=== PATIENT | male | born 1950 | race Caucasian/White ===

== ENCOUNTER 2017-05-28 12:00 | Inpatient (IN) | payer OTHER ==
[~2017-05-28] VITALS: Ht 177.8 cm; Wt 106.0 kg
[~2017-05-28 12:00] MED LIST: ACET-749 PO; ALBUAER19 INH; ALL300 PO; AMLO-110 PO; ASPI325T45 PO; ATV1 PO; CRS10 PO; DPKEC250 PO; ESCI1TAB10 PO; FAMO20TA11 PO; FERR325T51 PO; INDO25CA14 PO; KETO2CRE14 TOP; MCRK20 PO; SULF800T23 PO; TAMS0.4C38 PO; TRIA0.1C20 TOP; [UNRECOGNIZED DRUG - CODE] TOP
--- NOTE | 2017-05-28 12:23 | EMERGENCY ROOM VISIT NOTE ---
History Report prepared by Anthony: Kristie Velazco Under the Supervision of: Dr. Sherwin Bianchi M.D. First contact with patient: 12:18 Chief Complaint: KNEEPAIN Stated Complaint: LEFT KNEE PAIN History of Present Illness The patient is a 66 year old male who presents to the Emergency Room with complaints of sudden left knee pain beginning at 1000 this morning. The patient rates the pain at a 5/10. Per his family, the patient fell trying to get into the shower. Per family, the patient has had 4 hip surgeries and has a history of a total left knee replacement in August. His family also reports that his right knee has been quivering this past week. The patient denies hip, chest, and abdominal pain. Source of History: patient, family Onset: 1000 this morning Position: knee (left) Symptom Intensity: rated at a 5/10 Timing: other (sudden ) Associated Symptoms: No chest pain, No abdominal pain Review of Systems All systems have been listed, reviewed, and are negative other than those previously mentioned. Please see Additional Medical History Sheet. Past Medical & Surgical Medical Problems: (1) ARF (acute renal failure) (2) Hypertension (3) Hypoxia (4) Infected prosthesis of left hip (5) Left Periprosthetic Distal Femur Fracture (6) Mental retardation Family History No pertinent family history Social History Smoking Status: Never Smoker Alcohol Use: none Drug Use: none Marital Status: single Housing Status: lives with family Occupation Status: disabled Current/Historical Medications Scheduled Allopurinol (Zyloprim *), 300 MG PO BID Amlodipine (Norvasc), 5 MG PO DAILY Aspirin (Aspirin Ec), 81 MG PO DAILY Ciprofloxacin Tab (Cipro), 500 MG PO BID Divalproex Sodium Delay Rel (Depakote Delay Rel *), 250 MG PO QAM Divalproex Sodium Delay Rel (Depakote Delay Rel *), 500 MG PO HS Escitalopram (Lexapro), 10 MG PO DAILY Escitalopram Oxalate (Lexapro), 20 MG PO DAILY Fenofibrate (Tricor), 48 MG PO DAILY Iron-Vitamin C (Vitron-C), 1 TAB PO QAM Ketoconazole (Topical) (Nizoral A-D), 1 APPLN TOP Q72H Lorazepam (Ativan *), 1 MG PO HS Omeprazole (Prilosec), 40 MG PO QAM Rosuvastatin Calcium (Crestor *), 10 MG PO DAILY Tamsulosin Hcl (Flomax), 1 CAP PO DAILY Scheduled PRN Albuterol Inhaler (Ventolin Inhaler), 2 PUFFS INH Q2H PRN for Wheezing Indomethacin (Indomethacin), 50 MG PO TID PRN for GOUT Allergies Coded Allergies: BEE STING (Verified Allergy, Unknown, RASH, 05/05/15) Penicillins (Verified Allergy, Unknown, RASH, 05/05/15) Physical Exam Vital Signs Date Time Temp Pulse Resp B/P (MAP) Pulse Ox O2 Delivery O2 Flow Rate FiO2 05/28/17 14:24 94 18 142/86 95 Room Air 05/28/17 14:10 95 Room Air 05/28/17 12:13 36.9 105 22 92 Room Air Physical Exam GENERAL: Patient awake, alert, oriented x 3. Patient follows commands. Patient does not appear toxic. Patient is adequately hydrated and well- nourished. Appears mentally impaired. SKIN: No erythema, pallor, cyanosis or rash HEENT: Normal head, pupils equal, reactive to light and accommodation. LUNGS: Clear to auscultation. No wheezes, no rales, no rhonchi. HEART: No murmurs. No gallops. No rubs ABDOMEN: Soft, non-tender. EXTREMITIES: Full range of motion of right hip and right knee. Patient appears to have adequate range of motion of left hip. Left knee is partially flexed and appears swollen. Sensory and circulatory function distally is intact on left leg. NEUROLOGIC: Cranial nerves II-XII within normal limits. No gross motor sensory function deficits. Medical Decision & Procedures ER Provider Diagnostic Interpretation: Radiology results as stated below per my review and radiologist interpretation: L KNEE 1 OR 2 VIEWS ROUTINE CLINICAL HISTORY: Left knee pain status post trauma COMPARISON: None. DISCUSSION: There are postsurgical changes of a total left knee arthroplasty. There is a displaced oblique/spiral fracture of the metadiaphyseal portion of the distal femur. The fracture begins at the level of hip arthroplasty femoral spike. The fracture demonstrates 3.6 mm of maximal distraction. There is 16 degrees of vertex posterior angulation. IMPRESSION: Displaced oblique/spiral fracture of the metadiaphyseal portion of the distal femur. Electronically signed by: Benny Viramontes M.D. 05/28/2017 1:38 PM Dictated Date/Time: 05/28/2017 1:35 PM L PELVIS/UNILATERAL HIP 2-3VIEWS CLINICAL HISTORY: fell trauma. Pain. COMPARISON: None. DISCUSSION: Findings diffuse heterotopic bone formation involving the left acetabulum and proximal left femoral region. Extensive heterotopic bone formation may indicate a healing process. No evidence for well-defined fracture. Mild acetabular protrusion. IMPRESSION: 1. No acute bony abnormality. 2. Extensive heterotopic bone formation surrounding the left hemipelvis and left femoral shaft most likely on a post procedural bases. The above report was generated using voice recognition software. It may contain grammatical, syntax or spelling errors. Electronically signed by: Carlos Snell M.D. 05/28/2017 1:34 PM Dictated Date/Time: 05/28/2017 1:25 PM CHEST ONE VIEW PORTABLE HISTORY: Preop. COMPARISON: Chest 08/15/2015. FINDINGS: There are low lung volumes. No pleural effusions. No pneumothorax. No focal lung consolidations to suggest pneumonia. No evidence for pulmonary edema. The heart is mildly enlarged. IMPRESSION: Low lung volumes and mild cardiomegaly. Electronically signed by: Jamal Rose M.D. 05/28/2017 1:43 PM Dictated Date/Time: 05/28/2017 1:42 PM Laboratory Results 05/28/17 13:50 Red Blood Count 4.69, Mean Corpuscular Volume 82.3, Mean Corpuscular Hemoglobin 27.5, Mean Corpuscular Hemoglobin Concent 33.4, Mean Platelet Volume 9.5, Neutrophils (%) (Auto) 89.8, Lymphocytes (%) (Auto) 4.1, Monocytes (%) (Auto) 5.5, Eosinophils (%) (Auto) 0.2, Basophils (%) (Auto) 0.1, Neutrophils # (Auto) 14.16, Lymphocytes # (Auto) 0.65, Monocytes # (Auto) 0.86, Eosinophils # (Auto) 0.03, Basophils # (Auto) 0.02 05/28/17 13:50 Test 05/28/17 13:50 White Blood Count 15.77 K/uL (4.8-10.8) Red Blood Count 4.69 M/uL (4.7-6.1) Hemoglobin 12.9 g/dL (14.0-18.0) Hematocrit 38.6 % (42-52) Mean Corpuscular Volume 82.3 fL (80-100) Mean Corpuscular Hemoglobin 27.5 pg (25-34) Mean Corpuscular Hemoglobin Concent 33.4 g/dl (32-36) Platelet Count 313 K/uL (130-400) Mean Platelet Volume 9.5 fL (7.4-10.4) Neutrophils (%) (Auto) 89.8 % Lymphocytes (%) (Auto) 4.1 % Monocytes (%) (Auto) 5.5 % Eosinophils (%) (Auto) 0.2 % Basophils (%) (Auto) 0.1 % Neutrophils # (Auto) 14.16 K/uL (1.4-6.5) Lymphocytes # (Auto) 0.65 K/uL (1.2-3.4) Monocytes # (Auto) 0.86 K/uL (0.11-0.59) Eosinophils # (Auto) 0.03 K/uL (0-0.5) Basophils # (Auto) 0.02 K/uL (0-0.2) RDW Standard Deviation 46.1 fL (36.4-46.3) RDW Coefficient of Variation 15.6 % (11.5-14.5) Immature Granulocyte % (Auto) 0.3 % Immature Granulocyte # (Auto) 0.05 K/uL (0.00-0.02) Anion Gap 9.0 mmol/L (3-11) Est Creatinine Clear Calc Drug Dose 68.1 ml/min Estimated GFR () 65.9 Estimated GFR (Non- 56.9 BUN/Creatinine Ratio 18.3 (10-20) Calcium Level 9.3 mg/dl (8.5-10.1) Total Bilirubin 0.3 mg/dl (0.2-1) Aspartate Amino Transf (AST/SGOT) 10 U/L (15-37) Alanine Aminotransferase (ALT/SGPT) 20 U/L (12-78) Alkaline Phosphatase 116 U/L (45-117) Total Protein 8.1 gm/dl (6.4-8.2) Albumin 3.6 gm/dl (3.4-5.0) Globulin 4.5 gm/dl (2.5-4.0) Albumin/Globulin Ratio 0.8 (0.9-2) Laboratory results as stated above per my review. Medications Administered Medications (Trade) Dose Ordered Sig/Miranda Route Start Time Stop Time Status Last Admin Dose Admin Oxycodone/ Acetaminophen (Percocet 5-325mg Tab) 1 tab ONE ONCE PO 05/28/17 12:30 05/28/17 12:31 DC 05/28/17 12:34 1 TAB Oxycodone HCl (Roxicodone Immediate Rel Tab) `1-2 tabs for pain 1 tab ... Q4HWA PRN PO 05/28/17 15:15 06/11/17 15:14 05/28/17 17:14 5 MG ECG Indication: weakness Rate (beats per minute): 97 Rhythm: sinus rhythm Findings: 1st degree AV block, nonspecific-ST abn, other (left ventricular hypertrophy) ED Course 1219: Past medical records reviewed. The patient was evaluated in room C10. A complete history and physical examination was performed. 1230: Ordered Oxycodone/ Acetaminophen 1 tab PO. 1438: Discussed the patient's case with Dr. Perry, and he suggested I call medicine. 1455: Discussed the patient's case with Dr. Rea. The patient will be evaluated for further management. 1525: Discussed the patient's case with Dr. Perry. The patient will be evaluated for further management. 1541: Upon reevaluation, the patient is resting.I discussed today's findings with him and his family. He and his family verbalized agreement of the treatment plan. I spoke with Dr. Rea of the [facility] to evaluate the patient for further management. Medical Decision Nurses notes reviewed. Medical history sheet reviewed. Differential diagnosis includes but is not limited to: fracture and dislocation of left knee and left hip. Multiple labs, EKG and imaging were obtained. Please see above. The patient has a spiral fracture of his distal right femur. White count is slightly elevated. Patient is mildly anemic. I discussed care with the hospitalist and with the orthopedist. I also discussed care with the patient and family members. The patient will require further evaluation and treatment in the hospital. Medication Reconcilliation Current Medication List: was personally reviewed by me Blood Pressure Screening Patient's blood pressure: Elevated blood pressure will be monitored by hospitalist Consults Time Called: 1410 [facility] Call: 1432 Discussed the patient's case with Dr. Perry. Dr. Perry suggested I call medicine. Additional Consults: Time Called: 1450 Consulted Physician: Dr. Rea- [facility] Returned Call: 1451 Additional Comments: Discussed the patient's case with Dr. Rea. The patient will be evaluated for further management. Time Called: 1520 [facility] Returned Call: 1525 Additional Comments: Discussed the patient's case with Dr. Perry. The patient will be evaluated for further management. Impression Primary Impression: Femur fracture, left Scribe Attestation The scribe's documentation has been prepared under my direction and personally reviewed by me in its entirety. I confirm that the note above accurately reflects all work, treatment, procedures, and medical decision making performed by me. Departure Information Dispostion Being Evaluated By Hospitalist Referrals No Doctor, Assigned (PCP) Patient Instructions [facility]
[2017-05-28] MEDS ORDERED: OXYCODONE/ACETAMINOPHEN 5-325 TAB PO ONE (12:30)
--- NOTE | 2017-05-28 13:36 | DIAGNOSTIC IMAGING REPORT ---
L PELVIS/UNILATERAL HIP 2-3VIEWS CLINICAL HISTORY: fell trauma. Pain. COMPARISON: None. DISCUSSION: Findings diffuse heterotopic bone formation involving the left acetabulum and proximal left femoral region. Extensive heterotopic bone formation may indicate a healing process. No evidence for well-defined fracture. Mild acetabular protrusion. IMPRESSION: 1. No acute bony abnormality. 2. Extensive heterotopic bone formation surrounding the left hemipelvis and left femoral shaft most likely on a post procedural bases. The above report was generated using voice recognition software. It may contain grammatical, syntax or spelling errors. Electronically signed by: Carlos Snell M.D. 05/28/2017 1:34 PM Dictated Date/Time: 05/28/2017 1:25 PM
--- NOTE | 2017-05-28 13:40 | DIAGNOSTIC IMAGING REPORT ---
L KNEE 1 OR 2 VIEWS ROUTINE CLINICAL HISTORY: Left knee pain status post trauma COMPARISON: None. DISCUSSION: There are postsurgical changes of a total left knee arthroplasty. There is a displaced oblique/spiral fracture of the metadiaphyseal portion of the distal femur. The fracture begins at the level of hip arthroplasty femoral spike. The fracture demonstrates 3.6 mm of maximal distraction. There is 16 degrees of vertex posterior angulation. IMPRESSION: Displaced oblique/spiral fracture of the metadiaphyseal portion of the distal femur. Electronically signed by: Benny Viramontes M.D. 05/28/2017 1:38 PM Dictated Date/Time: 05/28/2017 1:35 PM
--- NOTE | 2017-05-28 13:44 | DIAGNOSTIC IMAGING REPORT ---
CHEST ONE VIEW PORTABLE HISTORY: Preop. COMPARISON: Chest 08/15/2015. FINDINGS: There are low lung volumes. No pleural effusions. No pneumothorax. No focal lung consolidations to suggest pneumonia. No evidence for pulmonary edema. The heart is mildly enlarged. IMPRESSION: Low lung volumes and mild cardiomegaly. Electronically signed by: Jamal Rose M.D. 05/28/2017 1:43 PM Dictated Date/Time: 05/28/2017 1:42 PM
[2017-05-28 14:10] VITALS: O2SAT 95; Ht 177.8 cm; Wt 106.0 kg
[2017-05-28] MEDS ORDERED: ASPI81TA28 PO (14:15)
[2017-05-28] MEDS ORDERED: ESCI10TA17 PO (14:15)
[2017-05-28] MEDS ORDERED: FENO48TA9 PO (14:20)
[2017-05-28 14:25] LABS: BUN/CREATININE RATIO 18.3 (10-20); CALCIUM 9.3 mg/dl (8.5-10.1); CREATININE 1.3 mg/dl (0.60-1.40); POTASSIUM 3.7 mmol/L (3.5-5.1)
[2017-05-28] MEDS ORDERED: PRLSR20 PO (14:26)
[2017-05-28 14:27] LABS: ALB/GLOB RATIO 0.8 (0.9-2)
[2017-05-28] MEDS ORDERED: FERRTAB18 PO (14:27)
[2017-05-28] MEDS ORDERED: CIPR1TAB11 PO (14:35)
[2017-05-28 14:40] LABS: BASO % 0.1 %; BASO ABS # 0.02 K/uL (0-0.2); COMPLETE YES; EOS % 0.2 %; HEMATOCRIT 38.6 % (42-52); IG% 0.3 %; LYMPH % 4.1 %; LYMPH ABS # 0.65 K/uL (1.2-3.4); MEAN CELL VOLUME 82.3 fL (80-100); MEAN CORPUSCULAR HEMOGLOBIN 27.5 pg (25-34); MEAN CORPUSCULAR HGB CONC 33.4 g/dl (32-36); MEAN PLATELET VOLUME 9.5 fL (7.4-10.4); MONO % 5.5 %; NEUT % 89.8 %; PLATELET COUNT 313 K/uL (130-400); RED BLOOD COUNT 4.69 M/uL (4.7-6.1); WHITE BLOOD COUNT 15.77 K/uL (4.8-10.8)
[2017-05-28] MEDS ORDERED: INFLUENZA ADMINISTRATION CHARGE ONE (15:15)
[2017-05-28] MEDS ORDERED: INFLUENZA VACCINE HIGH DOSE 65+ 0.5 ML SYR IM. ONE (15:15)
[2017-05-28] MEDS ORDERED: KETOROLAC TROMETHAMINE 15 MG/ML VIAL IV. PRN (15:15)
[2017-05-28] MEDS ORDERED: MAGNESIUM HYDROXIDE SUSP 30 ML UDC PO PRN (15:15)
[2017-05-28] MEDS ORDERED: ALBUTEROL HFA 8 GM INHALER INH PRN ×2 (15:15→15:30)
[2017-05-28] MEDS ORDERED: MoRPHine SULFATE 2 MG/ML CARP IV PRN (15:15)
[2017-05-28] MEDS ORDERED: ONDANSETRON INJ 2 MG/ML 2 ML VIAL IV PRN (15:15)
[2017-05-28] MEDS ORDERED: MoRPHine SULFATE 4 MG/ML 1 ML CARP\\VIAL IV PRN (15:15)
[2017-05-28] MEDS ORDERED: ALUMINUM/MAGNESIUM SUSP 30 ML UDC PO PRN (15:15)
[2017-05-28] MEDS ORDERED: OXYCODONE HCL IR 5 MG TAB (IMMEDIATE RELEASE) PO PRN (15:15)
[2017-05-28] MEDS ORDERED: OXYCODONE/ACETAMINOPHEN 5-325 TAB PO PRN (15:30)
[2017-05-28] MEDS ORDERED: KETOCONAZOLE TOP SCH (15:30)
[2017-05-28] MEDS ORDERED: INDOMETHACIN 25 MG CAP PO PRN (15:30)
--- NOTE | 2017-05-28 15:44 | Medical Consult ---
Consultation Date of Consultation: May 28, 2017. Attending Physician: Reason for Consultation: Medical management History of Present Illness Patient is a pleasant 66 y/o male, with PMHx of HTN, hypercholesterolemia, prediabetic, seizure disorder, anxiety, depression, gout, iron deficiency anemia , BPH, and GERD, who presented to the ED due to a fall. History came largely from family at bedside due to patient's h/o mental retardation. Patient was trying to get into the shower when he slipped and fell, landing on L side. Family witnessed entire event. No LOC/syncope. No head injury. Pain is currently well controlled. Fall resulted in L distal femur fracture. No h/o MA, CHF. No history of TIA/CVA, PE/DVT. Patient is currently prediabetic- diet controlled. Family notes he has gained some weight over the last few months. He is on chronic Cipro BID suppression therapy due to L hip infection. He has had multiple surgical procedures in the past w/ no complications. Patient denies any fever, chills, sweats, lightheadedness, dizziness, vision changes, CP, palpitations, edema, SOB, wheezing, cough, abdominal pain, nausea, vomiting, diarrhea, urinary symptoms, melena, numbness/tingling, weakness, anxiety/ depression, active bleeding, or new skin discoloration/changes. Past Medical/Surgical History Medical Problems: HTN Gout seizure disorder anxiety depression iron deficiency anemia BPH hypercholesterolemia GERD prediabetic, diet controlled mental retardation Surgical history: L hip surgery x4 L knee replacement hernia repair Family History No pertinent family history Social History Smoking Status: Never Smoker Drug Use: none Marital Status: single Housing Status: lives with family Occupation Status: disabled Allergies Coded Allergies: BEE STING (Verified Allergy, Unknown, RASH, 05/05/15) Penicillins (Verified Allergy, Unknown, RASH, 05/05/15) Home Medications Reported Home Medications Medications Dose Route/Sig Max Daily Dose Days Date Category Dose Instructions Cipro (Ciprofloxacin) 250 Mg Tab 500 Mg PO BID 05/28/17 Reported Vitron-C (Iron-Vitamin C) 1 Tab Tab 1 Tab PO QAM 05/28/17 Reported Prilosec (Omeprazole) 20 Mg Capcr 40 Mg PO QAM 05/28/17 Reported Tricor (Fenofibrate) 48 Mg Tab 48 Mg PO DAILY 05/28/17 Reported Lexapro (Escitalopram Oxalate) 10 Mg Tab 10 Mg PO DAILY 05/28/17 Reported 30MG TOTAL Aspirin Ec (Aspirin) 81 Mg Tab 81 Mg PO DAILY 05/28/17 Reported Nizoral A-D (Ketoconazole (Topical)) 1 % Sha 1 Appln TOP Q72H 06/28/15 Reported Indomethacin 25 Mg Cap 50 Mg PO TID PRN 06/28/15 Reported Lexapro (Escitalopram Oxalate) 20 Mg Tab 20 Mg PO DAILY 06/21/15 Reported 30MG TOTAL Ventolin Inhaler (Albuterol) Aers 2 Puffs INH Q2H PRN 06/06/15 Reported Norvasc (Amlodipine Besylate) 5 Mg Tab 5 Mg PO DAILY 06/06/15 Reported Flomax (Tamsulosin Hcl) 0.4 Mg Cap 1 Cap PO DAILY 05/05/15 Reported Ativan * (Lorazepam) 1 Mg Tab 1 Mg PO HS 05/16/10 Reported Zyloprim * (Allopurinol) 300 Mg Tab 300 Mg PO BID 05/16/10 Reported Crestor * (Rosuvastatin Calcium) 10 Mg Tab 10 Mg PO DAILY 05/16/10 Reported Depakote Delay Rel * (Divalproex Sodium) 250 Mg Tabec 500 Mg PO HS 05/16/10 Reported Depakote Delay Rel * (Divalproex Sodium) 250 Mg Tabec 250 Mg PO QAM 05/16/10 Reported Current Inpatient Medications Current Inpatient Medications Medications (Trade) Dose Ordered Sig/Miranda Route Start Time Stop Time Status Last Admin Dose Admin Influenza Virus Vaccine (Fluzone High-Dose Pf 0.5 ml) 0.5 ml ONCE ONCE IM. 05/28/17 15:15 05/28/17 15:16 Physical Exam Date Time Temp Pulse Resp B/P (MAP) Pulse Ox O2 Delivery O2 Flow Rate FiO2 05/28/17 14:24 94 18 142/86 95 Room Air 05/28/17 14:10 95 Room Air 05/28/17 12:13 36.9 105 22 92 Room Air General Appearance: no apparent distress, + pertinent finding (mentally impaired ) Eyes: normal inspection, PERRL ENT: hearing grossly normal Neck: supple Respiratory/Chest: lungs clear, no respiratory distress, no accessory muscle use Cardiovascular: regular rate, rhythm Abdomen/GI: normal bowel sounds, non tender, soft Extremities/Musculoskelatal: no calf tenderness, no pedal edema Neurologic/Psych: alert, oriented x 3 Skin: normal color, warm/dry, no rash Laboratory Results Last 24 Hours Test 05/28/17 13:50 White Blood Count 15.77 K/uL Red Blood Count 4.69 M/uL Hemoglobin 12.9 g/dL Hematocrit 38.6 % Mean Corpuscular Volume 82.3 fL Mean Corpuscular Hemoglobin 27.5 pg Mean Corpuscular Hemoglobin Concent 33.4 g/dl Platelet Count 313 K/uL Mean Platelet Volume 9.5 fL Neutrophils (%) (Auto) 89.8 % Lymphocytes (%) (Auto) 4.1 % Monocytes (%) (Auto) 5.5 % Eosinophils (%) (Auto) 0.2 % Basophils (%) (Auto) 0.1 % Neutrophils # (Auto) 14.16 K/uL Lymphocytes # (Auto) 0.65 K/uL Monocytes # (Auto) 0.86 K/uL Eosinophils # (Auto) 0.03 K/uL Basophils # (Auto) 0.02 K/uL RDW Standard Deviation 46.1 fL RDW Coefficient of Variation 15.6 % Immature Granulocyte % (Auto) 0.3 % Immature Granulocyte # (Auto) 0.05 K/uL Sodium Level 137 mmol/L Potassium Level 3.7 mmol/L Chloride Level 103 mmol/L Carbon Dioxide Level 25 mmol/L Anion Gap 9.0 mmol/L Blood Urea Nitrogen 24 mg/dl Creatinine 1.30 mg/dl Est Creatinine Clear Calc Drug Dose 68.1 ml/min Estimated GFR () 65.9 Estimated GFR (Non- 56.9 BUN/Creatinine Ratio 18.3 Random Glucose 167 mg/dl Calcium Level 9.3 mg/dl Total Bilirubin 0.3 mg/dl Aspartate Amino Transf (AST/SGOT) 10 U/L Alanine Aminotransferase (ALT/SGPT) 20 U/L Alkaline Phosphatase 116 U/L Total Protein 8.1 gm/dl Albumin 3.6 gm/dl Globulin 4.5 gm/dl Albumin/Globulin Ratio 0.8 Assessment & Plan Patient is a pleasant 66 y/o male, with PMHx of HTN, hypercholesterolemia, prediabetic, seizure disorder, anxiety, depression, gout, iron deficiency anemia , BPH, and GERD, who presented to the ED due to a fall. L distal femur fracture secondary to mechanical fall: - Management as per orthopedics - Pain management with Percocet PRN- given in ED w/ good results - Will hold ASA daily pending ?surgical intervention by ortho - Patient has RCRI of 0.4%- low risk, no further cardiovascular workup required - Check vitamin D level Chronic suppression therapy for infected L hip: Continue Cipro 500 mg BID Prediabetic- diet controlled: - Check HgbA1c - BSG ACHS and ISS HTN: Continue Norvasc 5 mg daily Seizure disorder: Continue Depakote 250 mg QAM and 500 mg HS Anxiety, depression: Continue Lexapro 30 mg daily, Ativan 1 mg HS Gout: Continue Allopurinol 300 mg BID, Indomethacin 50 mg TID PRN Iron deficient anemia- baseline hgb 10-11- STABLE: Follow CBC Hypercholesterolemia: Continue Crestor 10 mg daily BPH: Continue Flomax 0.4 mg daily GERD: Protonix 40 mg daily- resume Prilosec at discharge DVT prophylaxis: As per orthopedics Dispo: As per primary team Reviewed: Pt Seen/Exam by Me History Pt has no new concerns. Denies pain related to his fracture. Family is present and state that pt was getting into the shower and did not clear the small lip of the bathtub. He fell but she was able to manage him initially to finish the shower, however after he was out, pt was unable to move due to pain. Family states that he does ambulate some, but not much due to a poorly healed hip replacement. He does not have any issues with the minimal steps that he does take. No c/o chest pain or SOB. Family states that pt does have some snoring/gasping at night. PCP wanted to have a sleep study done, however pt would not tolerate this so he has not been assessed for likely DANNA. Agree with HPI/ROS as noted. Family states that Dr. Rm was in to see pt and indicated that OR will likely be tomorrow. General Appearance: WD/WN, no apparent distress Respiratory: normal breath sounds, no respiratory distress Cardiovascular: normal peripheral pulses, regular rate, rhythm Gastrointestinal: non tender, soft Extremities: non-tender, no pedal edema Neurologic/Psychiatric: alert, other (answers yes/no questions, follows simple commands, pleasant) Skin Characteristics: normal color, warm/dry Assessment/Plan Agree with plan as outlined above L femur fracture s/p mechanical fall, planning for OR tomorrow Pt with baseline MR and will need family present for MDM
[2017-05-28] MEDS: INSULIN ASPART 100 UNITS/ML 3 ML PEN SC SCH ×3 (16:00→21:00)
[2017-05-28 16:30] VITALS: BP 135/81; PULSE 95; TEMP 36.9; O2SAT 94
[2017-05-28] MEDS ORDERED: GLUCOSE 10 TABS/TUBE PO PRN (16:30)
[2017-05-28] MEDS ORDERED: GLUCAGON FOR INJ 1 MG VIAL SQ PRN (16:30)
[2017-05-28] MEDS ORDERED: DEXTROSE 50% 50 ML SYR IV PRN (16:30)
[2017-05-28] MEDS ORDERED: GLUCOSE 40% GEL 15 GM TUBE PO PRN (16:30)
[2017-05-28] MEDS ORDERED: D5W AND 1/2NSS 1,000 ML IV SCH (17:15)
[2017-05-28 17:59] LABS: URINE APPEARANCE CLEAR (CLEAR); URINE BILIRUBIN NEG (NEG); URINE COLOR YELLOW; URINE NITRITE NEG (NEG); URINE SPECIFIC GRAVITY 1.023 (1.000-1.030); UROBILINOGEN NEG (NEG); ZZUR CULT IF INDIC CLEAN CATCH NO
[2017-05-28 18:01] LABS: MANUAL MICROSCOPIC REQUIRED? NO; REVIEW REQ? NO
[2017-05-28] MEDS: ROSUVASTATIN CALCIUM 10 MG TAB PO SCH (18:32)
[2017-05-28] MEDS: FENOFIBRATE 48 MG TAB PO SCH (18:32)
[2017-05-28] MEDS: SODIUM CHLORIDE 0.9% 1000ML 1,000 ML IV SCH (19:19)
[2017-05-28] MEDS ORDERED: ALLOPURINOL 300 MG TAB PO SCH (21:00)
[2017-05-28] MEDS ORDERED: LORAZEPAM 1 MG TAB PO SCH (21:00)
[2017-05-28] MEDS ORDERED: DIVALPROEX SODIUM 250 MG DELAY REL TAB PO SCH (21:00)
[2017-05-28] MEDS: LORAZEPAM 1 MG TAB PO SCH (21:26)
[2017-05-28] MEDS: DOCUSATE SODIUM 100 MG CAP PO SCH (21:26)
[2017-05-28] MEDS: CIPROFLOXACIN 250 MG TAB PO SCH (21:26)
[2017-05-28] MEDS: DIVALPROEX SODIUM 250 MG DELAY REL TAB PO SCH (21:26)
[2017-05-28] MEDS: ALLOPURINOL 300 MG TAB PO SCH (21:26)
[2017-05-28] MEDS: ACETAMINOPHEN 500 MG TAB PO SCH (21:27)
--- NOTE | 2017-05-28 21:30 | DIAGNOSTIC IMAGING REPORT ---
L FEMUR 2 VIEWS ROUTINE CLINICAL HISTORY: Femur fracture. COMPARISON: Left hip radiographs August 31, 2015 and left knee radiographs May 28, 2017 at 12:58 PM. FINDINGS: Note is made of an acute moderately displaced spiral fracture through the mid to distal shaft of the left femur. Fracture begins at the level of the hip arthroplasty femoral spike. Fracture extends to the metadiaphyseal portion of the distal left femur. A left knee arthroplasty is noted. A revision left hip arthroplasty is noted with cerclage wires and a lateral plate. On lateral projection, there appears to be posterior displacement of the lateral plate with respect to the femur. There is extensive heterotopic ossification and bony irregularity. IMPRESSION: 1. Acute moderately displaced oblique fracture of the metadiaphyseal portion of the distal left femur. 2. Status post revision left hip arthroplasty with lateral plate and cerclage wires. Extensive heterotopic ossification/postsurgical change. Age indeterminate apparent posterior displacement of the lateral plate with respect to the femoral shaft. Electronically signed by: Skyler Manzanares M.D. 05/28/2017 9:29 PM Dictated Date/Time: 05/28/2017 9:22 PM
[2017-05-28 23:01] VITALS: BP 125/72; PULSE 86; TEMP 37; O2SAT 91
[2017-05-29] VITALS (7 sets, daily range): BP systolic 104–140; BP diastolic 69–100; PULSE 68–109; TEMP 36.2–36.9; O2SAT 91–96
[2017-05-29] MEDS ORDERED: NURSING VERBAL MED ORDER ONE (01:45)
[2017-05-29] MEDS ORDERED: CLINDAMYCIN IV 900 MG in DEXTROSE 5% 100ML 100 ML IV SCH (06:00)
[2017-05-29] MEDS: INSULIN ASPART 100 UNITS/ML 3 ML PEN SC SCH ×4 (06:00→20:49)
[2017-05-29] MEDS: ACETAMINOPHEN 500 MG TAB PO SCH ×3 (06:01→20:41)
[2017-05-29 06:29] LABS: HEMATOCRIT 34.4 % (42-52); MEAN CELL VOLUME 82.7 fL (80-100); MEAN CORPUSCULAR HEMOGLOBIN 27.4 pg (25-34); MEAN CORPUSCULAR HGB CONC 33.1 g/dl (32-36); MEAN PLATELET VOLUME 9.6 fL (7.4-10.4); PLATELET COUNT 296 K/uL (130-400); RED BLOOD COUNT 4.16 M/uL (4.7-6.1); WHITE BLOOD COUNT 8.02 K/uL (4.8-10.8)
[2017-05-29 07:05] LABS: BUN/CREATININE RATIO 22.7 (10-20); CALCIUM 8.3 mg/dl (8.5-10.1); CREATININE 1.16 mg/dl (0.60-1.40); POTASSIUM 3.7 mmol/L (3.5-5.1)
--- NOTE | 2017-05-29 08:13 | HISTORY & PHYSICAL EXAMINATION ---
DATE OF ADMISSION: 05/28/2017 CHIEF COMPLAINT: Pain in left knee. HISTORY OF PRESENT ILLNESS: The patient is 66-year-old white male with a history of mental retardation, history has been taken a little bit from the patient and also from the current chart. Family is not present. He apparently was getting into the shower yesterday and family was helping him and he ended up slipping and falling and hitting his knee. He was brought to the Emergency Room and was seen by the staff and was found that he had a distal femur fracture of the left femur near the total knee prosthesis. The patient also has a history of a revision KARTHIK of the left hip in the past and being on chronic suppression for infection. We were asked to see the patient for this injury and the patient was seen briefly by Dr. Rm in the Emergency Room and he was then admitted under Dr. Perry's service for further orthopedic care. There was apparently no loss of consciousness after the fall. There was no syncope or complaints of chest pain or shortness of breath prior to the fall or after. PAST MEDICAL HISTORY: Hypertension; gout; seizure disorder; anxiety; depression; iron deficiency anemia; BPH; hypercholesterolemia; GERD; prediabetic, diet controlled; and mental retardation. PAST SURGICAL HISTORY: Left total knee replacement [place] [address] Simon, bipolar hemiarthroplasty [place] [address] 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 Simon approximately 1 month after implantation of bipolar hemiarthroplasty. Since that time, the patient has undergone a revision of his hemiarthroplasty to total hip arthroplasty. He also has a history of a hernia repair in the past. FAMILY HISTORY: Noncontributory. SOCIAL HISTORY: The patient is a nonsmoker. He does not drink alcohol and lives with family. MEDICATIONS: Cipro 500 mg p.o. b.i.d., vitamin C every day, Prilosec 40 mg p.o. q.a.m., Tricor 48 mg p.o. daily, Lexapro 10 mg p.o. daily, aspirin 81 mg p.o. daily, Nizoral A-D 1 application topically q. 72 hours, indomethacin 50 mg p.o. t.i.d. p.r.n., Lexapro 20 mg p.o. daily, Ventolin inhaler 2 puffs inhaled q. 2 hours p.r.n., Norvasc 5 mg p.o. daily, Flomax 1 cap p.o. daily, Ativan 1 mg p.o. at bedtime, Zyloprim 300 mg p.o. b.i.d., Crestor 100 mg p.o. daily, and Depakote 500 mg p.o. at bedtime and 250 mg p.o. q.a.m. ALLERGIES: BEE STINGS AND PENICILLIN. REVIEW OF SYSTEMS: Difficult to go over with the patient; however, apparently no obvious fevers or chills. No shortness of breath or chest pain. No lightheadedness. No shortness of breath. No abdominal pain. No hematuria, dysuria or pyuria. No recent seizures. No CVA or TIA. PHYSICAL EXAMINATION: GENERAL: The patient is a 66-year-old white male who appears his stated age. Currently, he is awake and alert and answers a few questions appropriately. Otherwise, he is difficult to understand. He appears to be in no acute distress and is pleasant. HEENT: Normocephalic and atraumatic. There is no scleral icterus or injection. Nasal airway appears patent. Oral mucosa is pink and moist. NECK: Supple. HEART: Regular rate and rhythm. LUNGS: Clear to auscultation. ABDOMEN: Soft, round and nontender. Bowel sounds are present x4. GENITALIA AND RECTAL: Not performed at this time. EXTREMITIES: On examination of the patient's left lower extremity, he is in 5 pounds of Garcia's traction, which is left on during exam. He has the knee in approximately about 40 degrees of flexion and does not move the left lower extremity. He states he is not having any pain at this time, but has noted swelling around the left knee due to fracture hematoma. He does not appear to be tender on palpation of the knee to self. He is moving his ankle and toes quite well and states he has good sensation to his toes. He denies any left hip pain. Scars noted from previous surgeries. Right lower extremity is nontender on palpation and he has good range of motion of the right hip, knee and ankle. Upper extremities are essentially benign at this time. He is nontender at the shoulders, elbows and wrists and has good range of motion. Neck is nontender on palpation and he has good range of motion of his neck at this time. He is denying any thoracic or low back pain. There is no gross motor or sensory deficits seen at this time other than that he is not moving his left lower extremity, mainly at the knee and hip due to fracture. ASSESSMENT: Left distal femur fracture, periprosthetic. PLAN: The patient will need likely ORIF of the left distal femur with a large [employer] periarticular plate and screw device versus possibly a closed reduction and casting. With his chronic suppression, there is always the chance of this hardware being placed and could be infected from his previous hip infection; however, putting him in a cast obviously will make him less mobile and more risk for DVT. Final decisions will be made by Dr. Simon and/or Dr. Copeland, who will be performing possible surgery. We will discuss this with the family when they arrive. NARDA
[2017-05-29 08:16] LABS: ESTIMATED AVERAGE GLUCOSE 140 mg/dl; HA1C FLAG Normal (Normal)
[2017-05-29] MEDS: SODIUM CHLORIDE 0.9% 1000ML 1,000 ML IV SCH (08:23)
[2017-05-29] MEDS ORDERED: ROSUVASTATIN CALCIUM 10 MG TAB PO SCH (09:00)
[2017-05-29] MEDS ORDERED: NON-FORMULARY MEDICATION (Iron-Vitamin C (Vitron-C) 1 TAB) PO SCH (09:00)
[2017-05-29] MEDS ORDERED: TAMSULOSIN HCL 0.4 MG CAP PO SCH (09:00)
[2017-05-29] MEDS ORDERED: ESCITALOPRAM OXALATE 10 MG TAB PO SCH (09:00)
[2017-05-29] MEDS ORDERED: AMLODIPINE BESYLATE 5 MG TAB PO SCH (09:00)
[2017-05-29] MEDS ORDERED: PANTOprazole SOD 40 MG TAB PO SCH (09:00)
[2017-05-29] MEDS ORDERED: FENOFIBRATE 48 MG TAB PO SCH (09:00)
[2017-05-29] MEDS ORDERED: ESCITALOPRAM OXALATE 20 MG TAB PO SCH (09:00)
[2017-05-29] MEDS ORDERED: DIVALPROEX SODIUM 250 MG DELAY REL TAB PO SCH (09:00)
[2017-05-29] MEDS: ROSUVASTATIN CALCIUM 10 MG TAB PO SCH (09:13)
[2017-05-29] MEDS: DOCUSATE SODIUM 100 MG CAP PO SCH ×2 (09:13→20:42)
[2017-05-29] MEDS: CIPROFLOXACIN 250 MG TAB PO SCH ×2 (09:13→20:40)
[2017-05-29] MEDS: TAMSULOSIN HCL 0.4 MG CAP PO SCH (09:14)
[2017-05-29] MEDS: DIVALPROEX SODIUM 250 MG DELAY REL TAB PO SCH ×2 (09:14→20:40)
[2017-05-29] MEDS: AMLODIPINE BESYLATE 5 MG TAB PO SCH (09:15)
[2017-05-29] MEDS: ESCITALOPRAM OXALATE 10 MG TAB PO SCH (09:15)
[2017-05-29] MEDS: ESCITALOPRAM OXALATE 20 MG TAB PO SCH (09:15)
[2017-05-29] MEDS: ALLOPURINOL 300 MG TAB PO SCH ×2 (09:16→20:51)
[2017-05-29] MEDS: FENOFIBRATE 48 MG TAB PO SCH (09:16)
[2017-05-29] MEDS: PANTOprazole SOD 40 MG TAB PO SCH (09:16)
--- NOTE | 2017-05-29 12:59 | Hospitalist Progress Note ---
Hospitalist Progress Note Date of Service May 29, 2017. (Alicia Wilson CRNP) Subjective Pt evaluation today including: conversation w/ patient, physical exam, chart review, lab review, review of inpatient medication list Mr. Posey is a very pleasant 66 year old man who is somewhat difficult to understand due to mental retardation. His brother is at bedside. He appears comfortable, tolerating Garcia's traction. He does not have complaints. He is NPO for possible surgery this afternoon. ROS Constitutional: no chills, aches, sweats or fever Respiratory: no sob,cough, sputum, or wheezing Cardiac: no chest pain, palpitations, edema, orthopnea or lightheadedness GI: no abdominal pain, nausea, vomiting, diarrhea or constipation : no dysuria or hesitancy Extremities: no joint pain or weakness Skin: no rash All Other Systems: Reviewed and Negative (Alicia Wilson CRNP) Medications Medications (Trade) Dose Ordered Sig/Miranda Route Start Time Stop Time Status Last Admin Dose Admin Allopurinol (Zyloprim Tab) 300 mg BID PO 05/28/17 21:00 06/27/17 20:59 05/29/17 09:16 300 MG Amlodipine Besylate (Norvasc Tab) 5 mg DAILY PO 05/29/17 09:00 06/28/17 08:59 05/29/17 09:15 5 MG Divalproex Sodium (Depakote Delay Rel Tab) 250 mg QAM PO 05/29/17 09:00 06/28/17 08:59 05/29/17 09:14 250 MG Divalproex Sodium (Depakote Delay Rel Tab) 500 mg HS PO 05/28/17 21:00 06/27/17 20:59 05/28/17 21:26 500 MG Escitalopram Oxalate (Lexapro Tab) 10 mg DAILY PO 05/29/17 09:00 06/28/17 08:59 05/29/17 09:15 10 MG Escitalopram Oxalate (Lexapro Tab) 20 mg DAILY PO 05/29/17 09:00 06/28/17 08:59 05/29/17 09:15 20 MG Fenofibrate (Tricor Tab) 48 mg DAILY PO 05/28/17 18:00 06/27/17 17:59 05/29/17 09:16 48 MG Lorazepam (Ativan Tab) 1 mg HS PO 05/28/17 21:00 06/27/17 20:59 05/28/17 21:26 1 MG Rosuvastatin Calcium (Crestor Tab) 10 mg DAILY PO 05/28/17 18:00 06/27/17 17:59 05/29/17 09:13 10 MG Tamsulosin HCl (Flomax Cap) 0.4 mg DAILY PO 05/29/17 09:00 06/28/17 08:59 05/29/17 09:14 0.4 MG Docusate Sodium (coLACE CAP) 100 mg BID PO 05/28/17 21:00 06/27/17 20:59 05/29/17 09:13 100 MG Pantoprazole Sodium (Protonix Tab) 40 mg QAM PO 05/29/17 09:00 06/28/17 08:59 05/29/17 09:16 40 MG Oxycodone HCl (Roxicodone Immediate Rel Tab) `1-2 tabs for pain 1 tab ... Q4HWA PRN PO 05/28/17 15:15 06/11/17 15:14 05/28/17 17:14 5 MG Acetaminophen (Tylenol Tab) 1,000 mg Q8 PO 05/28/17 22:00 06/27/17 21:59 05/29/17 06:01 1,000 MG Ciprofloxacin (Ciprofloxacin Tab) 500 mg BID PO 05/28/17 21:00 06/27/17 20:59 05/29/17 09:13 500 MG Sodium Chloride 1,000 ml @ 75 mls/hr [id number] IV 05/28/17 18:15 06/27/17 18:14 05/29/17 08:23 75 MLS/HR (Alicia Wilson, NEETU) Objective Vital Signs Date Time Temp Pulse Resp B/P (MAP) Pulse Ox O2 Delivery O2 Flow Rate FiO2 05/29/17 08:25 95 Room Air 05/29/17 08:16 36.4 68 18 129/81 (97) 95 Room Air 05/29/17 07:25 Room Air 05/28/17 23:45 Room Air 05/28/17 23:01 37.0 86 18 125/72 (89) 91 Room Air 05/28/17 16:50 Room Air 05/28/17 16:30 36.9 95 18 135/81 (99) 94 Room Air 05/28/17 16:19 91 16 152/96 95 05/28/17 14:24 94 18 142/86 95 Room Air 05/28/17 14:10 95 Room Air (Alicia Wilson CRNP) Physical Exam Notes: General: no distress Eyes: normal inspection, PERLL Respiratory: chest non tender, clear to auscultation, normal breath sounds, no respiratory distress, no accessory muscle use Cardiac: regular rate and rhythm, no rub or gallop, no murmur, no edema, no jvd GI/: active bowel sounds, no abd pain or tenderness, soft, non distended Extremities: right knee edema with right leg in traction, immediate cap refill bilateral toes Neuro/Psych: alert and oriented x 3, normal mood and affect Skin: normal color, dry (Alicia Wilson CRNP) Laboratory Results Last 24 Hours Test 05/28/17 13:50 05/28/17 17:13 05/28/17 17:35 05/28/17 21:06 White Blood Count 15.77 K/uL Red Blood Count 4.69 M/uL Hemoglobin 12.9 g/dL Hematocrit 38.6 % Mean Corpuscular Volume 82.3 fL Mean Corpuscular Hemoglobin 27.5 pg Mean Corpuscular Hemoglobin Concent 33.4 g/dl Platelet Count 313 K/uL Mean Platelet Volume 9.5 fL Neutrophils (%) (Auto) 89.8 % Lymphocytes (%) (Auto) 4.1 % Monocytes (%) (Auto) 5.5 % Eosinophils (%) (Auto) 0.2 % Basophils (%) (Auto) 0.1 % Neutrophils # (Auto) 14.16 K/uL Lymphocytes # (Auto) 0.65 K/uL Monocytes # (Auto) 0.86 K/uL Eosinophils # (Auto) 0.03 K/uL Basophils # (Auto) 0.02 K/uL RDW Standard Deviation 46.1 fL RDW Coefficient of Variation 15.6 % Immature Granulocyte % (Auto) 0.3 % Immature Granulocyte # (Auto) 0.05 K/uL Sodium Level 137 mmol/L Potassium Level 3.7 mmol/L Chloride Level 103 mmol/L Carbon Dioxide Level 25 mmol/L Anion Gap 9.0 mmol/L Blood Urea Nitrogen 24 mg/dl Creatinine 1.30 mg/dl Est Creatinine Clear Calc Drug Dose 68.1 ml/min Estimated GFR () 65.9 Estimated GFR (Non- 56.9 BUN/Creatinine Ratio 18.3 Random Glucose 167 mg/dl Calcium Level 9.3 mg/dl Total Bilirubin 0.3 mg/dl Aspartate Amino Transf (AST/SGOT) 10 U/L Alanine Aminotransferase (ALT/SGPT) 20 U/L Alkaline Phosphatase 116 U/L Total Protein 8.1 gm/dl Albumin 3.6 gm/dl Globulin 4.5 gm/dl Albumin/Globulin Ratio 0.8 Bedside Glucose 131 mg/dl 132 mg/dl Urine Color YELLOW Urine Appearance CLEAR Urine pH 7.0 Urine Specific [place] 1.023 Urine Protein NEG Urine Glucose (UA) NEG Urine Ketones NEG Urine Occult Blood NEG Urine Nitrite NEG Urine Bilirubin NEG Urine Urobilinogen NEG Urine Leukocyte Esterase NEG Test 05/29/17 05:26 White Blood Count 8.02 K/uL Red Blood Count 4.16 M/uL Hemoglobin 11.4 g/dL Hematocrit 34.4 % Mean Corpuscular Volume 82.7 fL Mean Corpuscular Hemoglobin 27.4 pg Mean Corpuscular Hemoglobin Concent 33.1 g/dl RDW Standard Deviation 46.4 fL RDW Coefficient of Variation 15.5 % Platelet Count 296 K/uL Mean Platelet Volume 9.6 fL Sodium Level 136 mmol/L Potassium Level 3.7 mmol/L Chloride Level 101 mmol/L Carbon Dioxide Level 27 mmol/L Anion Gap 8.0 mmol/L Blood Urea Nitrogen 26 mg/dl Creatinine 1.16 mg/dl Est Creatinine Clear Calc Drug Dose 76.4 ml/min Estimated GFR () 75.6 Estimated GFR (Non- 65.3 BUN/Creatinine Ratio 22.7 Random Glucose 137 mg/dl Estimated Average Glucose 140 mg/dl Hemoglobin A1c 6.5 % Calcium Level 8.3 mg/dl 25-Hydroxy Vitamin D Total 15.3 ng/ml (Alicia Wilson ., NEETU) Assessment and Plan 66 y/o male here for possible surgery after sustaining a mechanical fall while getting into the shower and fracturing left femur L distal femur fracture secondary to mechanical fall: - surgical and pain management per orthopedics - ASA held until after surgery - Vitamin D level low - start po vit. D supplement tomorrow - Continue Cipro 500 mg BID for suppression therapy for chronic hip infection DMII - A1c 6.5 - BSG ACHS and ISS HTN: Continue home antihypertensives Seizure disorder: Continue Depakote 250 mg QAM and 500 mg HS Anxiety, depression: Continue Lexapro 30 mg daily, Ativan 1 mg HS Gout: Continue Allopurinol 300 mg BID, Indomethacin 50 mg TID PRN Iron deficient anemia- baseline hgb 10-11- STABLE: Follow CBC Hypercholesterolemia: Continue Crestor 10 mg daily BPH: Continue Flomax 0.4 mg daily GERD: Protonix 40 mg daily- resume Prilosec at discharge DVT prophylaxis: managed by orthopedics (Alicia Wilson .NEETU) Attending Attestation: Pt seen/examined, chart reviewed, care plan d/w NEETU [place]. I agree w/ the albright components of her documentation except - on physical exam the affected leg is on the LEFT, not right I saw the patient post-op from his surgery. He was mildly agitated. In fact he was initially in restraints; these were removed during my visit. He denied any pain in any location. VSS no fever gen - dysmorphic appearing, intermittently snoring mouth - MM dry neck - no JVD heart - RRR lungs - CTA b/l abd - soft ext - left leg in immobilizer; pulses 2+ b/l A/P: 1. left femur fracture s/p ORIF 2. mild agitation - haldol IM or PO prn 3. seizure d/o - continue depakote as scheduled 4. snoring - likely DANNA - watch for CO2 retention post-op; low threshold for VBG if needed Hussain Sahu MD (Hussain Sahu MD)
--- NOTE | 2017-05-29 14:06 | History & Physical Bridge Note ---
H&P Re-Evaluation Bridge Note: I have examined the patient, reviewed the History & Physical and in the interval since the performance of the History & Physical I have noted the following changes of clinical significance: No changes noted
[2017-05-29] MEDS ORDERED: SUCCINYLCHOLINE CHLORIDE 20 MG/ML 10 ML VIAL IV ONE (14:08)
[2017-05-29] MEDS ORDERED: PHENYLEPHRINE HCL INJ 10 MG/ML VIAL ONE (14:08)
[2017-05-29] MEDS ORDERED: PROPOFOL IV EMULSION 10 MG/ML 20 ML VIAL IV ONE (14:08)
[2017-05-29] MEDS ORDERED: LIDOCAINE HCL 2% 2 ML VIAL (20MG/ML) ONE (14:08)
[2017-05-29] MEDS ORDERED: ONDANSETRON INJ 2 MG/ML 2 ML VIAL ONE ×2 (14:08→17:33)
[2017-05-29] MEDS ORDERED: GLYCOPYRROLATE INJ 0.2 MG/ML VIAL ONE (14:08)
[2017-05-29] MEDS ORDERED: EpHEDrine SULFATE INJ 50 MG/ML AMP ONE (14:08)
[2017-05-29] MEDS ORDERED: DEXAMETHASONE SOD INJ 4 MG/ML VIAL ONE (14:08)
[2017-05-29] MEDS ORDERED: NEOSTIGMINE METHYLSULFATE 5 MG/5 ML SYR ONE (14:08)
[2017-05-29] MEDS ORDERED: MIDAZOLAM HCL 1 MG/ML 2ML VIAL ONE ×2 (14:09→18:23)
[2017-05-29] MEDS ORDERED: FENTANYL CITRATE INJ 50 MCG/1 ML 2 ML VIAL ONE (14:09)
--- NOTE | 2017-05-29 14:21 | Orthopedic Progress Note ---
Orthopedic Progress Note Date of Service May 29, 2017. Subjective Reports: feeling well, Denies: complaints Additional Notes: Patient seen at bedside accompanied by family resting comfortably. No acute issues. Patient poor historian due to underlying medical diagnosis, majority of story obtained through family. Objective LLE NVSI +EHL/FHL/TA/GS SILT grossly, actively moves toes. Compartments soft NT , +2 DP pulse. Leg short and externally rotated. Date Time Temp Pulse Resp B/P (MAP) Pulse Ox O2 Delivery O2 Flow Rate FiO2 05/29/17 08:25 95 Room Air 05/29/17 08:16 36.4 68 18 129/81 (97) 95 Room Air 05/29/17 07:25 Room Air 05/28/17 23:45 Room Air 05/28/17 23:01 37.0 86 18 125/72 (89) 91 Room Air 05/28/17 16:50 Room Air 05/28/17 16:30 36.9 95 18 135/81 (99) 94 Room Air 05/28/17 16:19 91 16 152/96 95 05/28/17 14:24 94 18 142/86 95 Room Air 05/28/17 14:10 95 Room Air Laboratory Results 24 Hours: Test 05/29/17 05:26 Hematocrit 34.4 % Hemoglobin 11.4 g/dL Assessment & Plan Assessment: Left Distal periprosthetic femur fracture. 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 I had a long discussion with the patient's family regarding the risks and benefits, which include but are not limited to infection blood clots damage to surrounding nerves and vessels soft tissue or bone, leg length discrepancy, need for additional surgery, failure of the fixation and hardware, malunion, nonunion, amputation and . The patient's family collectively agreed to proceed with surgical fixation given the risks in the setting of chronically infected left hip which is being currently suppressed with antibiotics long-term and followed by Dr. Ewing [place] ALO
[2017-05-29] MEDS ORDERED: ROPIVACAINE 5MG/ML 30 ML 150 MG, BUPIVACAINE 0.5% MPF INJ 30 ML, EpINEphrine HCL INJ 0.... INFIL SCH ×8 (14:30)
[2017-05-29] MEDS ORDERED: BACITRACIN 50000 UNIT VIAL ONE (14:35)
[2017-05-29] MEDS ORDERED: ATROPINE SULFATE 0.1 MG/ML 5ML SYR IV PRN (14:45)
[2017-05-29] MEDS ORDERED: FENTANYL CITRATE INJ 50 MCG/1 ML 2 ML VIAL IV PRN (14:45)
[2017-05-29] MEDS ORDERED: EpHEDrine SULFATE INJ 50 MG/ML AMP IV PRN (14:45)
[2017-05-29] MEDS ORDERED: ONDANSETRON INJ 2 MG/ML 2 ML VIAL IV PRN ×2 (14:45→18:15)
[2017-05-29] MEDS ORDERED: PROMETHAZINE HCL INJ 6.25 MG in SODIUM CHLORIDE 0.9% 50ML 50 ML IV PRN (14:45)
[2017-05-29] MEDS ORDERED: HYDROmorphone INJ 1 MG/ML SYR IV PRN (14:45)
[2017-05-29] MEDS ORDERED: HYDROmorphone INJ 2 MG/ML SYR/VIAL ONE (15:20)
[2017-05-29] MEDS ORDERED: OXYCODONE HCL IR 5 MG TAB (IMMEDIATE RELEASE) PO PRN (18:15)
[2017-05-29] MEDS ORDERED: ACETAMINOPHEN 325 MG TAB PO PRN (18:15)
[2017-05-29] MEDS ORDERED: NALOXONE HCL 0.4 MG/1 ML VIAL/CARP IV PRN (18:15)
[2017-05-29] MEDS ORDERED: MoRPHine SULFATE 4 MG/ML 1 ML CARP\\VIAL IV PRN (18:15)
[2017-05-29] MEDS ORDERED: MIDAZOLAM HCL 1 MG/ML 2ML VIAL IV STA (18:23)
--- NOTE | 2017-05-29 18:33 | [facility] Post Operative Brief Note ---
Immediate Operative Summary Operative Date May 29, 2017. Pre-Operative Diagnosis Left distal femur fracture, periprosthetic Post-Operative Diagnosis Left distal femur fracture, periprosthetic Procedure(s) Performed Open Reduction Internal Fixation Left Distal Periprosthetic Femur Fracture Surgeon Dr. Copeland Message Clerk Surgeon(s) Carlos Meredith Estimated Blood Loss 450 ml Findings See dictated op note Fluids (cc crystalloids) 2000 Specimens None per surgeon Drains none Anesthesia General Complication(s) None Disposition Recovery Room / PACU
--- NOTE | 2017-05-29 19:03 | Anesthesiology Progress Note ---
Anesthesia Post Op Note Date & Time May 29, 2017 at 19:00 Vital Signs Pain Intensity: 0 Vital Signs Past 12 Hours Date Time Temp Pulse Resp B/P (MAP) Pulse Ox O2 Delivery O2 Flow Rate FiO2 05/29/17 18:57 102 16 94 05/29/17 18:57 104 16 05/29/17 18:56 112/92 05/29/17 18:52 99 17 91 05/29/17 18:52 101 17 05/29/17 18:52 36.3 100 17 112/92 (99) 95 Nasal Cannula 4 05/29/17 18:51 112/83 05/29/17 18:47 100 14 94 05/29/17 18:47 100 14 05/29/17 18:46 103 25 106/87 97 05/29/17 18:46 103 25 05/29/17 18:43 105/ 05/29/17 18:41 109 17 05/29/17 18:41 106 17 96 05/29/17 18:36 103 19 05/29/17 18:36 101 19 112/87 87 05/29/17 18:32 109/86 05/29/17 18:31 106 18 116/84 95 05/29/17 18:31 107 18 05/29/17 18:26 102 28 116/84 86 05/29/17 18:26 102 28 05/29/17 18:22 97/72 05/29/17 18:21 115 19 93 05/29/17 18:21 108 19 05/29/17 18:18 110/75 05/29/17 18:16 36.3 97 17 111/60 94 Oxymask 10 05/29/17 18:16 97 24 77/ 93 05/29/17 18:16 97 24 05/29/17 08:25 95 Room Air 05/29/17 08:16 36.4 68 18 129/81 (97) 95 Room Air 05/29/17 07:25 Room Air Notes Mental Status: alert / awake / arousable, participated in evaluation Pt Amnestic to Procedure: Yes Nausea / Vomiting: adequately controlled Pain: adequately controlled Airway Patency, RR, SpO2: stable & adequate BP & HR: stable & adequate Hydration State: stable & adequate Anesthetic Complications: no major complications apparent Pt with h/o mental retardation, needed soft restrained while in PACU due to pulling on sahu cath. 1mg of IV Versed was given to relieve agitation. Doing better now. VSS. Reaady for d/c to floor. Will need a sitter or continue soft restrained to avoid injury
--- NOTE | 2017-05-29 19:37 | DIAGNOSTIC IMAGING REPORT ---
LEFT FEMUR 3 VIEWS CLINICAL HISTORY: Postoperative examination. FINDINGS: AP, lateral, and frog-leg portable views of the left femur are compared to study dated 05/28/2017. The skeletal structures are osteopenic. There has been buttress plate fixation of a spiral fracture through the mid to distal femoral shaft with spiritism of near-anatomic alignment. Numerous cerclage wires surround the buttress plate. The orthopedic hardware appears intact. Left hip and knee arthroplasties are in place. Extensive bony overgrowth is again seen around the hip arthroplasty. The partially imaged left hemipelvis is grossly intact. Subcutaneous soft tissue edema is noted in the left thigh. Foci of subcutaneous gas and skin clips are expected postoperative findings. IMPRESSION: 1. Expected postoperative changes status post buttress plate fixation of a left femoral fracture as above. 2. No new fracture is seen. Electronically signed by: Delvis Olson M.D. 05/29/2017 7:36 PM Dictated Date/Time: 05/29/2017 7:34 PM
[2017-05-29] MEDS ORDERED: HALOPERIDOL 1 MG TAB PO PRN (20:30)
[2017-05-29] MEDS ORDERED: HALOPERIDOL LACTATE 5 MG/ML 1 ML VIAL IM PRN (20:30)
[2017-05-29] MEDS: LORAZEPAM 1 MG TAB PO SCH (20:40)
[2017-05-29] MEDS: ASPIRIN/ALUM/MAGNES/CAL CARB 325 MG TAB PO SCH (20:40)
[2017-05-29] MEDS: DOCUSATE SODIUM/SENNA 50/8.6MG TAB PO SCH (20:40)
--- NOTE | 2017-05-29 21:01 | Orthopedic Progress Note ---
Orthopedic Progress Note Date of Service May 29, 2017. Subjective Additional Notes: Patient seen in PACU, comfortable, no acute issues, pain well controlled. Objective LLE NVSI +EHL/FHL/TA/GS SILT grossly, CR< 2 seconds, +2 DP pulse, compartment soft NT, dressing CDI Date Time Temp Pulse Resp B/P (MAP) Pulse Ox O2 Delivery O2 Flow Rate FiO2 05/29/17 20:30 36.2 83 17 140/88 (105) 93 Nasal Cannula 4.0 05/29/17 19:30 36.9 109 18 112/100 (104) 94 Nasal Cannula 4.0 05/29/17 19:30 94 Nasal Cannula 4.0 05/29/17 19:30 94 Nasal Cannula 4.0 05/29/17 18:57 102 16 94 05/29/17 18:57 104 16 05/29/17 18:56 112/92 05/29/17 18:52 99 17 91 05/29/17 18:52 101 17 05/29/17 18:52 36.3 100 17 112/92 (99) 95 Nasal Cannula 4 05/29/17 18:51 112/83 05/29/17 18:47 100 14 94 05/29/17 18:47 100 14 05/29/17 18:46 103 25 106/87 97 05/29/17 18:46 103 25 05/29/17 18:43 105/ 05/29/17 18:41 109 17 05/29/17 18:41 106 17 96 05/29/17 18:36 103 19 05/29/17 18:36 101 19 112/87 87 05/29/17 18:32 109/86 05/29/17 18:31 106 18 116/84 95 05/29/17 18:31 107 18 05/29/17 18:26 102 28 116/84 86 05/29/17 18:26 102 28 05/29/17 18:22 97/72 05/29/17 18:21 115 19 93 05/29/17 18:21 108 19 05/29/17 18:18 110/75 05/29/17 18:16 36.3 97 17 111/60 94 Oxymask 10 05/29/17 18:16 97 24 77/ 93 05/29/17 18:16 97 24 05/29/17 08:25 95 Room Air 05/29/17 08:16 36.4 68 18 129/81 (97) 95 Room Air 05/29/17 07:25 Room Air 05/28/17 23:45 Room Air 05/28/17 23:01 37.0 86 18 125/72 (89) 91 Room Air Laboratory Results 24 Hours: Test 05/29/17 05:26 Hematocrit 34.4 % Hemoglobin 11.4 g/dL Assessment & Plan Assessment: s/p ORIF Left Distal periprosthetic femur fracture. 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
--- NOTE | 2017-05-29 21:38 | [facility] Operative Report ---
Operative Report Operative Date May 29, 2017. Pre-Operative Diagnosis Left distal femur fracture, periprosthetic Post-Operative Diagnosis Left distal femur fracture, periprosthetic Procedure(s) Performed Open Reduction Internal Fixation Left Distal Periprosthetic Femur Fracture Surgeon Dr. Copeland Customer Complaint Clerk Surgeon(s) Carlos Meredith Estimated Blood Loss 450 ml Findings see dictated op note Fluids 2000 Specimens None per surgeon Drains none Anesthesia General Complication(s) None Disposition Recovery Room / PACU Indications The patient is a 66-year-old male who presents after sustaining an injury to his left lower extremity after a fall. He has a significant past medical history which includes previous revision surgery of his left total hip and subsequent chronic infection which has been treated with suppressive antibiotics and followed by Dr. Ewing in [facility]. The patient is cognitively impaired and a poor historian however pleasant and was accompanied by his family members who provided a majority of the past medical history and story. I indicated the patient for open reduction internal fixation of the Left distal femur. I had a long discussion with the patient's family regarding the risks and benefits, which include but are not limited to infection blood clots damage to surrounding nerves and vessels soft tissue or bone, leg length discrepancy, need for additional surgery, failure of the fixation and hardware, malunion, nonunion, amputation and . The patient's family collectively agreed to proceed with surgical fixation given the risks, especially in the setting of a chronically infected left total hip arthroplasty. Informed consent was provided at this time. Description of Procedure Following induction of adequate general anesthesia, the patient's left leg was prepped and draped in usual sterile manner. An extended incision was made from the patient's previously made hip incision to the knee along the lateral aspect of the femur. Subcutaneous tissue was sharply dissected, electrocautery was used for hemostasis. Fascia was incised throughout the length of the wound and the vastus lateralis was swept from the posterior iliotibial band with blunt dissection. Subperiosteal dissection was carried out to expose the femoral fracture. After the fracture site was identified and cleaned of any blood clots and debris using a combination of rotation and longitudinal traction, adequate reduction of the long portion of the fracture was achieved. Fracture reduction and positioning was assessed under C-arm fluoroscopy. The fracture initially held provisionally using one 4.5 cortical screw, 38mm in legnth in a lag by technique fashion and two 1.7 cerclage cables. Next, a 12-hole distal femoral locking plate was obtained and it was placed about the lateral aspect of the femur and held using a [place] bone clamp. Adjustments in varus and valgus and flexion and extension were made, and some adequate reduction using indirect reduction techniques were performed. Adequate positioning both in the distal and proximal aspects as well as anterior and posterior were assessed utilizing C-arm fluoroscopy. The distal locking guide was placed in the anterior and distal screw hole and held provisionally using a K-wire. Proximal fixation was carried out with cerclage cables around the femoral component, femoral bone and distal femoral locking plate. Using the appropriate button, these were provisionally tensioned. A total of four cerclage cables were used with cerclage pins to hold the plate to the bone proximally and at the fracture site. The cables were placed provisionally and not clamped at this time. Next I turned my attention to the most distal shaft hole, placing a 4.5 cortical screw 56 mm in length which allowed for the plate to site flush on the bone which was verified under C-arm fluoroscopy. Next I turned my attention to the distal aspect of the plate and distal fixation was carried out using multiple distal femoral locking screws. A single 7.3 mm cannulated locking screw, 85 mm in length was placed, followed by four 5.0 cannulated locking screws, 25mm, 65mm, 75mm and 80mm in length. Finally I turned my attention back to the proximal locking plate and sequentially tightened each of the four 1.7 cerclage cables holding the plate to the bone. The wound was thoroughly irrigated with serile saline solution with bacitracin. Fascia was closed using #1 Vicryl, subcutaneous tissue was closed using 2-0 Vicryl, and skin was closed with luciano. Sterile dressing of xyeroform, 4x4 ABDs, webril and rani wrap was applied. Patient was placed in a knee immobilizer at this time. Patient was extubated while in the OR and was transported to PACU in stable condition. The patient tolerated the procedure well. Due to the complex nature of the procedure, the entire surgery was performed with the operational assistance of Carlos Bean PA-C. The assistant professor of forestry, under direct supervision, was involved in the actual performance of all aspects of the surgical procedure including hemostasis, tissue retraction and incision, instrument management, patient positioning, and wound closure. I attest to the content of the Intraoperative Record and any orders documented therein. Any exceptions are noted below.
[2017-05-29] MEDS: CLINDAMYCIN IV 600 MG in DEXTROSE 5% 50ML 50 ML IV SCH (21:41)
[2017-05-29] MEDS ORDERED: NURSING DECISION MEDICATION ORDER SCH (23:15)
[2017-05-30] VITALS (7 sets, daily range): BP systolic 115–138; BP diastolic 72–82; PULSE 74–95; TEMP 36.6–36.9; O2SAT 90–96
[2017-05-30] MEDS: SODIUM CHLORIDE 0.9% 1000ML 1,000 ML IV SCH ×2 (05:10→16:48)
[2017-05-30] MEDS: CLINDAMYCIN IV 600 MG in DEXTROSE 5% 50ML 50 ML IV SCH (05:30)
[2017-05-30] MEDS: ACETAMINOPHEN 500 MG TAB PO SCH ×3 (05:30→21:02)
[2017-05-30 07:10] LABS: HEMATOCRIT 25.9 % (42-52); MEAN CELL VOLUME 81.4 fL (80-100); MEAN CORPUSCULAR HEMOGLOBIN 26.7 pg (25-34); MEAN CORPUSCULAR HGB CONC 32.8 g/dl (32-36); MEAN PLATELET VOLUME 9.3 fL (7.4-10.4); PLATELET COUNT 239 K/uL (130-400); RED BLOOD COUNT 3.18 M/uL (4.7-6.1); WHITE BLOOD COUNT 13.18 K/uL (4.8-10.8)
[2017-05-30 07:31] LABS: CALCIUM 7.9 mg/dl (8.5-10.1); CREATININE 1.34 mg/dl (0.60-1.40); POTASSIUM 4.3 mmol/L (3.5-5.1)
--- NOTE | 2017-05-30 09:13 | Orthopedic Progress Note ---
Orthopedic Progress Note Date of Service May 30, 2017. Subjective Post OP Day: 1 Additional Notes: difficult to communicate with, he is currently denying pain, chest pain or SOB Objective N/V intact, splint C/D/I, capillary refill less than 2 sec., dressing C/D/I, A& O x3, toes mobile Date Time Temp Pulse Resp B/P (MAP) Pulse Ox O2 Delivery O2 Flow Rate FiO2 05/30/17 07:45 92 05/30/17 07:23 36.6 78 138/82 (100) 92 Nasal Cannula 2.0 05/30/17 03:47 36.9 95 18 115/75 (88) 93 Nasal Cannula 3.0 05/30/17 00:35 92 Nasal Cannula 3.0 05/30/17 00:35 Nasal Cannula 3.0 92 05/29/17 23:02 36.3 83 17 104/69 (81) 96 Nasal Cannula 4.0 05/29/17 22:00 36.4 87 16 118/70 (86) 96 Nasal Cannula 4.0 05/29/17 21:00 36.5 93 17 123/78 (93) 91 Nasal Cannula 4.0 05/29/17 20:30 36.2 83 17 140/88 (105) 93 Nasal Cannula 4.0 05/29/17 19:30 36.9 109 18 112/100 (104) 94 Nasal Cannula 4.0 05/29/17 19:30 94 Nasal Cannula 4.0 05/29/17 19:30 94 Nasal Cannula 4.0 05/29/17 18:57 102 16 94 05/29/17 18:57 104 16 05/29/17 18:56 112/92 05/29/17 18:52 99 17 91 05/29/17 18:52 101 17 05/29/17 18:52 36.3 100 17 112/92 (99) 95 Nasal Cannula 4 05/29/17 18:51 112/83 05/29/17 18:47 100 14 94 05/29/17 18:47 100 14 05/29/17 18:46 103 25 106/87 97 05/29/17 18:46 103 25 05/29/17 18:43 105/ 05/29/17 18:41 109 17 05/29/17 18:41 106 17 96 05/29/17 18:36 103 19 05/29/17 18:36 101 19 112/87 87 05/29/17 18:32 109/86 05/29/17 18:31 106 18 116/84 95 05/29/17 18:31 107 18 05/29/17 18:26 102 28 116/84 86 05/29/17 18:26 102 28 05/29/17 18:22 97/72 05/29/17 18:21 115 19 93 05/29/17 18:21 108 19 05/29/17 18:18 110/75 05/29/17 18:16 36.3 97 17 111/60 94 Oxymask 10 05/29/17 18:16 97 24 77/ 93 05/29/17 18:16 97 24 Laboratory Results 24 Hours: Test 05/30/17 06:29 Hematocrit 25.9 % Hemoglobin 8.5 g/dL Assessment & Plan Assessment: Left Distal periprosthetic femur fracture. 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
[2017-05-30] MEDS: INSULIN ASPART 100 UNITS/ML 3 ML PEN SC SCH ×4 (09:51→20:36)
[2017-05-30] MEDS: PANTOprazole SOD 40 MG TAB PO SCH (09:52)
[2017-05-30] MEDS: ESCITALOPRAM OXALATE 10 MG TAB PO SCH (09:52)
[2017-05-30] MEDS: TAMSULOSIN HCL 0.4 MG CAP PO SCH (09:53)
[2017-05-30] MEDS: ASPIRIN/ALUM/MAGNES/CAL CARB 325 MG TAB PO SCH ×2 (09:53→21:00)
[2017-05-30] MEDS: DIVALPROEX SODIUM 250 MG DELAY REL TAB PO SCH ×2 (09:53→21:00)
[2017-05-30] MEDS: FENOFIBRATE 48 MG TAB PO SCH (09:54)
[2017-05-30] MEDS: CHOLECALCIFEROL 1000 INTER.UNIT TAB PO SCH (09:54)
[2017-05-30] MEDS: DOCUSATE SODIUM 100 MG CAP PO SCH ×2 (09:56→21:01)
[2017-05-30] MEDS: ESCITALOPRAM OXALATE 20 MG TAB PO SCH (09:56)
[2017-05-30] MEDS: AMLODIPINE BESYLATE 5 MG TAB PO SCH (09:57)
[2017-05-30] MEDS: ROSUVASTATIN CALCIUM 10 MG TAB PO SCH (09:57)
[2017-05-30] MEDS: ALLOPURINOL 300 MG TAB PO SCH ×2 (09:58→21:01)
[2017-05-30] MEDS: CIPROFLOXACIN 250 MG TAB PO SCH ×2 (09:58→21:00)
--- NOTE | 2017-05-30 12:03 | Hospitalist Progress Note ---
Hospitalist Progress Note Date of Service May 30, 2017. (Alicia Wilson .NEETU) Subjective Pt evaluation today including: conversation w/ patient, physical exam, chart review, lab review, review of inpatient medication list Voiding: sahu catheter in place Mr. Posey is doing well this morning, he has no complaints though his sister who is bed side says that he does not necessarily complain when he is in pain. He appears comfortable. Han wrap in place over surgical site. ROS Constitutional: no chills, aches, sweats or fever Respiratory: no sob,cough, sputum, or wheezing Cardiac: no chest pain, palpitations, edema, orthopnea or lightheadedness GI: no abdominal pain, nausea, vomiting, diarrhea or constipation : no dysuria or hesitancy Extremities: no joint pain or weakness Skin: no rash All Other Systems: Reviewed and Negative (Alicia Wilson CRNP) Medications Medications (Trade) Dose Ordered Sig/Miranda Route Start Time Stop Time Status Last Admin Dose Admin Cholecalciferol (Vitamin D Tab) 1,000 inter.unit QAM PO 05/30/17 09:00 06/29/17 08:59 05/30/17 09:54 1,000 INTER.UNIT Ropivacaine 150 mg/Bupivacaine HCl 30 ml/ Epinephrine HCl 0.15 mg/Ketorolac Tromethamine 30 mg/Dexamethasone Sodium Phosphate 4 mg/Ketamine HCl 10 mg/Clonidine 100 mcg/Sodium Chloride 93.35 ml @ 0 mls/hr TODAY@1430 INFIL 05/29/17 14:30 05/29/17 14:31 DC 05/29/17 17:24 93.5 MLS/HR Bacitracin (Bacitracin Inj) 50,000 units STK-MED ONCE .ROUTE 05/29/17 14:35 05/29/17 14:36 DC 05/29/17 17:10 50,000 UNITS Sodium Chloride 1,000 ml @ 85 mls/hr [id number] IV 05/29/17 18:30 06/28/17 18:29 05/30/17 05:10 85 MLS/HR Clindamycin Phosphate 600 mg/ Dextrose 54 ml @ 100 mls/hr Q8H IV 05/29/17 22:00 05/30/17 06:33 DC 05/30/17 05:30 100 MLS/HR Aspirin/Aluminum/ Magnesium/Ca Carb (Ascriptin Tab) 325 mg BID PO 05/29/17 21:00 06/28/17 20:59 05/30/17 09:53 325 MG Senna/Docusate Sodium (Senokot S Tab) 2 tab HS PO 05/29/17 21:00 06/28/17 20:59 05/29/17 20:40 2 TAB Insulin Aspart (novoLOG ASPART) SLIDING SCALE G... ACHS SC 05/30/17 08:00 06/29/17 07:59 05/30/17 09:51 7 UNITS (Alicia Wilson CRNP) Objective Vital Signs Date Time Temp Pulse Resp B/P (MAP) Pulse Ox O2 Delivery O2 Flow Rate FiO2 05/30/17 07:45 92 05/30/17 07:23 36.6 78 138/82 (100) 92 Nasal Cannula 2.0 05/30/17 03:47 36.9 95 18 115/75 (88) 93 Nasal Cannula 3.0 05/30/17 00:35 92 Nasal Cannula 3.0 05/30/17 00:35 Nasal Cannula 3.0 92 05/29/17 23:02 36.3 83 17 104/69 (81) 96 Nasal Cannula 4.0 05/29/17 22:00 36.4 87 16 118/70 (86) 96 Nasal Cannula 4.0 05/29/17 21:00 36.5 93 17 123/78 (93) 91 Nasal Cannula 4.0 05/29/17 20:30 36.2 83 17 140/88 (105) 93 Nasal Cannula 4.0 05/29/17 19:30 36.9 109 18 112/100 (104) 94 Nasal Cannula 4.0 05/29/17 19:30 94 Nasal Cannula 4.0 05/29/17 19:30 94 Nasal Cannula 4.0 05/29/17 18:57 102 16 94 05/29/17 18:57 104 16 05/29/17 18:56 112/92 05/29/17 18:52 99 17 91 05/29/17 18:52 101 17 05/29/17 18:52 36.3 100 17 112/92 (99) 95 Nasal Cannula 4 05/29/17 18:51 112/83 05/29/17 18:47 100 14 94 05/29/17 18:47 100 14 05/29/17 18:46 103 25 106/87 97 05/29/17 18:46 103 25 05/29/17 18:43 105/ 05/29/17 18:41 109 17 05/29/17 18:41 106 17 96 05/29/17 18:36 103 19 05/29/17 18:36 101 19 112/87 87 05/29/17 18:32 109/86 05/29/17 18:31 106 18 116/84 95 05/29/17 18:31 107 18 05/29/17 18:26 102 28 116/84 86 05/29/17 18:26 102 28 05/29/17 18:22 97/72 05/29/17 18:21 115 19 93 05/29/17 18:21 108 19 05/29/17 18:18 110/75 05/29/17 18:16 36.3 97 17 111/60 94 Oxymask 10 05/29/17 18:16 97 24 77/ 93 05/29/17 18:16 97 24 (Alicia Wilson CRNP) Physical Exam Notes: General: no distress Eyes: normal inspection, PERLL Respiratory: chest non tender, clear to auscultation, normal breath sounds, no respiratory distress, no accessory muscle use Cardiac: regular rate and rhythm, no rub or gallop, no murmur, no edema, no jvd GI/: active bowel sounds, no abd pain or tenderness, soft, non distended Extremities: normal range of motion, normal strength, non tender, right knee in Han wrap Neuro/Psych: alert and oriented x 3, normal mood and affect Skin: normal color, dry (Alicia Wilson CRNP) Laboratory Results Last 24 Hours Test 05/29/17 12:35 05/29/17 20:38 05/30/17 06:29 05/30/17 08:07 Bedside Glucose 132 mg/dl 212 mg/dl 154 mg/dl White Blood Count 13.18 K/uL Red Blood Count 3.18 M/uL Hemoglobin 8.5 g/dL Hematocrit 25.9 % Mean Corpuscular Volume 81.4 fL Mean Corpuscular Hemoglobin 26.7 pg Mean Corpuscular Hemoglobin Concent 32.8 g/dl RDW Standard Deviation 45.9 fL RDW Coefficient of Variation 15.3 % Platelet Count 239 K/uL Mean Platelet Volume 9.3 fL Sodium Level 135 mmol/L Potassium Level 4.3 mmol/L Chloride Level 102 mmol/L Carbon Dioxide Level 26 mmol/L Anion Gap 7.0 mmol/L Blood Urea Nitrogen 32 mg/dl Creatinine 1.34 mg/dl Est Creatinine Clear Calc Drug Dose 66.1 ml/min Estimated GFR () 63.5 Estimated GFR (Non- 54.8 BUN/Creatinine Ratio 24.0 Random Glucose 158 mg/dl Calcium Level 7.9 mg/dl (Alicia Wilson CRNP) Assessment and Plan 66 y/o male here for ORIF after sustaining a mechanical fall while getting into the shower and fracturing left femur L distal femur fracture secondary to mechanical fall, s/p ORIF 05/29 - surgical and pain management per orthopedics - ASA restarted - Vitamin D level low - vitamin D supplement started 05/29 - Continue home dose Cipro 500 mg BID for suppression therapy for chronic hip infection DMII - A1c 6.5 - BSG ACHS and ISS - bsg stable - DM II diet HTN: Continue home antihypertensives Seizure disorder: Continue Depakote 250 mg QAM and 500 mg HS Anxiety, depression: Continue Lexapro 30 mg daily, Ativan 1 mg HS Gout: Continue Allopurinol 300 mg BID, Indomethacin 50 mg TID PRN Iron deficient anemia- baseline hgb 10-11- STABLE: Follow CBC Hypercholesterolemia: Continue Crestor 10 mg daily BPH: Continue Flomax 0.4 mg daily GERD: Protonix 40 mg daily- resume Prilosec at discharge DVT prophylaxis: ASA/Teds per ortho (Alicia Wilson CRNP) i personally examined pt and verified all albright points [place] ANDA no complaints, joking with family vitals noted nad breathing unlabored no pallor or icterus femur fracture per ortho, medically stable otherwise as above (Ramses Brar D.O.)
[2017-05-30] MEDS ORDERED: HALOPERIDOL 1 MG TAB PO PRN (14:30)
[2017-05-30] MEDS: LORAZEPAM 1 MG TAB PO SCH (21:01)
[2017-05-30] MEDS: DOCUSATE SODIUM/SENNA 50/8.6MG TAB PO SCH (21:01)
[2017-05-31] VITALS (15 sets, daily range): BP systolic 116–138; BP diastolic 50–71; PULSE 68–95; TEMP 36.7–38.6; O2SAT 88–97
[2017-05-31] MEDS: SODIUM CHLORIDE 0.9% 1000ML 1,000 ML IV SCH ×2 (04:03→15:39)
[2017-05-31 05:49] LABS: HEMATOCRIT 22.1 % (42-52); MEAN CELL VOLUME 83.1 fL (80-100); MEAN CORPUSCULAR HEMOGLOBIN 27.1 pg (25-34); MEAN CORPUSCULAR HGB CONC 32.6 g/dl (32-36); MEAN PLATELET VOLUME 9.4 fL (7.4-10.4); PLATELET COUNT 210 K/uL (130-400); RED BLOOD COUNT 2.66 M/uL (4.7-6.1); WHITE BLOOD COUNT 7.65 K/uL (4.8-10.8)
[2017-05-31] MEDS: POLYETHYLENE (MIRALAX) 17 GM PACK PO SCH ×4 (06:09→23:57)
[2017-05-31] MEDS: ACETAMINOPHEN 500 MG TAB PO SCH ×3 (06:10→21:00)
[2017-05-31 06:15] LABS: BUN/CREATININE RATIO 28.6 (10-20); CALCIUM 7.6 mg/dl (8.5-10.1); CREATININE 1.04 mg/dl (0.60-1.40); POTASSIUM 3.8 mmol/L (3.5-5.1)
--- NOTE | 2017-05-31 07:31 | Orthopedic Progress Note ---
Orthopedic Progress Note Date of Service May 31, 2017. Subjective Post OP Day: 2 Reports: feeling well, pain controlled w PO medications, Denies: complaints, chest pain, SOB, nausea / vomiting, light headedness, calf pain Objective calves soft nontender, dressing C/D/I, A&O x3, toes mobile in knee immobilizer, dressing clean and dry, no drainage. Date Time Temp Pulse Resp B/P (MAP) Pulse Ox O2 Delivery O2 Flow Rate FiO2 05/31/17 07:22 36.7 68 21 138/66 (90) 92 Nasal Cannula 2.0 05/31/17 00:45 92 Nasal Cannula 2.0 05/31/17 00:25 Nasal Cannula 2.0 05/30/17 23:04 36.7 74 18 122/72 (89) 90 Room Air 05/30/17 18:34 36.8 75 17 131/73 (92) 96 Nasal Cannula 2.5 05/30/17 15:30 Nasal Cannula 2.0 05/30/17 15:06 36.7 82 17 122/76 (91) 95 Nasal Cannula 2.5 05/30/17 07:45 92 Laboratory Results 24 Hours: Test 05/31/17 05:23 Hematocrit 22.1 % Hemoglobin 7.2 g/dL Assessment & Plan Assessment: Left Distal periprosthetic femur fracture. 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 Ewing, [facility]- They do not feel they could meet Pt's needs at this time and would not be able to accept Pt. Allen Dumont. They are reviewing referral. Confirmed that Pt will be a [facility] and will need state approval prior to transfer. Awaiting to hear from Katie huang. Case Management will follow.
[2017-05-31] MEDS: INSULIN ASPART 100 UNITS/ML 3 ML PEN SC SCH ×4 (08:54→21:08)
[2017-05-31] MEDS: ASPIRIN/ALUM/MAGNES/CAL CARB 325 MG TAB PO SCH ×2 (08:57→20:59)
[2017-05-31] MEDS: CIPROFLOXACIN 250 MG TAB PO SCH ×2 (08:58→21:00)
[2017-05-31] MEDS: ROSUVASTATIN CALCIUM 10 MG TAB PO SCH (08:58)
[2017-05-31] MEDS: DIVALPROEX SODIUM 250 MG DELAY REL TAB PO SCH ×2 (08:58→20:59)
[2017-05-31] MEDS: DOCUSATE SODIUM 100 MG CAP PO SCH ×2 (08:58→21:01)
[2017-05-31] MEDS: ESCITALOPRAM OXALATE 20 MG TAB PO SCH (08:59)
[2017-05-31] MEDS: TAMSULOSIN HCL 0.4 MG CAP PO SCH (08:59)
[2017-05-31] MEDS: ESCITALOPRAM OXALATE 10 MG TAB PO SCH (08:59)
[2017-05-31] MEDS: FENOFIBRATE 48 MG TAB PO SCH (09:00)
[2017-05-31] MEDS: AMLODIPINE BESYLATE 5 MG TAB PO SCH (09:00)
[2017-05-31] MEDS: CHOLECALCIFEROL 1000 INTER.UNIT TAB PO SCH (09:00)
[2017-05-31] MEDS: PANTOprazole SOD 40 MG TAB PO SCH (09:00)
[2017-05-31] MEDS: ALLOPURINOL 300 MG TAB PO SCH ×2 (09:01→20:59)
[2017-05-31 09:48] LABS: HEMATOCRIT 22.1 % (42-52)
[2017-05-31 16:01] LABS: HEMATOCRIT 21.5 % (42-52)
--- NOTE | 2017-05-31 16:18 | Hospitalist Progress Note ---
Hospitalist Progress Note Date of Service May 31, 2017. (Alicia Wilson CRNP) Subjective Pt evaluation today including: conversation w/ patient, conversation w/ family , physical exam, chart review, lab review, review of inpatient medication list Mr. Posey is doing well this morning though he does have some pain at the site of his surgery. He is eating well and otherwise has no complaints. He does not have any bowel movements recorded since admission. ROS Constitutional: no chills, aches, sweats or fever Respiratory: no sob,cough, sputum, or wheezing Cardiac: no chest pain, palpitations, edema, orthopnea or lightheadedness GI: no abdominal pain, nausea, vomiting, diarrhea or constipation : no dysuria or hesitancy Extremities: see HPI Skin: no rash All Other Systems: Reviewed and Negative (Alicia Wilson CRNP) Medications Medications Administered Medications (Trade) Dose Ordered Sig/Miranda Route Start Time Stop Time Status Last Admin Dose Admin Oxycodone/ Acetaminophen (Percocet 5-325mg Tab) 1 tab ONE ONCE PO 05/28/17 12:30 05/28/17 12:31 DC 05/28/17 12:34 1 TAB Allopurinol (Zyloprim Tab) 300 mg BID PO 05/28/17 21:00 06/27/17 20:59 05/31/17 09:01 300 MG Amlodipine Besylate (Norvasc Tab) 5 mg DAILY PO 05/29/17 09:00 06/28/17 08:59 05/31/17 09:00 5 MG Divalproex Sodium (Depakote Delay Rel Tab) 250 mg QAM PO 05/29/17 09:00 06/28/17 08:59 05/31/17 08:58 250 MG Divalproex Sodium (Depakote Delay Rel Tab) 500 mg HS PO 05/28/17 21:00 06/27/17 20:59 05/30/17 21:00 500 MG Escitalopram Oxalate (Lexapro Tab) 10 mg DAILY PO 05/29/17 09:00 06/28/17 08:59 05/31/17 08:59 10 MG Escitalopram Oxalate (Lexapro Tab) 20 mg DAILY PO 05/29/17 09:00 06/28/17 08:59 05/31/17 08:59 20 MG Fenofibrate (Tricor Tab) 48 mg DAILY PO 05/28/17 18:00 06/27/17 17:59 05/31/17 09:00 48 MG Lorazepam (Ativan Tab) 1 mg HS PO 05/28/17 21:00 06/27/17 20:59 05/30/17 21:01 1 MG Rosuvastatin Calcium (Crestor Tab) 10 mg DAILY PO 05/28/17 18:00 06/27/17 17:59 05/31/17 08:58 10 MG Tamsulosin HCl (Flomax Cap) 0.4 mg DAILY PO 05/29/17 09:00 06/28/17 08:59 05/31/17 08:59 0.4 MG Clindamycin Phosphate 900 mg/ Dextrose 106 ml @ 100 mls/hr TODAY@0600 IV 05/29/17 06:00 05/29/17 18:00 DC 05/29/17 14:20 100 MLS/HR Docusate Sodium (coLACE CAP) 100 mg BID PO 05/28/17 21:00 06/27/17 20:59 05/31/17 08:58 100 MG Pantoprazole Sodium (Protonix Tab) 40 mg QAM PO 05/29/17 09:00 06/28/17 08:59 05/31/17 09:00 40 MG Oxycodone HCl (Roxicodone Immediate Rel Tab) `1-2 tabs for pain 1 tab ... Q4HWA PRN PO 05/28/17 15:15 05/29/17 18:38 DC 05/28/17 17:14 5 MG Acetaminophen (Tylenol Tab) 1,000 mg Q8 PO 05/28/17 22:00 06/27/17 21:59 05/31/17 13:38 1,000 MG Ciprofloxacin (Ciprofloxacin Tab) 500 mg BID PO 05/28/17 21:00 06/27/17 20:59 05/31/17 08:58 500 MG Sodium Chloride 1,000 ml @ 75 mls/hr [id number] IV 05/28/17 18:15 05/29/17 19:50 DC 05/29/17 08:23 75 MLS/HR Insulin Aspart (novoLOG ASPART) SLIDING SCALE G... Q6 SC 05/29/17 06:00 05/29/17 23:16 DC 05/29/17 20:49 2 UNITS Cholecalciferol (Vitamin D Tab) 1,000 inter.unit QAM PO 05/30/17 09:00 06/29/17 08:59 05/31/17 09:00 1,000 INTER.UNIT Ropivacaine 150 mg/Bupivacaine HCl 30 ml/ Epinephrine HCl 0.15 mg/Ketorolac Tromethamine 30 mg/Dexamethasone Sodium Phosphate 4 mg/Ketamine HCl 10 mg/Clonidine 100 mcg/Sodium Chloride 93.35 ml @ 0 mls/hr TODAY@1430 INFIL 05/29/17 14:30 05/29/17 14:31 DC 05/29/17 17:24 93.5 MLS/HR Bacitracin (Bacitracin Inj) 50,000 units STK-MED ONCE .ROUTE 05/29/17 14:35 05/29/17 14:36 DC 05/29/17 17:10 50,000 UNITS Sodium Chloride 1,000 ml @ 85 mls/hr [id number] IV 05/29/17 18:30 06/28/17 18:29 05/31/17 04:03 85 MLS/HR Clindamycin Phosphate 600 mg/ Dextrose 54 ml @ 100 mls/hr Q8H IV 05/29/17 22:00 05/30/17 06:33 DC 05/30/17 05:30 100 MLS/HR Aspirin/Aluminum/ Magnesium/Ca Carb (Ascriptin Tab) 325 mg BID PO 05/29/17 21:00 06/28/17 20:59 05/31/17 08:57 325 MG Senna/Docusate Sodium (Senokot S Tab) 2 tab HS PO 05/29/17 21:00 06/28/17 20:59 05/30/17 21:01 2 TAB Polyethylene (Miralax Powder Packet) 17 gm Q6 PO 05/31/17 06:00 06/30/17 05:59 05/31/17 12:47 17 GM Insulin Aspart (novoLOG ASPART) SLIDING SCALE G... ACHS SC 05/30/17 08:00 06/29/17 07:59 05/31/17 12:45 7 UNITS (Alicia Wilson CRNP) Objective Vital Signs Date Time Temp Pulse Resp B/P (MAP) Pulse Ox O2 Delivery O2 Flow Rate FiO2 05/31/17 07:22 36.7 68 21 138/66 (90) 92 Nasal Cannula 2.0 05/31/17 07:15 Nasal Cannula 2.0 05/31/17 00:45 92 Nasal Cannula 2.0 05/31/17 00:25 Nasal Cannula 2.0 05/30/17 23:04 36.7 74 18 122/72 (89) 90 Room Air 05/30/17 18:34 36.8 75 17 131/73 (92) 96 Nasal Cannula 2.5 05/30/17 15:30 Nasal Cannula 2.0 05/30/17 15:06 36.7 82 17 122/76 (91) 95 Nasal Cannula 2.5 (Alicia Wilson CRNP) Physical Exam Notes: General: no distress Eyes: normal inspection, PERLL Respiratory: chest non tender, clear to auscultation, normal breath sounds, no respiratory distress, no accessory muscle use Cardiac: regular rate and rhythm, no rub or gallop, no murmur, no edema, no jvd GI/: active bowel sounds, no abd pain or tenderness, soft, non distended Extremities: normal range of motion, normal strength, non tender, rani wrap and immobilizer in place left leg Neuro/Psych: alert and oriented x 3, normal mood and affect Skin: normal color, dry (Alicia Wilson CRNP) Laboratory Results Last 24 Hours Test 05/30/17 17:14 05/30/17 20:35 05/31/17 05:23 05/31/17 08:18 Bedside Glucose 202 mg/dl 140 mg/dl 137 mg/dl White Blood Count 7.65 K/uL Red Blood Count 2.66 M/uL Hemoglobin 7.2 g/dL Hematocrit 22.1 % Mean Corpuscular Volume 83.1 fL Mean Corpuscular Hemoglobin 27.1 pg Mean Corpuscular Hemoglobin Concent 32.6 g/dl RDW Standard Deviation 46.9 fL RDW Coefficient of Variation 15.5 % Platelet Count 210 K/uL Mean Platelet Volume 9.4 fL Sodium Level 136 mmol/L Potassium Level 3.8 mmol/L Chloride Level 104 mmol/L Carbon Dioxide Level 27 mmol/L Anion Gap 5.0 mmol/L Blood Urea Nitrogen 30 mg/dl Creatinine 1.04 mg/dl Est Creatinine Clear Calc Drug Dose 85.2 ml/min Estimated GFR () 86.3 Estimated GFR (Non- 74.5 BUN/Creatinine Ratio 28.6 Random Glucose 129 mg/dl Calcium Level 7.6 mg/dl Test 05/31/17 09:41 05/31/17 12:12 Hemoglobin 7.1 g/dL Hematocrit 22.1 % Bedside Glucose 137 mg/dl (Alicia Wilson CRNP) Assessment and Plan 66 y/o male here for ORIF after sustaining a mechanical fall while getting into the shower and fracturing left femur L distal femur fracture secondary to mechanical fall, s/p ORIF 05/29 - surgical and pain management per orthopedics - ASA restarted - Vitamin D level low - vitamin D supplement started 05/29 - Continue home dose Cipro 500 mg BID for suppression therapy for chronic hip infection - prn miralax administered for constipation Post surgical anemia - 2 units prbc - cbc in am DMII - stable - A1c 6.5 - BSG ACHS and ISS - bsg stable - continue DM II diet HTN: Continue home antihypertensives Seizure disorder: Continue Depakote 250 mg QAM and 500 mg HS Anxiety, depression: Continue Lexapro 30 mg daily, Ativan 1 mg HS Gout: Continue Allopurinol 300 mg BID, Indomethacin 50 mg TID PRN Iron deficient anemia- baseline hgb -- STABLE: Follow CBC Hypercholesterolemia: Continue Crestor 10 mg daily BPH: Continue Flomax 0.4 mg daily GERD: Protonix 40 mg daily- resume Prilosec at discharge DVT prophylaxis: ASA/Teds per ortho (Alicia Wilson CRNP) i personally examined pt and verified all albright points w [place] ANDA feeling ok no new complaints, but Hgb has gone down. family present - updated. agree w transfusion vitals noted nad breathing unlabored no pallor or icterus acute blood loss anemia - related to fracture - hemodynamically stable but now has continued to trend down to where he requires transfusion awaiting rehab placement, otherwise as above (Ramses Brar D.O.)
[2017-05-31] MEDS: LORAZEPAM 1 MG TAB PO SCH (20:58)
[2017-05-31] MEDS: DOCUSATE SODIUM/SENNA 50/8.6MG TAB PO SCH (21:01)
[2017-06-01 00:17] VITALS: BP 127/68; PULSE 75; TEMP 36.6; O2SAT 91
[2017-06-01 01:14] VITALS: BP 116/66; PULSE 74; TEMP 36.6; O2SAT 92
[2017-06-01] MEDS: ACETAMINOPHEN 500 MG TAB PO SCH ×3 (05:44→21:09)
[2017-06-01] MEDS: POLYETHYLENE (MIRALAX) 17 GM PACK PO SCH ×4 (05:44→23:37)
[2017-06-01 06:34] LABS: BASO % 0.1 %; BASO ABS # 0.01 K/uL (0-0.2); EOS % 3.4 %; HEMATOCRIT 25.6 % (42-52); IG% 0.3 %; LYMPH % 15.8 %; LYMPH ABS # 1.16 K/uL (1.2-3.4); MEAN CELL VOLUME 82.8 fL (80-100); MEAN CORPUSCULAR HEMOGLOBIN 27.5 pg (25-34); MEAN CORPUSCULAR HGB CONC 33.2 g/dl (32-36); MEAN PLATELET VOLUME 9.4 fL (7.4-10.4); MONO % 12.6 %; NEUT % 67.8 %; PLATELET COUNT 223 K/uL (130-400); RED BLOOD COUNT 3.09 M/uL (4.7-6.1); WHITE BLOOD COUNT 7.32 K/uL (4.8-10.8)
[2017-06-01 07:06] LABS: COMPLETE YES
[2017-06-01 07:24] LABS: BUN/CREATININE RATIO 22.7 (10-20); CALCIUM 8.3 mg/dl (8.5-10.1); CREATININE 0.89 mg/dl (0.60-1.40)
[2017-06-01 07:30] VITALS: BP 124/72; PULSE 72; TEMP 36.6; O2SAT 97
--- NOTE | 2017-06-01 08:58 | Orthopedic Progress Note ---
Orthopedic Progress Note Date of Service Jun 01, 2017. Subjective Post OP Day: 3 Reports: feeling well Objective calves soft nontender, N/V intact, incision C/D/I, toes mobile Date Time Temp Pulse Resp B/P (MAP) Pulse Ox O2 Delivery O2 Flow Rate FiO2 06/01/17 07:30 36.6 72 16 124/72 (89) 97 Room Air 06/01/17 07:15 Ambu-Bag 2.0 06/01/17 01:14 36.6 74 18 116/66 92 2.0 06/01/17 00:17 36.6 75 18 127/68 91 2.0 05/31/17 23:55 Nasal Cannula 2.0 05/31/17 23:50 37.3 79 16 124/68 91 2.0 05/31/17 23:18 91 2.0 05/31/17 23:16 36.9 79 20 123/65 88 0.0 05/31/17 23:02 36.8 83 18 137/66 89 05/31/17 22:44 37.2 82 18 127/63 88 05/31/17 22:00 37.5 87 16 127/63 93 05/31/17 21:05 37.3 86 18 135/50 94 05/31/17 20:37 37.8 88 18 131/64 97 05/31/17 20:12 37.1 05/31/17 20:08 38.6 95 18 127/65 96 05/31/17 19:54 37.2 87 18 130/67 90 05/31/17 19:29 37.1 90 18 124/71 92 05/31/17 15:40 Room Air 05/31/17 14:57 36.8 81 16 116/63 (80) 95 Room Air Laboratory Results 24 Hours: Test 05/31/17 09:41 05/31/17 14:47 06/01/17 05:56 Hematocrit 22.1 % 21.5 % 25.6 % Hemoglobin 7.1 g/dL 7.0 g/dL 8.5 g/dL White Blood Count 7.32 K/uL Red Blood Count 3.09 M/uL Mean Corpuscular Volume 82.8 fL Mean Corpuscular Hemoglobin 27.5 pg Mean Corpuscular Hemoglobin Concent 33.2 g/dl Platelet Count 223 K/uL Mean Platelet Volume 9.4 fL Neutrophils (%) (Auto) 67.8 % Lymphocytes (%) (Auto) 15.8 % Monocytes (%) (Auto) 12.6 % Eosinophils (%) (Auto) 3.4 % Basophils (%) (Auto) 0.1 % Neutrophils # (Auto) 4.96 K/uL Lymphocytes # (Auto) 1.16 K/uL Monocytes # (Auto) 0.92 K/uL Eosinophils # (Auto) 0.25 K/uL Basophils # (Auto) 0.01 K/uL Assessment & Plan Assessment: Pt stable POD #3 s/p ORIF left distal femur periprosthetic fracture - Plan: 1. Med management- Hg improved s/p transfusion 2. DVT prophylaxis- ASA, SCDs 3. PT/OT- strict nonweightbearing, knee immobilizer when weightbearing( difficult given pt's mental status) 4. D/C planning- may be early next week until placement arranged
[2017-06-01] MEDS: PANTOprazole SOD 40 MG TAB PO SCH (09:07)
[2017-06-01] MEDS: CHOLECALCIFEROL 1000 INTER.UNIT TAB PO SCH (09:07)
[2017-06-01] MEDS: ALLOPURINOL 300 MG TAB PO SCH ×2 (09:07→21:07)
[2017-06-01] MEDS: AMLODIPINE BESYLATE 5 MG TAB PO SCH (09:08)
[2017-06-01] MEDS: ESCITALOPRAM OXALATE 20 MG TAB PO SCH (09:08)
[2017-06-01] MEDS: ESCITALOPRAM OXALATE 10 MG TAB PO SCH (09:08)
[2017-06-01] MEDS: FENOFIBRATE 48 MG TAB PO SCH (09:09)
[2017-06-01] MEDS: DOCUSATE SODIUM 100 MG CAP PO SCH ×2 (09:09→21:08)
[2017-06-01] MEDS: TAMSULOSIN HCL 0.4 MG CAP PO SCH (09:10)
[2017-06-01] MEDS: CIPROFLOXACIN 250 MG TAB PO SCH ×2 (09:10→21:08)
[2017-06-01] MEDS: DIVALPROEX SODIUM 250 MG DELAY REL TAB PO SCH ×2 (09:10→21:08)
[2017-06-01] MEDS: ASPIRIN/ALUM/MAGNES/CAL CARB 325 MG TAB PO SCH ×2 (09:11→21:07)
[2017-06-01] MEDS: ROSUVASTATIN CALCIUM 10 MG TAB PO SCH (09:11)
[2017-06-01] MEDS: INSULIN ASPART 100 UNITS/ML 3 ML PEN SC SCH ×4 (09:29→21:00)
[2017-06-01 15:16] VITALS: BP 132/67; PULSE 72; TEMP 36.1; O2SAT 91
--- NOTE | 2017-06-01 15:25 | Hospitalist Progress Note ---
Hospitalist Progress Note Date of Service Jun 01, 2017. (Alicia Wilson CRNP) Subjective Pt evaluation today including: conversation w/ patient, physical exam, chart review, lab review, review of inpatient medication list Voiding: no voiding problems Mr. Posey was sleeping soundly, awakens with verbal stimulus. No complaints ROS Constitutional: no chills, aches, sweats or fever Respiratory: no sob,cough, sputum, or wheezing Cardiac: no chest pain, palpitations, edema, orthopnea or lightheadedness GI: no abdominal pain, nausea, vomiting, diarrhea or constipation : no dysuria or hesitancy Extremities: no joint pain or weakness Skin: no rash All Other Systems: Reviewed and Negative (Alicia Wilson CRNP) Medications Medications Administered Medications (Trade) Dose Ordered Sig/Miranda Route Start Time Stop Time Status Last Admin Dose Admin Oxycodone/ Acetaminophen (Percocet 5-325mg Tab) 1 tab ONE ONCE PO 05/28/17 12:30 05/28/17 12:31 DC 05/28/17 12:34 1 TAB Allopurinol (Zyloprim Tab) 300 mg BID PO 05/28/17 21:00 06/27/17 20:59 06/01/17 09:07 300 MG Amlodipine Besylate (Norvasc Tab) 5 mg DAILY PO 05/29/17 09:00 06/28/17 08:59 06/01/17 09:08 5 MG Divalproex Sodium (Depakote Delay Rel Tab) 250 mg QAM PO 05/29/17 09:00 06/28/17 08:59 06/01/17 09:10 250 MG Divalproex Sodium (Depakote Delay Rel Tab) 500 mg HS PO 05/28/17 21:00 06/27/17 20:59 05/31/17 20:59 500 MG Escitalopram Oxalate (Lexapro Tab) 10 mg DAILY PO 05/29/17 09:00 06/28/17 08:59 06/01/17 09:08 10 MG Escitalopram Oxalate (Lexapro Tab) 20 mg DAILY PO 05/29/17 09:00 06/28/17 08:59 06/01/17 09:08 20 MG Fenofibrate (Tricor Tab) 48 mg DAILY PO 05/28/17 18:00 06/27/17 17:59 06/01/17 09:09 48 MG Lorazepam (Ativan Tab) 1 mg HS PO 05/28/17 21:00 06/27/17 20:59 05/31/17 20:58 1 MG Rosuvastatin Calcium (Crestor Tab) 10 mg DAILY PO 05/28/17 18:00 06/27/17 17:59 06/01/17 09:11 10 MG Tamsulosin HCl (Flomax Cap) 0.4 mg DAILY PO 05/29/17 09:00 06/28/17 08:59 06/01/17 09:10 0.4 MG Clindamycin Phosphate 900 mg/ Dextrose 106 ml @ 100 mls/hr TODAY@0600 IV 05/29/17 06:00 05/29/17 18:00 DC 05/29/17 14:20 100 MLS/HR Docusate Sodium (coLACE CAP) 100 mg BID PO 05/28/17 21:00 06/27/17 20:59 06/01/17 09:09 100 MG Pantoprazole Sodium (Protonix Tab) 40 mg QAM PO 05/29/17 09:00 06/28/17 08:59 06/01/17 09:07 40 MG Oxycodone HCl (Roxicodone Immediate Rel Tab) `1-2 tabs for pain 1 tab ... Q4HWA PRN PO 05/28/17 15:15 05/29/17 18:38 DC 05/28/17 17:14 5 MG Acetaminophen (Tylenol Tab) 1,000 mg Q8 PO 05/28/17 22:00 06/27/17 21:59 06/01/17 14:08 1,000 MG Ciprofloxacin (Ciprofloxacin Tab) 500 mg BID PO 05/28/17 21:00 06/27/17 20:59 06/01/17 09:10 500 MG Sodium Chloride 1,000 ml @ 75 mls/hr [id number] IV 05/28/17 18:15 05/29/17 19:50 DC 05/29/17 08:23 75 MLS/HR Insulin Aspart (novoLOG ASPART) SLIDING SCALE G... Q6 SC 05/29/17 06:00 05/29/17 23:16 DC 05/29/17 20:49 2 UNITS Cholecalciferol (Vitamin D Tab) 1,000 inter.unit QAM PO 05/30/17 09:00 06/29/17 08:59 06/01/17 09:07 1,000 INTER.UNIT Ropivacaine 150 mg/Bupivacaine HCl 30 ml/ Epinephrine HCl 0.15 mg/Ketorolac Tromethamine 30 mg/Dexamethasone Sodium Phosphate 4 mg/Ketamine HCl 10 mg/Clonidine 100 mcg/Sodium Chloride 93.35 ml @ 0 mls/hr TODAY@1430 INFIL 05/29/17 14:30 05/29/17 14:31 DC 05/29/17 17:24 93.5 MLS/HR Bacitracin (Bacitracin Inj) 50,000 units STK-MED ONCE .ROUTE 05/29/17 14:35 05/29/17 14:36 DC 05/29/17 17:10 50,000 UNITS Sodium Chloride 1,000 ml @ 85 mls/hr [id number] IV 05/29/17 18:30 06/01/17 03:27 DC 05/31/17 15:39 85 MLS/HR Clindamycin Phosphate 600 mg/ Dextrose 54 ml @ 100 mls/hr Q8H IV 05/29/17 22:00 05/30/17 06:33 DC 05/30/17 05:30 100 MLS/HR Aspirin/Aluminum/ Magnesium/Ca Carb (Ascriptin Tab) 325 mg BID PO 05/29/17 21:00 06/28/17 20:59 06/01/17 09:11 325 MG Senna/Docusate Sodium (Senokot S Tab) 2 tab HS PO 05/29/17 21:00 06/28/17 20:59 05/31/17 21:01 2 TAB Polyethylene (Miralax Powder Packet) 17 gm Q6 PO 05/31/17 06:00 06/30/17 05:59 06/01/17 12:30 17 GM Insulin Aspart (novoLOG ASPART) SLIDING SCALE G... ACHS SC 05/30/17 08:00 06/29/17 07:59 06/01/17 12:37 5 UNITS (Alicia Wilson CRNP) Objective Vital Signs Date Time Temp Pulse Resp B/P (MAP) Pulse Ox O2 Delivery O2 Flow Rate FiO2 06/01/17 15:16 36.1 72 18 132/67 (88) 91 Room Air 06/01/17 07:30 36.6 72 16 124/72 (89) 97 Room Air 06/01/17 07:15 Ambu-Bag 2.0 06/01/17 01:14 36.6 74 18 116/66 92 2.0 06/01/17 00:17 36.6 75 18 127/68 91 2.0 05/31/17 23:55 Nasal Cannula 2.0 05/31/17 23:50 37.3 79 16 124/68 91 2.0 05/31/17 23:18 91 2.0 05/31/17 23:16 36.9 79 20 123/65 88 0.0 05/31/17 23:02 36.8 83 18 137/66 89 05/31/17 22:44 37.2 82 18 127/63 88 05/31/17 22:00 37.5 87 16 127/63 93 05/31/17 21:05 37.3 86 18 135/50 94 05/31/17 20:37 37.8 88 18 131/64 97 05/31/17 20:12 37.1 05/31/17 20:08 38.6 95 18 127/65 96 05/31/17 19:54 37.2 87 18 130/67 90 05/31/17 19:29 37.1 90 18 124/71 92 05/31/17 15:40 Room Air (Alicia Wilson CRNP) Physical Exam Notes: General: no distress Eyes: normal inspection, PERLL Respiratory: chest non tender, clear to auscultation, normal breath sounds, no respiratory distress, no accessory muscle use Cardiac: regular rate and rhythm, no rub or gallop, no murmur, no edema, no jvd GI/: active bowel sounds, no abd pain or tenderness, soft, non distended Extremities: normal range of motion, normal strength, non tender, left knee mobilizer in place, brisk cap refill in toes Neuro/Psych: alert and oriented x 3, normal mood and affect Skin: normal color, dry (Alicia Wilson CRNP) Laboratory Results Last 24 Hours Test 05/31/17 17:06 05/31/17 20:23 06/01/17 05:56 06/01/17 08:09 Bedside Glucose 145 mg/dl 175 mg/dl 137 mg/dl White Blood Count 7.32 K/uL Red Blood Count 3.09 M/uL Hemoglobin 8.5 g/dL Hematocrit 25.6 % Mean Corpuscular Volume 82.8 fL Mean Corpuscular Hemoglobin 27.5 pg Mean Corpuscular Hemoglobin Concent 33.2 g/dl Platelet Count 223 K/uL Mean Platelet Volume 9.4 fL Neutrophils (%) (Auto) 67.8 % Lymphocytes (%) (Auto) 15.8 % Monocytes (%) (Auto) 12.6 % Eosinophils (%) (Auto) 3.4 % Basophils (%) (Auto) 0.1 % Neutrophils # (Auto) 4.96 K/uL Lymphocytes # (Auto) 1.16 K/uL Monocytes # (Auto) 0.92 K/uL Eosinophils # (Auto) 0.25 K/uL Basophils # (Auto) 0.01 K/uL RDW Standard Deviation 46.2 fL RDW Coefficient of Variation 15.3 % Immature Granulocyte % (Auto) 0.3 % Immature Granulocyte # (Auto) 0.02 K/uL Red Blood Cell Morphology Unremarkable Sodium Level 140 mmol/L Potassium Level 4.0 mmol/L Chloride Level 107 mmol/L Carbon Dioxide Level 27 mmol/L Anion Gap 7.0 mmol/L Blood Urea Nitrogen 20 mg/dl Creatinine 0.89 mg/dl Est Creatinine Clear Calc Drug Dose 99.5 ml/min Estimated GFR () 103.3 Estimated GFR (Non- 89.1 BUN/Creatinine Ratio 22.7 Random Glucose 133 mg/dl Calcium Level 8.3 mg/dl Chemistry Specimen Hemolysis Test 06/01/17 12:07 Bedside Glucose 135 mg/dl (Alicia Wilson, NEETU) Assessment and Plan 66 y/o male here for ORIF after sustaining a mechanical fall while getting into the shower and fracturing left femur. 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 - Hgb 8.5 this morning - cbc in am DMII - stable - A1c 6.5 - BSG ACHS and ISS - bsg stable - continue DM II diet HTN: blood pressures stable, continue amlodipine Seizure disorder: Continue Depakote 250 mg QAM and 500 mg HS Anxiety, depression: Continue Lexapro 30 mg daily, Ativan 1 mg HS Gout: Continue Allopurinol 300 mg BID, Indomethacin 50 mg TID PRN Hypercholesterolemia: Continue Crestor 10 mg daily BPH: Continue Flomax 0.4 mg daily GERD: Protonix DVT prophylaxis: ASA/Teds per ortho (Alicia Wilson, NEETU) I examined patient and I agree with the above note and analysis and plan of the patient. I discussed plan of care with patient and answered all of the questions My exam is below: General: no distress Head: NC, NT neck: No JVD, supple Respiratory: chest non tender, clear to auscultation, normal breath sounds, no respiratory distress, no accessory muscle use Cardiac: regular rate and rhythm, no rub or gallop, no murmur, no edema GI/: active bowel sounds, no abd pain or tenderness, soft, non distended Extremities: normal range of motion, normal strength, left knee mobilizer in place Neuro/Psych: alert and oriented to self only, normal mood and affect (Farhad Gant M.D.)
[2017-06-01] MEDS: DOCUSATE SODIUM/SENNA 50/8.6MG TAB PO SCH (21:07)
[2017-06-01] MEDS: LORAZEPAM 1 MG TAB PO SCH (21:12)
[2017-06-01 22:50] VITALS: BP 131/74; PULSE 81; TEMP 36.9; O2SAT 93
[2017-06-02] MEDS: POLYETHYLENE (MIRALAX) 17 GM PACK PO SCH ×3 (05:32→17:35)
[2017-06-02] MEDS: ACETAMINOPHEN 500 MG TAB PO SCH ×3 (05:32→20:59)
[2017-06-02 05:56] LABS: HEMATOCRIT 26.5 % (42-52); MEAN CELL VOLUME 82.3 fL (80-100); MEAN CORPUSCULAR HEMOGLOBIN 26.7 pg (25-34); MEAN CORPUSCULAR HGB CONC 32.5 g/dl (32-36); MEAN PLATELET VOLUME 8.6 fL (7.4-10.4); PLATELET COUNT 255 K/uL (130-400); RED BLOOD COUNT 3.22 M/uL (4.7-6.1); WHITE BLOOD COUNT 6.95 K/uL (4.8-10.8)
[2017-06-02 06:30] LABS: BUN/CREATININE RATIO 18.9 (10-20); CALCIUM 8.2 mg/dl (8.5-10.1); CREATININE 0.83 mg/dl (0.60-1.40); POTASSIUM 3.9 mmol/L (3.5-5.1)
[2017-06-02 07:31] VITALS: BP 141/77; PULSE 84; TEMP 36.9; O2SAT 93
--- NOTE | 2017-06-02 08:46 | Orthopedic Progress Note ---
Orthopedic Progress Note Date of Service Jun 02, 2017. Subjective Post OP Day: 4 Reports: feeling well Objective N/V intact, incision C/D/I, toes mobile Date Time Temp Pulse Resp B/P (MAP) Pulse Ox O2 Delivery O2 Flow Rate FiO2 06/02/17 07:31 36.9 84 18 141/77 (98) 93 Room Air 06/02/17 07:25 Room Air 06/01/17 23:30 Room Air 06/01/17 22:50 36.9 81 18 131/74 (93) 93 Room Air 06/01/17 16:00 Room Air 06/01/17 15:16 36.1 72 18 132/67 (88) 91 Room Air Laboratory Results 24 Hours: Test 06/02/17 05:40 Hematocrit 26.5 % Hemoglobin 8.6 g/dL Assessment & Plan Assessment: Pt stable POD #4 s/p ORIF left distal femur periprosthetic fracture, chronic left KARTHIK infection on po abx for supression - Plan: 1. Med management- Hg stable 2. DVT prophylaxis- ASA, SCDs 3. PT/OT- strict nonweightbearing, knee immobilizer when weightbearing( difficult given pt's mental status) 4. D/C planning- may be early next week until placement arranged
[2017-06-02] MEDS: DOCUSATE SODIUM 100 MG CAP PO SCH ×2 (09:18→20:57)
[2017-06-02] MEDS: AMLODIPINE BESYLATE 5 MG TAB PO SCH (09:19)
[2017-06-02] MEDS: CHOLECALCIFEROL 1000 INTER.UNIT TAB PO SCH (09:19)
[2017-06-02] MEDS: ESCITALOPRAM OXALATE 10 MG TAB PO SCH (09:19)
[2017-06-02] MEDS: TAMSULOSIN HCL 0.4 MG CAP PO SCH (09:20)
[2017-06-02] MEDS: DIVALPROEX SODIUM 250 MG DELAY REL TAB PO SCH ×2 (09:20→20:57)
[2017-06-02] MEDS: ASPIRIN/ALUM/MAGNES/CAL CARB 325 MG TAB PO SCH ×2 (09:20→20:57)
[2017-06-02] MEDS: ALLOPURINOL 300 MG TAB PO SCH ×2 (09:20→20:57)
[2017-06-02] MEDS: CIPROFLOXACIN 250 MG TAB PO SCH ×2 (09:20→20:57)
[2017-06-02] MEDS: FENOFIBRATE 48 MG TAB PO SCH (09:21)
[2017-06-02] MEDS: ROSUVASTATIN CALCIUM 10 MG TAB PO SCH (09:21)
[2017-06-02] MEDS: PANTOprazole SOD 40 MG TAB PO SCH (09:21)
[2017-06-02] MEDS: ESCITALOPRAM OXALATE 20 MG TAB PO SCH (09:22)
[2017-06-02] MEDS: INSULIN ASPART 100 UNITS/ML 3 ML PEN SC SCH ×4 (09:32→21:36)
--- NOTE | 2017-06-02 13:35 | Hospitalist Progress Note ---
Hospitalist Progress Note Date of Service Jun 02, 2017. (Alicia Wilson CRNP) Subjective Pt evaluation today including: conversation w/ patient, conversation w/ family , physical exam, chart review, lab review, review of inpatient medication list Voiding: no voiding problems Mr. Posey feels well today although per his sister he has been complaining of runny nose and congestion. ROS Constitutional: no chills, aches, sweats or fever Respiratory: no sob,cough, sputum, or wheezing Cardiac: no chest pain, palpitations, edema, orthopnea or lightheadedness GI: no abdominal pain, nausea, vomiting, diarrhea or constipation : no dysuria or hesitancy Extremities: no joint pain or weakness Skin: no rash All Other Systems: Reviewed and Negative (Alicia Wilson CRNP) Medications Medications Administered Medications (Trade) Dose Ordered Sig/Miranda Route Start Time Stop Time Status Last Admin Dose Admin Oxycodone/ Acetaminophen (Percocet 5-325mg Tab) 1 tab ONE ONCE PO 05/28/17 12:30 05/28/17 12:31 DC 05/28/17 12:34 1 TAB Allopurinol (Zyloprim Tab) 300 mg BID PO 05/28/17 21:00 06/27/17 20:59 06/02/17 09:20 300 MG Amlodipine Besylate (Norvasc Tab) 5 mg DAILY PO 05/29/17 09:00 06/28/17 08:59 06/02/17 09:19 5 MG Divalproex Sodium (Depakote Delay Rel Tab) 250 mg QAM PO 05/29/17 09:00 06/28/17 08:59 06/02/17 09:20 250 MG Divalproex Sodium (Depakote Delay Rel Tab) 500 mg HS PO 05/28/17 21:00 06/27/17 20:59 06/01/17 21:08 500 MG Escitalopram Oxalate (Lexapro Tab) 10 mg DAILY PO 05/29/17 09:00 06/28/17 08:59 06/02/17 09:19 10 MG Escitalopram Oxalate (Lexapro Tab) 20 mg DAILY PO 05/29/17 09:00 06/28/17 08:59 06/02/17 09:22 20 MG Fenofibrate (Tricor Tab) 48 mg DAILY PO 05/28/17 18:00 06/27/17 17:59 06/02/17 09:21 48 MG Lorazepam (Ativan Tab) 1 mg HS PO 05/28/17 21:00 06/27/17 20:59 06/01/17 21:12 1 MG Rosuvastatin Calcium (Crestor Tab) 10 mg DAILY PO 05/28/17 18:00 06/27/17 17:59 06/02/17 09:21 10 MG Tamsulosin HCl (Flomax Cap) 0.4 mg DAILY PO 05/29/17 09:00 06/28/17 08:59 06/02/17 09:20 0.4 MG Clindamycin Phosphate 900 mg/ Dextrose 106 ml @ 100 mls/hr TODAY@0600 IV 05/29/17 06:00 05/29/17 18:00 DC 05/29/17 14:20 100 MLS/HR Docusate Sodium (coLACE CAP) 100 mg BID PO 05/28/17 21:00 06/27/17 20:59 06/02/17 09:18 100 MG Pantoprazole Sodium (Protonix Tab) 40 mg QAM PO 05/29/17 09:00 06/28/17 08:59 06/02/17 09:21 40 MG Oxycodone HCl (Roxicodone Immediate Rel Tab) `1-2 tabs for pain 1 tab ... Q4HWA PRN PO 05/28/17 15:15 05/29/17 18:38 DC 05/28/17 17:14 5 MG Acetaminophen (Tylenol Tab) 1,000 mg Q8 PO 05/28/17 22:00 06/27/17 21:59 06/02/17 05:32 1,000 MG Ciprofloxacin (Ciprofloxacin Tab) 500 mg BID PO 05/28/17 21:00 06/27/17 20:59 06/02/17 09:20 500 MG Sodium Chloride 1,000 ml @ 75 mls/hr [id number] IV 05/28/17 18:15 05/29/17 19:50 DC 05/29/17 08:23 75 MLS/HR Insulin Aspart (novoLOG ASPART) SLIDING SCALE G... Q6 SC 05/29/17 06:00 05/29/17 23:16 DC 05/29/17 20:49 2 UNITS Cholecalciferol (Vitamin D Tab) 1,000 inter.unit QAM PO 05/30/17 09:00 06/29/17 08:59 06/02/17 09:19 1,000 INTER.UNIT Ropivacaine 150 mg/Bupivacaine HCl 30 ml/ Epinephrine HCl 0.15 mg/Ketorolac Tromethamine 30 mg/Dexamethasone Sodium Phosphate 4 mg/Ketamine HCl 10 mg/Clonidine 100 mcg/Sodium Chloride 93.35 ml @ 0 mls/hr TODAY@1430 INFIL 05/29/17 14:30 05/29/17 14:31 DC 05/29/17 17:24 93.5 MLS/HR Bacitracin (Bacitracin Inj) 50,000 units STK-MED ONCE .ROUTE 05/29/17 14:35 05/29/17 14:36 DC 05/29/17 17:10 50,000 UNITS Sodium Chloride 1,000 ml @ 85 mls/hr [id number] IV 05/29/17 18:30 06/01/17 03:27 DC 05/31/17 15:39 85 MLS/HR Clindamycin Phosphate 600 mg/ Dextrose 54 ml @ 100 mls/hr Q8H IV 05/29/17 22:00 05/30/17 06:33 DC 05/30/17 05:30 100 MLS/HR Aspirin/Aluminum/ Magnesium/Ca Carb (Ascriptin Tab) 325 mg BID PO 05/29/17 21:00 06/28/17 20:59 06/02/17 09:20 325 MG Senna/Docusate Sodium (Senokot S Tab) 2 tab HS PO 05/29/17 21:00 06/28/17 20:59 06/01/17 21:07 2 TAB Polyethylene (Miralax Powder Packet) 17 gm Q6 PO 05/31/17 06:00 06/30/17 05:59 06/02/17 05:32 17 GM Insulin Aspart (novoLOG ASPART) SLIDING SCALE G... ACHS SC 05/30/17 08:00 06/29/17 07:59 06/02/17 12:54 5 UNITS (Alicia Wilson CRNP) Objective Vital Signs Date Time Temp Pulse Resp B/P (MAP) Pulse Ox O2 Delivery O2 Flow Rate FiO2 06/02/17 07:31 36.9 84 18 141/77 (98) 93 Room Air 06/02/17 07:25 Room Air 06/01/17 23:30 Room Air 06/01/17 22:50 36.9 81 18 131/74 (93) 93 Room Air 06/01/17 16:00 Room Air 06/01/17 15:16 36.1 72 18 132/67 (88) 91 Room Air (Alicia Wilson CRNP) Physical Exam Notes: General: no distress Eyes: normal inspection, PERLL Respiratory: chest non tender, clear to auscultation, normal breath sounds, no respiratory distress, no accessory muscle use Cardiac: regular rate and rhythm, no rub or gallop, no murmur, no edema, no jvd GI/: active bowel sounds, no abd pain or tenderness, soft, non distended Extremities: normal range of motion, normal strength, non tender Neuro/Psych: alert and oriented x 3, normal mood and affect Skin: normal color, dry (Alicia Wilson CRNP) Laboratory Results Last 24 Hours Test 06/01/17 17:03 06/01/17 20:33 06/02/17 05:40 06/02/17 08:04 Bedside Glucose 178 mg/dl 149 mg/dl 127 mg/dl White Blood Count 6.95 K/uL Red Blood Count 3.22 M/uL Hemoglobin 8.6 g/dL Hematocrit 26.5 % Mean Corpuscular Volume 82.3 fL Mean Corpuscular Hemoglobin 26.7 pg Mean Corpuscular Hemoglobin Concent 32.5 g/dl RDW Standard Deviation 45.8 fL RDW Coefficient of Variation 15.3 % Platelet Count 255 K/uL Mean Platelet Volume 8.6 fL Sodium Level 136 mmol/L Potassium Level 3.9 mmol/L Chloride Level 103 mmol/L Carbon Dioxide Level 27 mmol/L Anion Gap 6.0 mmol/L Blood Urea Nitrogen 16 mg/dl Creatinine 0.83 mg/dl Est Creatinine Clear Calc Drug Dose 106.7 ml/min Estimated GFR () 106.3 Estimated GFR (Non- 91.7 BUN/Creatinine Ratio 18.9 Random Glucose 119 mg/dl Calcium Level 8.2 mg/dl Test 06/02/17 11:55 Bedside Glucose 155 mg/dl (Alicia Wilson CRNP) Assessment and Plan 66 y/o male here for ORIF after sustaining a mechanical fall while getting into the shower and fracturing left femur. 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 Ready for discharge medically when able (Alicia Wilson CRNP) I agree with above note. Discussed with APC And patient and his family. All questions were answered. Patient did have some swelling at 18:00 of upper lip. Patient though did not have any other areas of swelling. Family states that this has not happened before. Patient reports no breathing issues. No stridor noted. Lungs are CTA BL Heart is RRR IV solumedrol was ordered. Patient however did not have IV access. Asked for new IV line if patient requires new IV meds especially if patient does not improve. Med given near 20:00 (Farhad Gant M.D.)
[2017-06-02 16:07] VITALS: BP 147/71; PULSE 87; O2SAT 93
[2017-06-02] MEDS ORDERED: METHYLPREDNISOLONE IV 80 MG in SYRINGE 0 ML IV ONE (19:00)
[2017-06-02] MEDS: LORAZEPAM 1 MG TAB PO SCH (20:56)
[2017-06-02] MEDS: DOCUSATE SODIUM/SENNA 50/8.6MG TAB PO SCH (20:57)
[2017-06-02] MEDS ORDERED: NURSING DECISION MEDICATION ORDER SCH (23:00)
[2017-06-02 23:05] VITALS: BP 141/82; PULSE 79; TEMP 36.9; O2SAT 92
[2017-06-03] MEDS: ACETAMINOPHEN 500 MG TAB PO SCH ×3 (05:43→21:35)
[2017-06-03 07:05] VITALS: BP 138/78; PULSE 63; TEMP 36.5; O2SAT 96
--- NOTE | 2017-06-03 07:42 | Orthopedic Progress Note ---
Orthopedic Progress Note Date of Service Jun 03, 2017. Subjective Post OP Day: 5 Additional Notes: Difficulty to obtain how patient is feeling today due to his mental status and he had just woken up from sleeping. He did shake his head no when asking about chest pain, shortness of breath, nausea, vomiting or extremity pain. Objective calves soft nontender, N/V intact, capillary refill less than 2 sec., dressing C /D/I, toes mobile Date Time Temp Pulse Resp B/P (MAP) Pulse Ox O2 Delivery O2 Flow Rate FiO2 06/03/17 07:05 36.5 63 18 138/78 (98) 96 Room Air 06/03/17 00:25 Room Air 06/02/17 23:05 36.9 79 18 141/82 (101) 92 Room Air 06/02/17 16:07 87 18 147/71 (96) 93 Room Air 06/02/17 15:20 Room Air Assessment & Plan Assessment: Pt stable POD #5 s/p ORIF left distal femur periprosthetic fracture, chronic left KARTHIK infection on po abx for supression - Plan: 1. Med management- Hg stable 2. DVT prophylaxis- ASA, SCDs 3. PT/OT- strict nonweightbearing, knee immobilizer when weightbearing( difficult given pt's mental status) 4. D/C planning- awaiting placement to correction facility Inhouse Planning Pain Management: Morphine, PO Tylenol, Oxy IR DVT Prophylaxis: TEDs Discharge Planning Discharge Planning: correction facility
[2017-06-03] MEDS: PANTOprazole SOD 40 MG TAB PO SCH (08:55)
[2017-06-03] MEDS: CHOLECALCIFEROL 1000 INTER.UNIT TAB PO SCH (08:56)
[2017-06-03] MEDS: ESCITALOPRAM OXALATE 10 MG TAB PO SCH (08:56)
[2017-06-03] MEDS: ESCITALOPRAM OXALATE 20 MG TAB PO SCH (08:56)
[2017-06-03] MEDS: ALLOPURINOL 300 MG TAB PO SCH ×2 (08:56→21:34)
[2017-06-03] MEDS: AMLODIPINE BESYLATE 5 MG TAB PO SCH (08:56)
[2017-06-03] MEDS: ASPIRIN/ALUM/MAGNES/CAL CARB 325 MG TAB PO SCH ×2 (08:57→21:35)
[2017-06-03] MEDS: CIPROFLOXACIN 250 MG TAB PO SCH ×2 (08:57→21:35)
[2017-06-03] MEDS: DOCUSATE SODIUM 100 MG CAP PO SCH ×2 (08:57→21:34)
[2017-06-03] MEDS: TAMSULOSIN HCL 0.4 MG CAP PO SCH (08:58)
[2017-06-03] MEDS: FENOFIBRATE 48 MG TAB PO SCH (08:58)
[2017-06-03] MEDS: ROSUVASTATIN CALCIUM 10 MG TAB PO SCH (08:58)
[2017-06-03] MEDS: DIVALPROEX SODIUM 250 MG DELAY REL TAB PO SCH ×2 (08:59→21:35)
[2017-06-03] MEDS: INSULIN ASPART 100 UNITS/ML 3 ML PEN SC SCH ×4 (09:03→21:00)
[2017-06-03 16:11] VITALS: BP 121/75; PULSE 69; TEMP 36.8; O2SAT 93
[2017-06-03] MEDS ORDERED: INSULIN GLARGINE SOLOSTAR 100 UNITS/ML 3 ML PEN SC ONE (21:00)
--- NOTE | 2017-06-03 21:06 | Progress Note ---
Subjective Date of Service: Jun 03, 2017. Subjective Pt evaluation today including: conversation w/ patient, physical exam, lab review, review of inpatient medication list Pain: pain in leg PO Intake: poor Voiding: no voiding problems sugars becoming elevated today, 260 and 270 family concerned that he is having difficulty swallowing, getting worse reviewed labs, Hb stable vitals stable Problem List Medical Problems: (1) Elevated serum creatinine Status: Acute (2) Femur fracture, left Status: Acute (3) Shortness of breath Status: Acute Review of Systems Musculoskeletal: + joint pain All Other Systems: Reviewed and Negative Medications Current Inpatient Medications Medications (Trade) Dose Ordered Sig/Miranda Route Start Time Stop Time Status Last Admin Dose Admin Albuterol (Ventolin Hfa Inhaler) 2 puffs Q2H PRN INH 05/28/17 15:15 06/27/17 15:14 Allopurinol (Zyloprim Tab) 300 mg BID PO 05/28/17 21:00 06/27/17 20:59 06/03/17 08:56 300 MG Amlodipine Besylate (Norvasc Tab) 5 mg DAILY PO 05/29/17 09:00 06/28/17 08:59 06/03/17 08:56 5 MG Divalproex Sodium (Depakote Delay Rel Tab) 250 mg QAM PO 05/29/17 09:00 06/28/17 08:59 06/03/17 08:59 250 MG Divalproex Sodium (Depakote Delay Rel Tab) 500 mg HS PO 05/28/17 21:00 06/27/17 20:59 06/02/17 20:57 500 MG Escitalopram Oxalate (Lexapro Tab) 10 mg DAILY PO 05/29/17 09:00 06/28/17 08:59 06/03/17 08:56 10 MG Escitalopram Oxalate (Lexapro Tab) 20 mg DAILY PO 05/29/17 09:00 06/28/17 08:59 06/03/17 08:56 20 MG Fenofibrate (Tricor Tab) 48 mg DAILY PO 05/28/17 18:00 06/27/17 17:59 06/03/17 08:58 48 MG Lorazepam (Ativan Tab) 1 mg HS PO 05/28/17 21:00 06/27/17 20:59 06/02/17 20:56 1 MG Rosuvastatin Calcium (Crestor Tab) 10 mg DAILY PO 05/28/17 18:00 06/27/17 17:59 06/03/17 08:58 10 MG Tamsulosin HCl (Flomax Cap) 0.4 mg DAILY PO 05/29/17 09:00 06/28/17 08:59 06/03/17 08:58 0.4 MG Miscellaneous Information (Order Awaiting Action) 1 ea QS N/A 05/28/17 16:00 06/27/17 15:59 Ondansetron HCl (Zofran Inj) 4 mg Q6H PRN IV 05/28/17 15:15 06/27/17 15:14 Al Hydroxide/Mg Hydroxide (Maalox Susp) 30 ml Q6H PRN PO 05/28/17 15:15 06/27/17 15:14 Docusate Sodium (coLACE CAP) 100 mg BID PO 05/28/17 21:00 06/27/17 20:59 06/03/17 08:57 100 MG Pantoprazole Sodium (Protonix Tab) 40 mg QAM PO 05/29/17 09:00 06/28/17 08:59 06/03/17 08:55 40 MG Magnesium Hydroxide (Milk Of Magnesia Susp) 30 ml Q6H PRN PO 05/28/17 15:15 06/27/17 15:14 Morphine Sulfate (MoRPHine SULFATE INJ) 2 mg Q4HWA PRN IV 05/28/17 15:15 06/11/17 15:14 Morphine Sulfate (MoRPHine SULFATE INJ) 4 mg Q4HWA PRN IV 05/28/17 15:15 06/11/17 15:14 Acetaminophen (Tylenol Tab) 1,000 mg Q8 PO 05/28/17 22:00 06/27/17 21:59 06/03/17 13:44 1,000 MG Ciprofloxacin (Ciprofloxacin Tab) 500 mg BID PO 05/28/17 21:00 06/27/17 20:59 06/03/17 08:57 500 MG Indomethacin (Indocin Cap) 50 mg TID PRN PO 05/28/17 15:30 06/27/17 15:29 Glucose (Glucose 40% Gel) 15-30 GRAMS 15 GRAMS... UD PRN PO 05/28/17 16:30 06/27/17 16:29 Glucose (Glucose Chew Tab) 4-8 Tablets 4 Tabl... UD PRN PO 05/28/17 16:30 06/27/17 16:29 Dextrose (Dextrose 50% 50ML Syringe) 25-50ML OF 50% DW IV FOR... UD PRN IV 05/28/17 16:30 06/27/17 16:29 Glucagon (Glucagon Inj) 1 mg UD PRN SQ 05/28/17 16:30 06/27/17 16:29 Cholecalciferol (Vitamin D Tab) 1,000 inter.unit QAM PO 05/30/17 09:00 06/29/17 08:59 06/03/17 08:56 1,000 INTER.UNIT Ondansetron HCl (Zofran Inj) 4 mg Q6H PRN IV 05/29/17 18:15 06/28/17 18:14 Acetaminophen (Tylenol Tab) 650 mg Q6H PRN PO 05/29/17 18:15 06/28/17 18:14 Future Hold Oxycodone HCl (Roxicodone Immediate Rel Tab) 5 mg Q4H PRN PO 05/29/17 18:15 06/12/17 18:14 Oxycodone HCl (Roxicodone Immediate Rel Tab) 10 mg Q4H PRN PO 05/29/17 18:15 06/12/17 18:14 Aspirin/Aluminum/ Magnesium/Ca Carb (Ascriptin Tab) 325 mg BID PO 05/29/17 21:00 06/28/17 20:59 06/03/17 08:57 325 MG Morphine Sulfate (MoRPHine SULFATE INJ) 4 mg Q2H PRN IV 05/29/17 18:15 06/12/17 18:14 Naloxone HCl (Narcan Inj) 0.4 mg Q1M PRN IV 05/29/17 18:15 06/28/17 18:14 Senna/Docusate Sodium (Senokot S Tab) 2 tab HS PO 05/29/17 21:00 06/28/17 20:59 06/02/17 20:57 2 TAB Haloperidol Lactate (Haldol Inj) 2.5 mg Q6H PRN IM 05/29/17 20:30 06/28/17 20:29 Insulin Aspart (novoLOG ASPART) SLIDING SCALE G... ACHS SC 05/30/17 08:00 06/29/17 07:59 06/03/17 18:39 12 UNITS Haloperidol (Haldol Tab) 2 mg Q6H PRN PO 05/30/17 14:30 06/28/17 20:29 Objective Vital Signs Date Time Temp Pulse Resp B/P (MAP) Pulse Ox O2 Delivery O2 Flow Rate FiO2 06/03/17 16:11 36.8 69 18 121/75 (90) 93 Room Air 06/03/17 15:30 Room Air 06/03/17 07:25 Room Air 06/03/17 07:05 36.5 63 18 138/78 (98) 96 Room Air 06/03/17 00:25 Room Air 06/02/17 23:05 36.9 79 18 141/82 (101) 92 Room Air Physical Exam General Appearance: WD/WN, no apparent distress ENT: normal ENT inspection, hearing grossly normal, pharynx normal Neck: supple, no adenopathy, no JVD, trachea midline Respiratory/Chest: chest non-tender, lungs clear, normal breath sounds, no respiratory distress, no accessory muscle use Cardiovascular: regular rate, rhythm, no edema, no gallop, no JVD, no murmur Abdomen: normal bowel sounds, non tender, soft, no organomegaly Extremities: no pedal edema, no calf tenderness, normal capillary refill, pelvis stable, + pertinent finding (left leg immobilized) Neurologic/Psychiatric: director of strategy & mobile II-XII nml as tested, no motor/sensory deficits, alert, normal mood/affect, oriented x 3 Skin: normal color, warm/dry, no rash Laboratory Results Last 24 Hours Test 06/02/17 21:17 06/03/17 07:56 06/03/17 12:00 06/03/17 17:01 Bedside Glucose 193 mg/dl 212 mg/dl 271 mg/dl 263 mg/dl Assessment and Plan 66 y/o male here for ORIF after sustaining a mechanical fall while getting into the shower and fracturing left femur. L distal femur fracture secondary to mechanical fall, s/p ORIF 05/29 - surgical and pain management per orthopedics - continue ASA - Vitamin D level low was low on admission - vitamin D supplement started 05/29 - Continue home dose Cipro 500 mg BID for suppression therapy for chronic hip infection Post surgical anemia - 2 units prbc 05/31 - Hgb stable, 8.6 today DMII - sugars more elevated today, unclear why - will increase correction factor to 20, 1 unit per 8 gms, give Lantus 5 units now - A1c 6.5 - continue DM II diet HTN: blood pressures stable, continue amlodipine Seizure disorder: Continue Depakote 250 mg QAM and 500 mg HS Anxiety, depression: Continue Lexapro 30 mg daily, Ativan 1 mg HS Gout: Continue Allopurinol 300 mg BID, Indomethacin 50 mg TID PRN Hypercholesterolemia: Continue Crestor 10 mg daily BPH: Continue Flomax 0.4 mg daily GERD: Protonix Dysphagia: family concerned, will order speech evaluation DVT prophylaxis: ASA/Teds per ortho Per primary, awaiting placement
[2017-06-03] MEDS: LORAZEPAM 1 MG TAB PO SCH (21:34)
[2017-06-03] MEDS: DOCUSATE SODIUM/SENNA 50/8.6MG TAB PO SCH (21:34)
[2017-06-03 23:50] VITALS: BP 135/70; PULSE 74; TEMP 36.8; O2SAT 95
[2017-06-04] MEDS: ACETAMINOPHEN 500 MG TAB PO SCH ×3 (06:00→21:04)
[2017-06-04 07:31] VITALS: BP 137/74; PULSE 67; O2SAT 92
[2017-06-04 08:15] VITALS: O2SAT 92
[2017-06-04] MEDS: INSULIN ASPART 100 UNITS/ML 3 ML PEN SC SCH ×4 (08:43→20:48)
[2017-06-04] MEDS: DOCUSATE SODIUM 100 MG CAP PO SCH ×2 (08:44→21:04)
[2017-06-04] MEDS: ESCITALOPRAM OXALATE 10 MG TAB PO SCH (08:44)
[2017-06-04] MEDS: CHOLECALCIFEROL 1000 INTER.UNIT TAB PO SCH (08:45)
[2017-06-04] MEDS: ALLOPURINOL 300 MG TAB PO SCH ×2 (08:45→21:04)
[2017-06-04] MEDS: ESCITALOPRAM OXALATE 20 MG TAB PO SCH (08:45)
[2017-06-04] MEDS: PANTOprazole SOD 40 MG TAB PO SCH (08:45)
[2017-06-04] MEDS: AMLODIPINE BESYLATE 5 MG TAB PO SCH (08:45)
[2017-06-04] MEDS: TAMSULOSIN HCL 0.4 MG CAP PO SCH (08:46)
[2017-06-04] MEDS: FENOFIBRATE 48 MG TAB PO SCH (08:46)
[2017-06-04] MEDS: DIVALPROEX SODIUM 250 MG DELAY REL TAB PO SCH ×2 (08:47→21:04)
[2017-06-04] MEDS: CIPROFLOXACIN 250 MG TAB PO SCH ×2 (08:47→21:04)
[2017-06-04] MEDS: ASPIRIN/ALUM/MAGNES/CAL CARB 325 MG TAB PO SCH ×2 (08:47→21:04)
[2017-06-04] MEDS: ROSUVASTATIN CALCIUM 10 MG TAB PO SCH (08:47)
--- NOTE | 2017-06-04 11:16 | Orthopedic Progress Note ---
Orthopedic Progress Note Date of Service Jun 04, 2017. Subjective Additional Notes: Patient comfortable, no acute issues overnight, denies pain. Objective calves soft nontender, N/V intact, capillary refill less than 2 sec., dressing C /D/I, toes mobile Date Time Temp Pulse Resp B/P (MAP) Pulse Ox O2 Delivery O2 Flow Rate FiO2 06/04/17 08:15 92 06/04/17 07:31 67 18 137/74 (95) 92 Room Air 06/04/17 00:50 Room Air 06/03/17 23:50 36.8 74 18 135/70 (91) 95 Room Air 06/03/17 16:11 36.8 69 18 121/75 (90) 93 Room Air 06/03/17 15:30 Room Air Assessment & Plan Assessment: Pt stable POD #6 s/p ORIF left distal femur periprosthetic fracture, chronic left KARTHIK infection on po abx for supression - Plan: -Med management- Hg stable -Continue chronic suppression antibiotics cipro PO -DVT prophylaxis- ASA, SCDs - PT/OT- strict nonweightbearing, knee immobilizer when weightbearing(difficult given pt's mental status) -D/C planning- awaiting placement to senior living facility Inhouse Planning Pain Management: Morphine, PO Tylenol, Oxy IR DVT Prophylaxis: TEDs Discharge Planning Discharge Planning: senior living facility
[2017-06-04] MEDS ORDERED: TRAM-10 PO ×2 (11:54→12:17)
[2017-06-04] MEDS ORDERED: ASPI325T60 PO (11:54)
--- NOTE | 2017-06-04 12:00 | Discharge Instructions ---
Discharge Instructions Date of Service Jun 04, 2017. Admission Reason for Admission: Left Periprosthetic Distal Femur Fracture Discharge Discharge Diagnosis / Problem: Left distal periprosthetic femur fracture Discharge Goals Goal(s): Decrease discomfort, Improve function, Increase independence Activity Recommendations Activity Limitations: as noted below Exercise/Sports Limitations: until after follow-up appointment Shower/Bathe: keep incision dry Weightbearing Status: Left non-weightbearing No weight bearing left lower extremity . Instructions / Follow-Up Instructions / Follow-Up [facility] DISCHARGE INSTRUCTIONS: HIP FRACTURE SELF CARE INSTRUCTIONS: A. You are to ambulate with a walker or crutches for approximately 6 weeks. B. You are NON- WEIGHT BEARING on your operative lower extremity for at least 6 weeks. C. Wear low heeled shoes with non-slip soles D. Be sure that your floors are free of things that could trip you throw rugs, electrical cords, and small objects. Avoid wet and waxed floors, especially with crutches/walker/cane. E. Try to walk several times a day with rest periods between. F. You may shower 48 hours after surgery and get the incision area wet, but DO NOT soak or submerge incision area in water. (No baths, swimming pools, hot tubs ) G. You may have a large, band-aid like dressing over your incision. This will remain on your incision for 7 days, and then can be removed. You CAN shower with this on. If incision is leaking through the dressing, please call the office . H. Do NOT apply soap or any ointment/lotions directly over incision. I. You may use ice as needed to operative site. SPECIAL CARE INSTRUCTIONS: VERY IMPORTANT TO READ AND REVIEW A. You may be at risk for phlebitis or blood clots. a. Wear surgical stockings (KRYSTAL hose) for 2 weeks after surgery to improve circulation and reduce swelling. b. Take ASPIRIN 325 mg twice daily for 4 weeks or as directed. This is your blood thinner. You may continue your regular dose of Aspirin 81mg once you've completed 4 weeks of Aspirin 325mg twice daily. c. If you are on Coumadin- you will have daily/weekly blood work to monitor your levels. This will be done by either your family physician/ shuffle board operator (if you are on Coumadin chronically) versus your orthopedic surgeon. Expect a phone call the day of or the day after your blood work is drawn to adjust your dose accordingly. B. There are a few signs you need to watch for after you are home. Call [facility] at [phone] if you experience any of the following: a. If you have a temperature of 101 degrees or higher. b. Sudden increase in pain in your hip not relieved by rest or pain medication. c. Any fluid or drainage from the incision; redness of the incision. d. Shortness of breath or chest pain. B. Please call [facility] at [phone] if you have any questions or concerns about your operation or recovery. C. Call your physician if: a. Temperature is greater than 101 degrees (F). b. Pain is not relieved by prescribed pain medications. c. Increase drainage or redness from incision. d. Unanswered questions or concerns. D. Pain Medication: a. You will be prescribed pain medication upon discharge that should last till your first post-operative appointment. b. If you experience nausea and/or skin rash, discontinue this medication and contact our office for an alternative medication. c. Caution- narcotic pain medication can cause constipation. FOLLOW UP VISIT: Please call [facility] at [phone] to schedule a follow up appointment 10-14 days from the date of your surgery date. Current Hospital Diet Patient's current hospital diet: Diabetes Type 2 Diet Discharge Diet Recommended Diet: Diabetes Type 2 Diet Procedures Procedures Performed: Open Reduction Internal Fixation Left Distal Periprosthetic Femur Fracture Pending Studies Studies pending at discharge: no Laboratory Results Hemoglobin A1c Test 05/29/17 05:26 Range/Units Estimated Average Glucose 140 mg/dl Hemoglobin A1c 6.5 H 4.5-5.6 % Medical Emergencies . Who to Call and When: Medical Emergencies: If at any time you feel your situation is an emergency, please call 911 immediately. . Non-Emergent Contact Non-Emergency issues call your: Primary Care Provider Call Non-Emergent contact if: you have a fever, temperature is above 100.5, temperature is above 101, temperature is above 101.5, your pain is not controlled, your pain is worsening, your pain is unusual for you, your pain is concerning you, wound has increased drainage, wound has increased redness, wound has increased pain, you have any medication questions . "Provider Documentation" section prepared by Chris Copeland. . VTE Core Measure Inpt VTE Proph given/why not?: Other Anticoagulation, SCD's [place] Drug Monitoring Program Search Results: patient reviewed within database
--- NOTE | 2017-06-04 12:37 | Hospitalist Progress Note ---
Hospitalist Progress Note Date of Service Jun 04, 2017. Subjective Pt evaluation today including: conversation w/ patient, physical exam, chart review, lab review, review of inpatient medication list Voiding: no voiding problems Mr. Posey has no complaints today though he is somewhat difficult to assess how he is feeling given his mental status. ROS Constitutional: no chills, aches, sweats or fever Respiratory: no sob,cough, sputum, or wheezing Cardiac: no chest pain, palpitations, edema, orthopnea or lightheadedness GI: no abdominal pain, nausea, vomiting, diarrhea or constipation : no dysuria or hesitancy Extremities: no joint pain or weakness Skin: no rash All Other Systems: Reviewed and Negative Medications Medications Administered Medications (Trade) Dose Ordered Sig/Miranda Route Start Time Stop Time Status Last Admin Dose Admin Oxycodone/ Acetaminophen (Percocet 5-325mg Tab) 1 tab ONE ONCE PO 05/28/17 12:30 05/28/17 12:31 DC 05/28/17 12:34 1 TAB Allopurinol (Zyloprim Tab) 300 mg BID PO 05/28/17 21:00 06/27/17 20:59 06/04/17 08:45 300 MG Amlodipine Besylate (Norvasc Tab) 5 mg DAILY PO 05/29/17 09:00 06/28/17 08:59 06/04/17 08:45 5 MG Divalproex Sodium (Depakote Delay Rel Tab) 250 mg QAM PO 05/29/17 09:00 06/28/17 08:59 06/04/17 08:47 250 MG Divalproex Sodium (Depakote Delay Rel Tab) 500 mg HS PO 05/28/17 21:00 06/27/17 20:59 06/03/17 21:35 500 MG Escitalopram Oxalate (Lexapro Tab) 10 mg DAILY PO 05/29/17 09:00 06/28/17 08:59 06/04/17 08:44 10 MG Escitalopram Oxalate (Lexapro Tab) 20 mg DAILY PO 05/29/17 09:00 06/28/17 08:59 06/04/17 08:45 20 MG Fenofibrate (Tricor Tab) 48 mg DAILY PO 05/28/17 18:00 06/27/17 17:59 06/04/17 08:46 48 MG Lorazepam (Ativan Tab) 1 mg HS PO 05/28/17 21:00 06/27/17 20:59 06/03/17 21:34 1 MG Rosuvastatin Calcium (Crestor Tab) 10 mg DAILY PO 05/28/17 18:00 06/27/17 17:59 06/04/17 08:47 10 MG Tamsulosin HCl (Flomax Cap) 0.4 mg DAILY PO 05/29/17 09:00 06/28/17 08:59 06/04/17 08:46 0.4 MG Clindamycin Phosphate 900 mg/ Dextrose 106 ml @ 100 mls/hr TODAY@0600 IV 05/29/17 06:00 05/29/17 18:00 DC 05/29/17 14:20 100 MLS/HR Docusate Sodium (coLACE CAP) 100 mg BID PO 05/28/17 21:00 06/27/17 20:59 06/04/17 08:44 100 MG Pantoprazole Sodium (Protonix Tab) 40 mg QAM PO 05/29/17 09:00 06/28/17 08:59 06/04/17 08:45 40 MG Oxycodone HCl (Roxicodone Immediate Rel Tab) `1-2 tabs for pain 1 tab ... Q4HWA PRN PO 05/28/17 15:15 05/29/17 18:38 DC 05/28/17 17:14 5 MG Acetaminophen (Tylenol Tab) 1,000 mg Q8 PO 05/28/17 22:00 06/27/17 21:59 06/04/17 06:00 1,000 MG Ciprofloxacin (Ciprofloxacin Tab) 500 mg BID PO 05/28/17 21:00 06/27/17 20:59 06/04/17 08:47 500 MG Sodium Chloride 1,000 ml @ 75 mls/hr [id number] IV 05/28/17 18:15 05/29/17 19:50 DC 05/29/17 08:23 75 MLS/HR Insulin Aspart (novoLOG ASPART) SLIDING SCALE G... Q6 SC 05/29/17 06:00 05/29/17 23:16 DC 05/29/17 20:49 2 UNITS Cholecalciferol (Vitamin D Tab) 1,000 inter.unit QAM PO 05/30/17 09:00 06/29/17 08:59 06/04/17 08:45 1,000 INTER.UNIT Ropivacaine 150 mg/Bupivacaine HCl 30 ml/ Epinephrine HCl 0.15 mg/Ketorolac Tromethamine 30 mg/Dexamethasone Sodium Phosphate 4 mg/Ketamine HCl 10 mg/Clonidine 100 mcg/Sodium Chloride 93.35 ml @ 0 mls/hr TODAY@1430 INFIL 05/29/17 14:30 05/29/17 14:31 DC 05/29/17 17:24 93.5 MLS/HR Bacitracin (Bacitracin Inj) 50,000 units STK-MED ONCE .ROUTE 05/29/17 14:35 05/29/17 14:36 DC 05/29/17 17:10 50,000 UNITS Sodium Chloride 1,000 ml @ 85 mls/hr [id number] IV 05/29/17 18:30 06/01/17 03:27 DC 05/31/17 15:39 85 MLS/HR Clindamycin Phosphate 600 mg/ Dextrose 54 ml @ 100 mls/hr Q8H IV 05/29/17 22:00 05/30/17 06:33 DC 05/30/17 05:30 100 MLS/HR Aspirin/Aluminum/ Magnesium/Ca Carb (Ascriptin Tab) 325 mg BID PO 05/29/17 21:00 06/28/17 20:59 06/04/17 08:47 325 MG Senna/Docusate Sodium (Senokot S Tab) 2 tab HS PO 05/29/17 21:00 06/28/17 20:59 06/03/17 21:34 2 TAB Polyethylene (Miralax Powder Packet) 17 gm Q6 PO 05/31/17 06:00 06/02/17 23:06 DC 06/02/17 05:32 17 GM Insulin Aspart (novoLOG ASPART) SLIDING SCALE G... ACHS SC 05/30/17 08:00 06/29/17 07:59 06/04/17 08:43 6 UNITS Methylprednisolone Sodium Succinate 80 mg/Syringe 1.28 ml @ 1.5 mls/min TODAY@1900 ONCE IV 06/02/17 19:00 06/02/17 19:01 DC 06/02/17 19:59 1.5 MLS/MIN Insulin Glargine (Lantus Solostar Pen) 5 units NOW ONCE SC 06/03/17 21:00 06/03/17 21:03 DC 06/03/17 21:37 5 UNITS Objective Vital Signs Date Time Temp Pulse Resp B/P (MAP) Pulse Ox O2 Delivery O2 Flow Rate FiO2 06/04/17 08:15 92 06/04/17 07:31 67 18 137/74 (95) 92 Room Air 06/04/17 00:50 Room Air 06/03/17 23:50 36.8 74 18 135/70 (91) 95 Room Air 06/03/17 16:11 36.8 69 18 121/75 (90) 93 Room Air 06/03/17 15:30 Room Air Physical Exam Notes: General: no distress Eyes: normal inspection, PERLL Respiratory: chest non tender, clear to auscultation, normal breath sounds, no respiratory distress, no accessory muscle use Cardiac: regular rate and rhythm, no rub or gallop, no murmur, no edema, no jvd GI/: active bowel sounds, no abd pain or tenderness, soft, non distended Extremities: normal range of motion, normal strength, non tender, knee immobilizer in place Neuro/Psych: alert and oriented x 3, normal mood and affect Skin: normal color, dry Laboratory Results Last 24 Hours Test 06/03/17 17:01 06/03/17 20:54 06/04/17 08:12 06/04/17 12:03 Bedside Glucose 263 mg/dl 134 mg/dl 127 mg/dl 130 mg/dl Assessment and Plan 66 y/o male here for ORIF after sustaining a mechanical fall while getting into the shower and fracturing left femur. L distal femur fracture secondary to mechanical fall, s/p ORIF 05/29 - surgical and pain management per orthopedics - continue ASA - Vitamin D level low was low on admission - vitamin D supplement started 05/29 - Continue home dose Cipro 500 mg BID for suppression therapy for chronic hip infection Post surgical anemia - 2 units prbc 05/31 - Hgb stable DMII - stable - A1c 6.5 - BSG ACHS and ISS - bsg somewhat elevated yesterday, will continue to monitor and increase ss if elevated today - continue DM II diet HTN: blood pressures wnl, continue amlodipine Seizure disorder: Continue Depakote 250 mg QAM and 500 mg HS Anxiety, depression: Continue Lexapro 30 mg daily, Ativan 1 mg HS Gout: Continue Allopurinol 300 mg BID, Indomethacin 50 mg TID PRN Hypercholesterolemia: Continue Crestor 10 mg daily BPH: Continue Flomax 0.4 mg daily GERD: Protonix DVT prophylaxis: ASA/Teds per ortho Per primary, patient awaiting placement at [facility] after Target review complete. Ready for discharge medically when able
--- NOTE | 2017-06-04 13:31 | Clinical Documentation Query ---
CLINICAL DOCUMENTATION QUERY Ms. BELCHER, In your clinical opinion is this patient being managed for: (x ) Acute blood loss anemia/post surgical anemia due to blood loss ( ) Not Agree ( ) Other explanation of clinical findings (Please Explain) ( ) Unable to determine (Please Define) ( ) Need to Discuss The medical record reflects the following clinical findings, treatment, and risk factors. Clinical Indicators: 66 yo male presenting with a fall and subsequent distal femur fracture, requiring an ORIF. Initial Hgb 12.9, Hct 38.6 which dropped to 7.0/21.5 postoperatively . EBL of 450 cc. Treatment: 2 U PRBC, monitor CBC Risk Factors: fall with fracture and EBL Please clarify and document your clinical opinion in the progress notes and discharge summary. Terms such as "probable", "suspected", "likely", "questionable", "possible", or "still to be ruled out" are acceptable. IF IN AGREEMENT, YOU MUST DOCUMENT ABOVE DIAGNOSTIC STATEMENT IN DAILY PROGRESS NOTES AND DISCHARGE SUMMARY. This document is not part of the patient's record. Thank You, Juana Bermudez RN [phone]
[2017-06-04 14:54] VITALS: BP 119/73; PULSE 75; TEMP 36.5; O2SAT 92
[2017-06-04] MEDS: DOCUSATE SODIUM/SENNA 50/8.6MG TAB PO SCH (21:04)
[2017-06-04] MEDS: LORAZEPAM 1 MG TAB PO SCH (21:07)
[2017-06-04 22:30] VITALS: BP 130/74; PULSE 71; TEMP 37; O2SAT 93
[2017-06-05] MEDS: ACETAMINOPHEN 500 MG TAB PO SCH ×3 (05:22→21:27)
[2017-06-05 07:35] VITALS: O2SAT 94
--- NOTE | 2017-06-05 07:36 | Orthopedic Progress Note ---
Orthopedic Progress Note Date of Service Jun 05, 2017. Subjective Post OP Day: 7 Additional Notes: Pt resting comfortably. No new complaints. Objective calves soft nontender, N/V intact, incision C/D/I, toes mobile Date Time Temp Pulse Resp B/P (MAP) Pulse Ox O2 Delivery O2 Flow Rate FiO2 06/04/17 22:30 37.0 71 16 130/74 (92) 93 Room Air 06/04/17 22:30 Room Air 06/04/17 15:30 Room Air 06/04/17 14:54 36.5 75 17 119/73 (88) 92 Room Air 06/04/17 08:15 92 06/04/17 07:31 67 18 137/74 (95) 92 Room Air Assessment & Plan Assessment: Pt stable POD #7 s/p ORIF left distal femur periprosthetic fracture, chronic left KARTHIK infection on po abx for supression - Plan: -Med management- Hg stable -Continue chronic suppression antibiotics cipro PO -DVT prophylaxis- ASA, SCDs - PT/OT- strict nonweightbearing, knee immobilizer when ambulating (difficult given pt's mental status) -D/C planning- awaiting placement to retirement facility ([facility]) Inhouse Planning Pain Management: Morphine, PO Tylenol, Oxy IR DVT Prophylaxis: TEDs, ASA Discharge Planning Discharge Planning: retirement facility
[2017-06-05 07:37] VITALS: BP 125/82; PULSE 70; TEMP 36.5; O2SAT 94
[2017-06-05] MEDS: CHOLECALCIFEROL 1000 INTER.UNIT TAB PO SCH (08:52)
[2017-06-05] MEDS: INSULIN ASPART 100 UNITS/ML 3 ML PEN SC SCH ×4 (08:52→21:00)
[2017-06-05] MEDS: ESCITALOPRAM OXALATE 10 MG TAB PO SCH (08:53)
[2017-06-05] MEDS: ALLOPURINOL 300 MG TAB PO SCH ×2 (08:53→21:26)
[2017-06-05] MEDS: PANTOprazole SOD 40 MG TAB PO SCH (08:53)
[2017-06-05] MEDS: ESCITALOPRAM OXALATE 20 MG TAB PO SCH (08:53)
[2017-06-05] MEDS: AMLODIPINE BESYLATE 5 MG TAB PO SCH (08:53)
[2017-06-05] MEDS: DOCUSATE SODIUM 100 MG CAP PO SCH ×2 (08:53→21:00)
[2017-06-05] MEDS: TAMSULOSIN HCL 0.4 MG CAP PO SCH (08:54)
[2017-06-05] MEDS: DIVALPROEX SODIUM 250 MG DELAY REL TAB PO SCH ×2 (08:54→21:25)
[2017-06-05] MEDS: FENOFIBRATE 48 MG TAB PO SCH (08:55)
[2017-06-05] MEDS: ASPIRIN/ALUM/MAGNES/CAL CARB 325 MG TAB PO SCH ×2 (08:55→21:25)
[2017-06-05] MEDS: CIPROFLOXACIN 250 MG TAB PO SCH ×2 (08:55→21:25)
[2017-06-05] MEDS: ROSUVASTATIN CALCIUM 10 MG TAB PO SCH (08:56)
[2017-06-05 16:00] VITALS: BP 129/77; PULSE 74; TEMP 36.7; O2SAT 93
[2017-06-05] MEDS: DOCUSATE SODIUM/SENNA 50/8.6MG TAB PO SCH (21:00)
[2017-06-05] MEDS: LORAZEPAM 1 MG TAB PO SCH (21:26)
[2017-06-05 22:55] VITALS: BP 120/71; PULSE 75; TEMP 36.7; O2SAT 96
[2017-06-06] MEDS: ACETAMINOPHEN 500 MG TAB PO SCH ×3 (05:42→21:24)
[2017-06-06 08:00] VITALS: O2SAT 94
[2017-06-06 08:09] VITALS: BP 126/78; PULSE 57; TEMP 36.5; O2SAT 94
[2017-06-06] MEDS: INSULIN ASPART 100 UNITS/ML 3 ML PEN SC SCH ×4 (09:06→21:25)
[2017-06-06] MEDS: ASPIRIN/ALUM/MAGNES/CAL CARB 325 MG TAB PO SCH ×2 (09:07→21:23)
[2017-06-06] MEDS: ROSUVASTATIN CALCIUM 10 MG TAB PO SCH (09:08)
[2017-06-06] MEDS: CIPROFLOXACIN 250 MG TAB PO SCH ×2 (09:08→21:23)
[2017-06-06] MEDS: DOCUSATE SODIUM 100 MG CAP PO SCH ×2 (09:08→21:23)
[2017-06-06] MEDS: ESCITALOPRAM OXALATE 10 MG TAB PO SCH (09:09)
[2017-06-06] MEDS: DIVALPROEX SODIUM 250 MG DELAY REL TAB PO SCH ×2 (09:09→21:23)
[2017-06-06] MEDS: PANTOprazole SOD 40 MG TAB PO SCH (09:09)
[2017-06-06] MEDS: ESCITALOPRAM OXALATE 20 MG TAB PO SCH (09:09)
[2017-06-06] MEDS: TAMSULOSIN HCL 0.4 MG CAP PO SCH (09:09)
[2017-06-06] MEDS: CHOLECALCIFEROL 1000 INTER.UNIT TAB PO SCH (09:10)
[2017-06-06] MEDS: AMLODIPINE BESYLATE 5 MG TAB PO SCH (09:10)
[2017-06-06] MEDS: FENOFIBRATE 48 MG TAB PO SCH (09:10)
[2017-06-06] MEDS: ALLOPURINOL 300 MG TAB PO SCH ×2 (09:12→21:23)
--- NOTE | 2017-06-06 09:34 | Orthopedic Progress Note ---
Orthopedic Progress Note Date of Service Jun 06, 2017. Subjective Post OP Day: 8 Reports: feeling well, Denies: complaints Additional Notes: Pt sitting up in bed, awake, alert. Denies pain in the LLE. Objective calves soft nontender, N/V intact, incision C/D/I, toes mobile Date Time Temp Pulse Resp B/P (MAP) Pulse Ox O2 Delivery O2 Flow Rate FiO2 06/06/17 08:09 36.5 57 18 126/78 (94) 94 Room Air 06/05/17 23:15 Room Air 06/05/17 22:55 36.7 75 18 120/71 (87) 96 Room Air 06/05/17 16:00 36.7 74 16 129/77 (94) 93 Room Air 06/05/17 14:00 Room Air Assessment & Plan Assessment: Pt stable POD #8 s/p ORIF left distal femur periprosthetic fracture, chronic left KARTHIK infection on po abx for supression - Plan: -Med management- Hg stable -Continue chronic suppression antibiotics cipro PO -DVT prophylaxis- ASA, SCDs - PT/OT- strict nonweightbearing, knee immobilizer when ambulating (difficult given pt's mental status) -D/C planning- [facility] to [facility] ([facility]) Addendum: Patient seen and evaluated at 1545, patient was ready for transport to SNF however discharge canceled due to leanne-oral swelling, no trauma or erythema to lip on exam. No difficulty breathing. Patient received new IV and Benadryl. Will monitor. Inhouse Planning Pain Management: Morphine, PO Tylenol, Oxy IR DVT Prophylaxis: TEDs ASA Discharge Planning Discharge Planning: prison facility
[2017-06-06 13:43] VITALS: BP 126/78; PULSE 57; TEMP 36.5; O2SAT 94
[2017-06-06 14:41] VITALS: BP 129/77; PULSE 71; TEMP 36.5; O2SAT 94
[2017-06-06] MEDS ORDERED: DiphenhydrAMINE HCL 50 MG/ML VIAL IV STA (15:09)
[2017-06-06] MEDS ORDERED: METHYLPREDNISOLONE IV 40 MG in SYRINGE 0 ML IV STA (15:09)
[2017-06-06] MEDS ORDERED: DiphenhydrAMINE INJ 25 MG in SYRINGE 0 ML IV SCH (15:15)
[2017-06-06 15:55] VITALS: BP 118/74; PULSE 72; TEMP 36.5; O2SAT 94
--- NOTE | 2017-06-06 16:10 | Progress Note ---
Progress Note Date of Service Jun 06, 2017. Progress Note Called to the bedside around 1500 today because the patient developed sudden lip swelling on the right lower side. Per the RN, the swelling had not been there 30 minutes prior. No new foods or medications. No KAVYA or ARBs. On exam, the patient was resting comfortably, no distress, no difficulty breathing, no stridor. The right lower lip was visibly swollen and that swelling tracked into the right inner oral mucosa. The patient was able to stick his tongue out and it did not appear swollen. I was able to visualize his posterior oropharynx easily, no swelling of the uvula or the tonsillar pillars. Lungs clear to auscultation, HR regular. Ordered Solu Medrol 40mg IV and Benadryl 25mg IV, cancel discharge for today
[2017-06-06] MEDS: LORAZEPAM 1 MG TAB PO SCH (21:23)
[2017-06-06] MEDS: DOCUSATE SODIUM/SENNA 50/8.6MG TAB PO SCH (21:23)
[2017-06-06 22:55] VITALS: BP 134/82; PULSE 68; TEMP 36.5; O2SAT 91
[2017-06-07] MEDS: ACETAMINOPHEN 500 MG TAB PO SCH ×3 (05:56→21:46)
--- NOTE | 2017-06-07 07:08 | Orthopedic Progress Note ---
Orthopedic Progress Note Date of Service Jun 07, 2017. Subjective Additional Notes: Patient seen resting comfortably, no acute issues overnight. Denies pain. Objective calves soft nontender, N/V intact, capillary refill less than 2 sec., dressing C /D/I, toes mobile -leanne-oral or facial swelling. Date Time Temp Pulse Resp B/P (MAP) Pulse Ox O2 Delivery O2 Flow Rate FiO2 06/06/17 23:30 Room Air 06/06/17 22:55 36.5 68 18 134/82 (99) 91 Room Air 06/06/17 15:55 36.5 72 18 118/74 (89) 94 Room Air 06/06/17 15:30 Room Air 06/06/17 14:41 36.5 71 18 129/77 (94) 94 06/06/17 13:43 36.5 57 18 94 Room Air 06/06/17 08:09 36.5 57 18 126/78 (94) 94 Room Air 06/06/17 08:00 94 Room Air Assessment & Plan Assessment: Pt stable POD #9 s/p ORIF left distal femur periprosthetic fracture, chronic left KARTHIK infection on po abx for supression - Plan: -leanne-oral swelling resolved -Med management- Hg stable -Continue chronic suppression antibiotics cipro PO -DVT prophylaxis- ASA, SCDs - PT/OT- strict nonweightbearing, knee immobilizer when ambulating (difficult given pt's mental status) -D/C planning- DC to detention facility ([facility]) today Inhouse Planning Pain Management: Morphine, PO Tylenol, Oxy IR DVT Prophylaxis: TEDs ASA Discharge Planning Discharge Planning: detention facility
[2017-06-07 07:40] VITALS: O2SAT 91
[2017-06-07 07:53] VITALS: BP 150/76; PULSE 70; TEMP 36.4; O2SAT 91
[2017-06-07 08:00] VITALS: O2SAT 91; O2SAT 94
[2017-06-07] MEDS: INSULIN ASPART 100 UNITS/ML 3 ML PEN SC SCH ×4 (08:54→20:37)
[2017-06-07] MEDS: ALLOPURINOL 300 MG TAB PO SCH ×2 (09:10→20:41)
[2017-06-07] MEDS: DIVALPROEX SODIUM 250 MG DELAY REL TAB PO SCH ×2 (09:11→20:41)
[2017-06-07] MEDS: CHOLECALCIFEROL 1000 INTER.UNIT TAB PO SCH (09:11)
[2017-06-07] MEDS: ASPIRIN/ALUM/MAGNES/CAL CARB 325 MG TAB PO SCH ×2 (09:11→20:41)
[2017-06-07] MEDS: AMLODIPINE BESYLATE 5 MG TAB PO SCH (09:11)
[2017-06-07] MEDS: ESCITALOPRAM OXALATE 20 MG TAB PO SCH (09:12)
[2017-06-07] MEDS: PANTOprazole SOD 40 MG TAB PO SCH (09:12)
[2017-06-07] MEDS: ESCITALOPRAM OXALATE 10 MG TAB PO SCH (09:12)
[2017-06-07] MEDS: DOCUSATE SODIUM 100 MG CAP PO SCH ×2 (09:12→20:41)
[2017-06-07] MEDS: FENOFIBRATE 48 MG TAB PO SCH (09:13)
[2017-06-07] MEDS: ROSUVASTATIN CALCIUM 10 MG TAB PO SCH (09:13)
[2017-06-07] MEDS: TAMSULOSIN HCL 0.4 MG CAP PO SCH (09:14)
[2017-06-07] MEDS: CIPROFLOXACIN 250 MG TAB PO SCH ×2 (09:14→20:41)
[2017-06-07] MEDS: OXYCODONE HCL IR 5 MG TAB (IMMEDIATE RELEASE) PO PRN (12:52)
[2017-06-07 15:32] VITALS: BP 125/73; PULSE 79; TEMP 36.7; O2SAT 95
[2017-06-07] MEDS: LORAZEPAM 1 MG TAB PO SCH (20:41)
[2017-06-07] MEDS: DOCUSATE SODIUM/SENNA 50/8.6MG TAB PO SCH (20:41)
[2017-06-07 22:55] VITALS: BP 127/75; PULSE 68; TEMP 36.7; O2SAT 94
[2017-06-08] MEDS: OXYCODONE HCL IR 5 MG TAB (IMMEDIATE RELEASE) PO PRN (01:32)
[2017-06-08] MEDS: ACETAMINOPHEN 500 MG TAB PO SCH ×3 (05:48→21:20)
[2017-06-08 07:43] VITALS: BP 123/73; PULSE 58; TEMP 36.4; O2SAT 92
--- NOTE | 2017-06-08 09:19 | Orthopedic Progress Note ---
Orthopedic Progress Note Date of Service Jun 08, 2017. Subjective Post OP Day: 10 Reports: feeling well, pain controlled w PO medications, Denies: chest pain, SOB , nausea / vomiting, light headedness, calf pain Objective calves soft nontender, N/V intact, capillary refill less than 2 sec., incision C /D/I, toes mobile Date Time Temp Pulse Resp B/P (MAP) Pulse Ox O2 Delivery O2 Flow Rate FiO2 06/08/17 07:43 36.4 58 16 123/73 (90) 92 Room Air 06/07/17 23:36 Room Air 06/07/17 22:55 36.7 68 18 127/75 (92) 94 Room Air 06/07/17 15:32 36.7 79 18 125/73 (90) 95 Room Air 06/07/17 15:30 Room Air Assessment & Plan Assessment: Pt stable POD #10 s/p ORIF left distal femur periprosthetic fracture, chronic left KARTHIK infection on po abx for supression - Plan: -leanne-oral swelling resolved- no complaints today -Med management- Hg stable -Continue chronic suppression antibiotics cipro PO -DVT prophylaxis- ASA, SCDs - PT/OT- strict nonweightbearing, knee immobilizer when ambulating (difficult given pt's mental status) -D/C planning- DC to prison facility ([facility]) most likely on saturday. Waiting for approval Inhouse Planning Pain Management: PO Tylenol, Oxy IR DVT Prophylaxis: TEDs, ASA Discharge Planning Discharge Planning: prison facility
[2017-06-08] MEDS: ESCITALOPRAM OXALATE 10 MG TAB PO SCH (09:20)
[2017-06-08] MEDS: FENOFIBRATE 48 MG TAB PO SCH (09:21)
[2017-06-08] MEDS: ESCITALOPRAM OXALATE 20 MG TAB PO SCH (09:21)
[2017-06-08] MEDS: TAMSULOSIN HCL 0.4 MG CAP PO SCH (09:21)
[2017-06-08] MEDS: DIVALPROEX SODIUM 250 MG DELAY REL TAB PO SCH ×2 (09:21→21:18)
[2017-06-08] MEDS: DOCUSATE SODIUM 100 MG CAP PO SCH ×2 (09:22→21:17)
[2017-06-08] MEDS: ROSUVASTATIN CALCIUM 10 MG TAB PO SCH (09:22)
[2017-06-08] MEDS: PANTOprazole SOD 40 MG TAB PO SCH (09:22)
[2017-06-08] MEDS: ALLOPURINOL 300 MG TAB PO SCH ×2 (09:22→21:19)
[2017-06-08] MEDS: CIPROFLOXACIN 250 MG TAB PO SCH ×2 (09:22→21:17)
[2017-06-08] MEDS: AMLODIPINE BESYLATE 5 MG TAB PO SCH (09:22)
[2017-06-08] MEDS: ASPIRIN/ALUM/MAGNES/CAL CARB 325 MG TAB PO SCH ×2 (09:22→21:16)
[2017-06-08] MEDS: CHOLECALCIFEROL 1000 INTER.UNIT TAB PO SCH (09:22)
[2017-06-08] MEDS: INSULIN ASPART 100 UNITS/ML 3 ML PEN SC SCH ×4 (09:29→21:00)
[2017-06-08 09:30] VITALS: BP 112/70; PULSE 67
[2017-06-08 15:17] VITALS: BP 119/73; PULSE 66; TEMP 36.2; O2SAT 92
[2017-06-08] MEDS: LORAZEPAM 1 MG TAB PO SCH (21:17)
[2017-06-08] MEDS: DOCUSATE SODIUM/SENNA 50/8.6MG TAB PO SCH (21:18)
[2017-06-08 23:25] VITALS: BP 134/77; PULSE 72; TEMP 37.3; O2SAT 92
[2017-06-09] MEDS: ACETAMINOPHEN 500 MG TAB PO SCH ×3 (05:26→22:20)
[2017-06-09 07:43] VITALS: BP 150/78; PULSE 65; TEMP 36.4; O2SAT 94
[2017-06-09] MEDS: DOCUSATE SODIUM 100 MG CAP PO SCH ×2 (09:24→22:19)
[2017-06-09] MEDS: CHOLECALCIFEROL 1000 INTER.UNIT TAB PO SCH (09:24)
[2017-06-09] MEDS: PANTOprazole SOD 40 MG TAB PO SCH (09:24)
[2017-06-09] MEDS: ESCITALOPRAM OXALATE 10 MG TAB PO SCH (09:24)
[2017-06-09] MEDS: ESCITALOPRAM OXALATE 20 MG TAB PO SCH (09:24)
[2017-06-09] MEDS: TAMSULOSIN HCL 0.4 MG CAP PO SCH (09:25)
[2017-06-09] MEDS: ALLOPURINOL 300 MG TAB PO SCH ×2 (09:25→22:20)
[2017-06-09] MEDS: AMLODIPINE BESYLATE 5 MG TAB PO SCH (09:25)
[2017-06-09] MEDS: FENOFIBRATE 48 MG TAB PO SCH (09:25)
[2017-06-09] MEDS: ROSUVASTATIN CALCIUM 10 MG TAB PO SCH (09:25)
[2017-06-09] MEDS: CIPROFLOXACIN 250 MG TAB PO SCH ×2 (09:26→22:19)
[2017-06-09] MEDS: ASPIRIN/ALUM/MAGNES/CAL CARB 325 MG TAB PO SCH ×2 (09:26→22:18)
[2017-06-09] MEDS: DIVALPROEX SODIUM 250 MG DELAY REL TAB PO SCH ×2 (09:26→22:20)
[2017-06-09] MEDS: INSULIN ASPART 100 UNITS/ML 3 ML PEN SC SCH ×4 (09:32→21:00)
--- NOTE | 2017-06-09 10:45 | Orthopedic Progress Note ---
Orthopedic Progress Note Date of Service Jun 09, 2017. Subjective Reports: feeling well, pain controlled w PO medications, Denies: chest pain, SOB , nausea / vomiting, light headedness, calf pain Objective calves soft nontender, N/V intact, capillary refill less than 2 sec., incision C /D/I, toes mobile Date Time Temp Pulse Resp B/P (MAP) Pulse Ox O2 Delivery O2 Flow Rate FiO2 06/09/17 07:43 36.4 65 16 150/78 (102) 94 Room Air 06/09/17 07:25 Room Air 06/09/17 00:18 Room Air 06/08/17 23:25 37.3 72 18 134/77 (96) 92 Room Air 06/08/17 16:00 Room Air 06/08/17 15:17 36.2 66 18 119/73 (88) 92 Room Air Assessment & Plan Assessment: Pt stable POD #11 s/p ORIF left distal femur periprosthetic fracture, chronic left KARTHIK infection on po abx for supression - Plan: -leanen-oral swelling resolved- no complaints again today -Med management- Hg stable -Continue chronic suppression antibiotics cipro PO -DVT prophylaxis- ASA, SCDs - PT/OT- strict nonweightbearing, knee immobilizer when ambulating (difficult given pt's mental status) -D/C planning- DC to shelter facility ([facility]) most likely on saturday. Waiting for approval Inhouse Planning Pain Management: PO Tylenol, Oxy IR DVT Prophylaxis: TEDs, ASA Discharge Planning Discharge Planning: shelter facility
[2017-06-09 15:32] VITALS: BP 133/84; PULSE 81; TEMP 36.9; O2SAT 94
[2017-06-09] MEDS: LORAZEPAM 1 MG TAB PO SCH (22:18)
[2017-06-09] MEDS: DOCUSATE SODIUM/SENNA 50/8.6MG TAB PO SCH (22:19)
[2017-06-09 23:17] VITALS: BP 131/75; PULSE 78; TEMP 36.8; O2SAT 91
[2017-06-10] MEDS: ACETAMINOPHEN 500 MG TAB PO SCH ×3 (05:11→21:17)
[2017-06-10 07:30] VITALS: BP 128/73; PULSE 72; TEMP 36.6; O2SAT 90
[2017-06-10] MEDS: FENOFIBRATE 48 MG TAB PO SCH (08:36)
[2017-06-10] MEDS: TAMSULOSIN HCL 0.4 MG CAP PO SCH (08:36)
[2017-06-10] MEDS: DOCUSATE SODIUM 100 MG CAP PO SCH ×2 (08:37→21:17)
[2017-06-10] MEDS: ASPIRIN/ALUM/MAGNES/CAL CARB 325 MG TAB PO SCH ×2 (08:37→21:17)
[2017-06-10] MEDS: AMLODIPINE BESYLATE 5 MG TAB PO SCH (08:37)
[2017-06-10] MEDS: ROSUVASTATIN CALCIUM 10 MG TAB PO SCH (08:37)
[2017-06-10] MEDS: ALLOPURINOL 300 MG TAB PO SCH ×2 (08:37→21:17)
[2017-06-10] MEDS: CHOLECALCIFEROL 1000 INTER.UNIT TAB PO SCH (08:37)
[2017-06-10] MEDS: DIVALPROEX SODIUM 250 MG DELAY REL TAB PO SCH ×2 (08:38→21:17)
[2017-06-10] MEDS: ESCITALOPRAM OXALATE 10 MG TAB PO SCH (08:38)
[2017-06-10] MEDS: CIPROFLOXACIN 250 MG TAB PO SCH ×2 (08:38→21:17)
[2017-06-10] MEDS: ESCITALOPRAM OXALATE 20 MG TAB PO SCH (08:38)
[2017-06-10] MEDS: PANTOprazole SOD 40 MG TAB PO SCH (08:38)
[2017-06-10] MEDS: INSULIN ASPART 100 UNITS/ML 3 ML PEN SC SCH ×4 (08:45→21:00)
--- NOTE | 2017-06-10 10:48 | Orthopedic Progress Note ---
Orthopedic Progress Note Date of Service Jun 10, 2017. Subjective Post OP Day: 12 Additional Notes: Pt lying in bed. Awake, alert. Appears comfortable. Denies pain in the LLE. Objective calves soft nontender, N/V intact, incision C/D/I, toes mobile Has staple irritation noted but no erythema otherwise and no drainage. Wound healing well. Date Time Temp Pulse Resp B/P (MAP) Pulse Ox O2 Delivery O2 Flow Rate FiO2 06/10/17 10:27 Room Air 06/10/17 07:30 36.6 72 18 128/73 (91) 90 Room Air 06/10/17 07:15 Room Air 06/09/17 23:17 Room Air 06/09/17 23:17 36.8 78 18 131/75 (93) 91 Room Air 06/09/17 17:57 Room Air 06/09/17 15:32 36.9 81 18 133/84 (100) 94 Room Air Assessment & Plan Assessment: Pt stable POD #11 s/p ORIF left distal femur periprosthetic fracture, chronic left KARTHIK infection on po abx for supression - Plan: -Med management- Hg stable - Plan to dc luciano and steri strip wound -Continue chronic suppression antibiotics cipro PO -DVT prophylaxis- ASA, SCDs - PT/OT- strict nonweightbearing, knee immobilizer when ambulating (difficult given pt's mental status) -D/C planning- DC to longterm facility ([facility]). Continue waiting for approval. Inhouse Planning Pain Management: PO Tylenol, Oxy IR DVT Prophylaxis: TEDs, ASA Discharge Planning Discharge Planning: longterm facility
[2017-06-10 12:33] VITALS: BP 128/72; PULSE 88; TEMP 36.4; O2SAT 93
[2017-06-10 15:44] VITALS: BP 104/69; PULSE 92; TEMP 37; O2SAT 92
[2017-06-10] MEDS: DOCUSATE SODIUM/SENNA 50/8.6MG TAB PO SCH (21:16)
[2017-06-10] MEDS: LORAZEPAM 1 MG TAB PO SCH (21:23)
--- NOTE | 2017-06-10 22:45 | DIAGNOSTIC IMAGING REPORT ---
L FEMUR 2 VIEWS ROUTINE CLINICAL HISTORY: Postop internal fixation of the left femur COMPARISON: 05/29/2017 DISCUSSION: The skin luciano have been removed. There are extensive postsurgical changes involving the left femur. 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 The acetabular screws protrude into the pelvis. There is extensive heterotopic ossification surrounding the proximal left femur. There is a distal metallic plate and left knee arthroplasty. There are multiple cerclage wires. There is an oblique fracture of the distal one third of the femur. Fracture line is less evident when compared the preceding study. IMPRESSION: 1. No significant change in the appearance of the total left hip arthroplasty and left knee arthroplasty. 2. Internally fixated oblique/spiral fracture of the distal femur utilizing a lateral metallic plate and multiple cerclage wires. The fracture line is less evident. 3. Extensive heterotopic ossification adjacent to the proximal left femur Electronically signed by: Benny Viramontes M.D. 06/10/2017 10:44 PM Dictated Date/Time: 06/10/2017 10:41 PM
[2017-06-10 23:25] VITALS: BP 116/74; PULSE 76; TEMP 37.1; O2SAT 95
[2017-06-11] MEDS: ACETAMINOPHEN 500 MG TAB PO SCH ×3 (05:43→21:47)
[2017-06-11] MEDS: PANTOprazole SOD 40 MG TAB PO SCH (09:00)
[2017-06-11] MEDS: ESCITALOPRAM OXALATE 10 MG TAB PO SCH (09:48)
[2017-06-11] MEDS: DOCUSATE SODIUM 100 MG CAP PO SCH ×2 (09:48→21:01)
[2017-06-11] MEDS: ASPIRIN/ALUM/MAGNES/CAL CARB 325 MG TAB PO SCH ×2 (09:49→21:02)
[2017-06-11] MEDS: AMLODIPINE BESYLATE 5 MG TAB PO SCH (09:49)
[2017-06-11] MEDS: FENOFIBRATE 48 MG TAB PO SCH (09:49)
[2017-06-11] MEDS: TAMSULOSIN HCL 0.4 MG CAP PO SCH (09:49)
[2017-06-11] MEDS: ALLOPURINOL 300 MG TAB PO SCH ×2 (09:49→21:02)
[2017-06-11] MEDS: ROSUVASTATIN CALCIUM 10 MG TAB PO SCH (09:49)
[2017-06-11] MEDS: CIPROFLOXACIN 250 MG TAB PO SCH ×2 (09:49→21:02)
[2017-06-11] MEDS: DIVALPROEX SODIUM 250 MG DELAY REL TAB PO SCH ×2 (09:49→21:02)
[2017-06-11] MEDS: ESCITALOPRAM OXALATE 20 MG TAB PO SCH (09:50)
[2017-06-11] MEDS: CHOLECALCIFEROL 1000 INTER.UNIT TAB PO SCH (09:50)
[2017-06-11] MEDS: INSULIN ASPART 100 UNITS/ML 3 ML PEN SC SCH ×4 (09:59→20:59)
--- NOTE | 2017-06-11 10:56 | Orthopedic Progress Note ---
Orthopedic Progress Note Date of Service Jun 11, 2017. Subjective Post OP Day: 13 Reports: feeling well, Denies: complaints Additional Notes: Nursing staff let me know that his LLE wound had opened up a little bit. Pt sleeping upon arrival but easily awoken. Nursing helped to get patient onto his right side so we could examine the wound. Objective calves soft nontender, N/V intact, toes mobile Nursing staff helped me move patient up onto his right side to fully examine the wound. There is a small section in the middle third of the wound that the skin edge appears to have rolled back. There is no drainage, bleeding noted. No obvious subq tissue is noted. Steri strips applied to the area and an ABD dressing placed to cover this section of the wound. No erythema noted. The rest of the wound appears benign. Date Time Temp Pulse Resp B/P (MAP) Pulse Ox O2 Delivery O2 Flow Rate FiO2 06/11/17 00:09 Room Air 06/10/17 23:25 37.1 76 20 116/74 (88) 95 Room Air 06/10/17 16:35 Room Air 06/10/17 15:44 37.0 92 18 104/69 (81) 92 Room Air 06/10/17 12:33 36.4 88 20 128/72 (90) 93 Room Air Assessment & Plan Assessment: Pt stable POD #13 s/p ORIF left distal femur periprosthetic fracture, chronic left KRATHIK infection on po abx for supression - Plan: -Med management- Hg stable - Will watch wound for now. Pt tends to roll a lot putting pressure on his wound. Continue dressing changes. Dr Copeland aware. -Continue chronic suppression antibiotics cipro PO -DVT prophylaxis- ASA, SCDs - PT/OT- strict nonweightbearing, knee immobilizer when ambulating (difficult given pt's mental status) -D/C planning- DC to intermediate facility ([facility]). Continue waiting for approval. Inhouse Planning Pain Management: PO Tylenol, Oxy IR DVT Prophylaxis: TEDs, ASA Discharge Planning Discharge Planning: intermediate facility
[2017-06-11 15:00] VITALS: BP 122/75; PULSE 64; TEMP 36.6; O2SAT 95
[2017-06-11] MEDS ORDERED: NURSING VERBAL MED ORDER ONE (20:15)
[2017-06-11] MEDS: DOCUSATE SODIUM/SENNA 50/8.6MG TAB PO SCH (21:01)
[2017-06-11] MEDS: LORAZEPAM 1 MG TAB PO SCH (21:04)
[2017-06-11 22:55] VITALS: BP 125/77; PULSE 66; TEMP 36.9; O2SAT 93
[2017-06-12] MEDS: ACETAMINOPHEN 500 MG TAB PO SCH ×2 (05:35→13:45)
[2017-06-12 07:30] VITALS: BP 128/81; PULSE 67; TEMP 36.5; O2SAT 95
[2017-06-12] MEDS: ROSUVASTATIN CALCIUM 10 MG TAB PO SCH (08:33)
[2017-06-12] MEDS: ALLOPURINOL 300 MG TAB PO SCH (08:33)
[2017-06-12] MEDS: FENOFIBRATE 48 MG TAB PO SCH (08:33)
[2017-06-12] MEDS: TAMSULOSIN HCL 0.4 MG CAP PO SCH (08:33)
[2017-06-12] MEDS: PANTOprazole SOD 40 MG TAB PO SCH (08:33)
[2017-06-12] MEDS: ESCITALOPRAM OXALATE 10 MG TAB PO SCH (08:33)
[2017-06-12] MEDS: ESCITALOPRAM OXALATE 20 MG TAB PO SCH (08:33)
[2017-06-12] MEDS: DIVALPROEX SODIUM 250 MG DELAY REL TAB PO SCH (08:33)
[2017-06-12] MEDS: CIPROFLOXACIN 250 MG TAB PO SCH (08:34)
[2017-06-12] MEDS: CHOLECALCIFEROL 1000 INTER.UNIT TAB PO SCH (08:34)
[2017-06-12] MEDS: DOCUSATE SODIUM 100 MG CAP PO SCH (08:34)
[2017-06-12] MEDS: ASPIRIN/ALUM/MAGNES/CAL CARB 325 MG TAB PO SCH (08:34)
[2017-06-12 08:35] VITALS: BP 133/80
[2017-06-12] MEDS: AMLODIPINE BESYLATE 5 MG TAB PO SCH (08:35)
--- NOTE | 2017-06-12 09:15 | Orthopedic Progress Note ---
Orthopedic Progress Note Date of Service Jun 12, 2017. Subjective Post OP Day: 14 Reports: feeling well, Denies: complaints, chest pain, calf pain Objective dressing C/D/I, A&O x3, toes mobile again there is a small section in the middle third of the wound that the skin edge appears to have rolled back, there have been steri strips applied and an ABD dressing placed over. there is no surrounding erythema noted. likely small hematoma collection at the most distal aspect of the incision at the knee joint. Date Time Temp Pulse Resp B/P (MAP) Pulse Ox O2 Delivery O2 Flow Rate FiO2 06/12/17 07:30 36.5 67 18 128/81 (97) 95 Room Air 06/11/17 23:42 Room Air 06/11/17 22:55 36.9 66 18 125/77 (93) 93 Room Air 06/11/17 15:35 Room Air 06/11/17 15:00 36.6 64 18 122/75 (91) 95 Room Air 06/11/17 10:00 Room Air Assessment & Plan Assessment: Pt stable POD #14 s/p ORIF left distal femur periprosthetic fracture, chronic left KARTHIK infection on po abx for supression - Plan: -Med management Steri strips were applied to the middle third of incision, cont with daily dressing changes, ABD pad. -Continue chronic suppression antibiotics cipro PO -DVT prophylaxis- ASA, SCDs - PT/OT- strict nonweightbearing, knee immobilizer when ambulating (difficult given pt's mental status) -D/C planning- DC to snf facility ([facility]). Continue waiting for approval. Discharge Planning Discharge Planning: snf facility
[2017-06-12] MEDS: INSULIN ASPART 100 UNITS/ML 3 ML PEN SC SCH ×3 (09:17→18:22)
[2017-06-12 15:10] VITALS: BP 113/67; PULSE 50; TEMP 36.9; O2SAT 95
[2017-06-12 17:18] VITALS: BP 113/67; PULSE 50; TEMP 36.9; O2SAT 95
--- NOTE | 2017-06-13 16:06 | Discharge Summary ---
Orthopedic Discharge Summary Admission Date/Reason May 28, 2017 at 15:41 Left Periprosthetic Distal Femur Fracture. Discharge Date/Disposition Jun 04, 2017 [facility] facility Diagnosis Principal Diagnosis: left periprosthetic distal femur fracture Procedure(s) Performed Open Reduction Internal Fixation Left Distal Periprosthetic Femur Fracture Consultations Dr Carreno - medical management Medication Reconciliation New Medications: Tramadol (Ultram) 50 Mg Tab 50 MG PO Q4H PRN for Pain, #50 TAB Aspirin Buffered (Timothy Carb-Mag (Tri-Buffered Aspirin) 1 Tab Tab 325 MG PO BID for 28 Days, TAB May continue regular dose 81mg ASA once 4 weeks of current dose completed. Continued Medications: Albuterol Inhaler (Ventolin Inhaler) Aers 2 PUFFS INH Q2H PRN for Wheezing Allopurinol (Zyloprim *) 300 Mg Tab 300 MG PO BID Amlodipine (Norvasc) 5 Mg Tab 5 MG PO DAILY Ciprofloxacin Tab (Cipro) 250 Mg Tab 500 MG PO BID, TAB Divalproex Sodium Delay Rel (Depakote Delay Rel *) 250 Mg Tabec 250 MG PO QAM Divalproex Sodium Delay Rel (Depakote Delay Rel *) 250 Mg Tabec 500 MG PO HS Escitalopram (Lexapro) 10 Mg Tab 10 MG PO DAILY 30MG TOTAL Escitalopram Oxalate (Lexapro) 20 Mg Tab 20 MG PO DAILY 30MG TOTAL Fenofibrate (Tricor) 48 Mg Tab 48 MG PO DAILY Indomethacin (Indomethacin) 25 Mg Cap 50 MG PO TID PRN for GOUT Iron-Vitamin C (Vitron-C) 1 Tab Tab 1 TAB PO QAM Ketoconazole (Topical) (Nizoral A-D) 1 % Sha 1 APPLN TOP Q72H Lorazepam (Ativan *) 1 Mg Tab 1 MG PO HS Omeprazole (Prilosec) 20 Mg Capcr 40 MG PO QAM, CAP Rosuvastatin Calcium (Crestor *) 10 Mg Tab 10 MG PO DAILY Tamsulosin Hcl (Flomax) 0.4 Mg Cap 1 CAP PO DAILY Discontinued Medications: Aspirin (Aspirin Ec) 81 Mg Tab 81 MG PO DAILY Admission Physical Exam As per Admitting History & Physical. Hospital Course The patient is a 66-year-old male who presented after sustaining an injury to his left lower extremity after a fall. He has a significant past medical history which includes previous revision surgery of his left total hip and subsequent chronic infection which has been treated with suppressive antibiotics and followed by Dr. Ewing in [facility]. The patient is cognitively impaired and a poor historian however pleasant and was accompanied by his family members who provided a majority of the past medical history and story. He was then admitted on 05/29/17 and underwent open reduction internal fixation left distal periprosthetic femur fracture. of note, during his hospital stay he did require a transfusion of 2 units PRBCs for post op anemia. His hospital stay had been lengthened due to finding the appropriate facility to assist in his care since he would not be able to care for himself. After exam on 06/12/17, patient felt acceptable for discharge to intermediate facility. please refer to daily progress notes for complete details. below are pertinent labs/studies to his hospital stay: Last Resulted CBC 06/02/17 05:40 Last Resulted BMP 06/02/17 05:40 Last Vital Signs Documentation Date Time Temp Pulse Resp B/P (MAP) Pulse Ox O2 Delivery O2 Flow Rate FiO2 06/12/17 17:18 36.9 50 16 95 Room Air 06/12/17 15:10 113/67 (82) 06/01/17 07:15 2.0 05/30/17 00:35 92 Discharge Instructions Discharge Instructions Date of Service Jun 04, 2017. Admission Reason for Admission: Left Periprosthetic Distal Femur Fracture Discharge Discharge Diagnosis / Problem: Left distal periprosthetic femur fracture Discharge Goals Goal(s): Decrease discomfort, Improve function, Increase independence Activity Recommendations Activity Limitations: as noted below Exercise/Sports Limitations: until after follow-up appointment Shower/Bathe: keep incision dry Weightbearing Status: Left non-weightbearing No weight bearing left lower extremity . Instructions / Follow-Up Instructions / Follow-Up [facility] DISCHARGE INSTRUCTIONS: HIP FRACTURE SELF CARE INSTRUCTIONS: A. You are to ambulate with a walker or crutches for approximately 6 weeks. B. You are NON- WEIGHT BEARING on your operative lower extremity for at least 6 weeks. C. Wear low heeled shoes with non-slip soles D. Be sure that your floors are free of things that could trip you throw rugs, electrical cords, and small objects. Avoid wet and waxed floors, especially with crutches/walker/cane. E. Try to walk several times a day with rest periods between. F. You may shower 48 hours after surgery and get the incision area wet, but DO NOT soak or submerge incision area in water. (No baths, swimming pools, hot tubs ) G. You may have a large, band-aid like dressing over your incision. This will remain on your incision for 7 days, and then can be removed. You CAN shower with this on. If incision is leaking through the dressing, please call the office . H. Do NOT apply soap or any ointment/lotions directly over incision. I. You may use ice as needed to operative site. SPECIAL CARE INSTRUCTIONS: VERY IMPORTANT TO READ AND REVIEW A. You may be at risk for phlebitis or blood clots. a. Wear surgical stockings (KRYSTAL hose) for 2 weeks after surgery to improve circulation and reduce swelling. b. Take ASPIRIN 325 mg twice daily for 4 weeks or as directed. This is your blood thinner. You may continue your regular dose of Aspirin 81mg once you've completed 4 weeks of Aspirin 325mg twice daily. c. If you are on Coumadin- you will have daily/weekly blood work to monitor your levels. This will be done by either your family physician/ rat culturist (if you are on Coumadin chronically) versus your orthopedic surgeon. Expect a phone call the day of or the day after your blood work is drawn to adjust your dose accordingly. B. There are a few signs you need to watch for after you are home. Call [facility] at [phone] if you experience any of the following: a. If you have a temperature of 101 degrees or higher. b. Sudden increase in pain in your hip not relieved by rest or pain medication. c. Any fluid or drainage from the incision; redness of the incision. d. Shortness of breath or chest pain. B. Please call [facility] at [phone] if you have any questions or concerns about your operation or recovery. C. Call your physician if: a. Temperature is greater than 101 degrees (F). b. Pain is not relieved by prescribed pain medications. c. Increase drainage or redness from incision. d. Unanswered questions or concerns. D. Pain Medication: a. You will be prescribed pain medication upon discharge that should last till your first post-operative appointment. b. If you experience nausea and/or skin rash, discontinue this medication and contact our office for an alternative medication. c. Caution- narcotic pain medication can cause constipation. FOLLOW UP VISIT: Please call [facility] at [phone] to schedule a follow up appointment 10-14 days from the date of your surgery date. Current Hospital Diet Patient's current hospital diet: Diabetes Type 2 Diet Discharge Diet Recommended Diet: Diabetes Type 2 Diet Procedures Procedures Performed: Open Reduction Internal Fixation Left Distal Periprosthetic Femur Fracture Pending Studies Studies pending at discharge: no Laboratory Results Hemoglobin A1c Test 05/29/17 05:26 Range/Units Estimated Average Glucose 140 mg/dl Hemoglobin A1c 6.5 H 4.5-5.6 % Medical Emergencies . Who to Call and When: Medical Emergencies: If at any time you feel your situation is an emergency, please call 911 immediately. . Non-Emergent Contact Non-Emergency issues call your: Primary Care Provider Call Non-Emergent contact if: you have a fever, temperature is above 100.5, temperature is above 101, temperature is above 101.5, your pain is not controlled, your pain is worsening, your pain is unusual for you, your pain is concerning you, wound has increased drainage, wound has increased redness, wound has increased pain, you have any medication questions . "Provider Documentation" section prepared by Chris Copeland. . VTE Core Measure Inpt VTE Proph given/why not?: Other Anticoagulation, SCD's [place] Drug Monitoring Program Search Results: patient reviewed within database <Electronically signed by Chris Copeland D.O.> Signed: 06/04/17 6305 Signed: The status of this report is Signed * If report status is Draft, the document has not been finalized by the responsible provider. Addendum: 06/10/17 2150 Addendum: Chris Copeland D.O. on 06/10/17 @ 21:50 Discharge Inst - Addendum Addendum Notes: The 2 week follow up visit done in the hospital during the patients hospital stay. Call the office to schedule follow up visit 4 weeks after discharge, this will be 6 weeks after the date of surgery. May shower, do not remove steri-strips. They will fall off on their own. Maintain strict non weight bearing on left lower extremity. Addendum Provider: Addendum Notes were documented by provider Chris Copeland.
== END 2017-06-12 19:33 | DRG 481 ==
LOC: C.EDB 12:02 → C.MSN 15:41 → ENRESERV 15:52
PROVIDERS: ADMIT Orthopaedic Surgery Sports Medicine; ATTEND Orthopaedic Surgery Sports Medicine
PROC: 0QSC34Z Reposition Left Lower Femur with Internal Fixation Device, Percutaneous Approach (ICD-10-PCS; principal; 2017-05-29 12:45)
DX: S79.102A Unspecified physeal fracture of lower end of left femur, initial encounter for closed fracture (principal); D62 Acute posthemorrhagic anemia; I10 Essential (primary) hypertension; F79 Unspecified intellectual disabilities; G40.909 Epilepsy, unspecified, not intractable, without status epilepticus; E78.00 Pure hypercholesterolemia, unspecified; K21.9 Gastro-esophageal reflux disease without esophagitis; Z96.652 Presence of left artificial knee joint; Z79.82 Long term (current) use of aspirin; Z96.643 Presence of artificial hip joint, bilateral; W18.2XXA Fall in (into) shower or empty bathtub, initial encounter

== ENCOUNTER 2020-12-22 15:22 | Observation (INO) ==
[2020-12-22] MEDS ORDERED: ACETAMINOPHEN 1,000 MG/100 ML VIAL IV STA (15:48)
[2020-12-22] MEDS ORDERED: SODIUM CHLORIDE 0.9% 500 ML IV ONE (15:48)
[2020-12-22] MEDS ORDERED: ALBUT/IPRATROP 3MG/0.5MG NEB 3 ML VIAL NEB STA (15:52)
--- NOTE | 2020-12-22 16:25 | Emergency Department Note ---
Impression & Plan Closed rib fracture, Change in mental status, Hypomagnesemia ED Provider Note NAME: ZAYRA MICHAEL AGE: 69 SEX: M ARRIVES VIA: Ambulance INFORMANT: Patient, ED PROVIDER(S): Reid Gonzalez MD CHIEF COMPLAINT: Confusion, weakness, sob PLAN: Disposition: Admit MEDICAL DECISION MAKING: The patient is a pleasant 69-year-old gentleman with a past medical history of developmental delay who presents from home to the emergency department with concern for worsening confusion and shortness of breath after being seen in the emergency department on 12/17 for a mechanical fall where he was found to have acute rib fractures the left seventh, eighth and ninth ribs laterally. The family preferred to take the patient home as this was the patient's preference as well and were provided with return instructions incentive spirometer and and oxycodone for breakthrough pain. Or, his symptoms have been worsening and so EMS was called to the home to bring the patient to emergency department. There is no report of fevers, nausea, vomiting, diarrhea or urinary symptoms. On arrival the patient is in no acute distress, afebrile with blood pressure 180s/80s and vital signs otherwise stable. O2 saturation was 95% on room air. Lungs with a scant intermittent wheeze and is otherwise clear. He has no significant tenderness to palpation of the left lateral chest wall. He complains of pain of the left knee where he had a superficial ulceration but is able to bend the knee without significant pain. Abdomen is benign. EKG without overt acute ischemia. Chest x-ray with nonspecific mediastinal thickening as well as left basilar opacity. WBC and platelets within normal limits./H 11.8/35.7 approximate to recent value. Glucose is elevated in the 200s however chemistry without metabolic acidosis. Magnesium 1.7 with repletion provided. LFTs are unremarkable. Troponin negative/undetectable. BNP within normal limits. Lipase not elevated. UA with out convincing evidence of infection. COVID-19 PCR was negative. Depakote level is not elevated. Upon further discussion with the patient's sisters who care for the patient at home they are concerned that the patient is not at his baseline. We did discuss that this is likely related to the effects of his oxycodone which can cause drowsiness and confusion. We discussed discontinuing this but they were concerned about management of his pain as well. Thus, we did agree to proceed with admission for further management of pain related to his rib fractures as well as further monitoring of his confusion/ams from baseline. Case was discussed with REINALDO Freitas hospitalist, who will evaluate the patient for admission. Triage Nursing notes reviewed and agree them. Additional history obtained from Prior medical records reviewed Vital Signs: reviewed and remarkable for no significant abnormalities Differential diagnosis: Infection, dehydration, metabolic abnormality, hypo/hyperglycemia, electrolyte disturbance, anemia, hypoxia, cardiac sources, intracerebral event, toxicologic, neurologic, as well as other pathologies. ER treatment provided: See below. Diagnostics interpreted by me: ECG: Sinus rhythm with first-degree AV block, 81 bpm, no ectopy, no overt ST elevation or depression, QTC 446, QRS 90. Cardiac Monitoring: An order for continuous cardiac monitoring was placed and demonstrated sinus rhythm, 81 bpm, no ectopy. Laboratory studies: See below Imaging studies: See below Consultation(s): Case was discussed with REINALDO Freitas hospitalist, who will evaluate the patient for admission. HPI: The patient is a pleasant 69-year-old gentleman with a past medical history of developmental delay who presents from home to the emergency department with concern for worsening confusion and shortness of breath after being seen in the emergency department on 12/17 for a mechanical fall where he was found to have acute rib fractures the left seventh, eighth and ninth ribs laterally. The family preferred to take the patient home as this was the patient's preference as well and were provided with return instructions incentive spirometer and and oxycodone for breakthrough pain. Or, his symptoms have been worsening and so EMS was called to the home to bring the patient to emergency department. There is no report of fevers, nausea, vomiting, diarrhea or urinary symptoms. ROS: See above HPI for pertinent positives & negatives. A total of 10 systems re viewed and were otherwise negative. PAST MEDICAL HISTORY:See Below PAST SURGICAL HISTORY:See Below FAMILY HISTORY:See Below SOCIAL HISTORY:See Below HOME MEDICATIONS:See Below ALLERGIES:See Below VITALS:See Below PHYSICAL EXAMINATION: GENERAL: Awake, alert, well-appearing, in no distress HENT: Normocephalic, atraumatic. Oropharynx with dry mucous membranes and otherwise unremarkable. EYES: Normal conjunctiva. Sclera non-icteric. NECK: Supple. No nuchal rigidity. FROM. No JVD. RESPIRATORY: Scant intermittent wheeze otherwise clear. CARDIAC: Regular rate, normal rhythm. Extremities warm and well perfused. Pulses equal. ABDOMEN: Soft, non-distended. No tenderness to palpation. No rebound or guarding. No masses. RECTAL: Deferred. MUSCULOSKELETAL: Chest examination reveals no tenderness. The back is symmetrical on inspection without obvious abnormality. There is no CVA tenderne ss to palpation. No joint edema. Mild discomfort of superficial skin ulcer of left knee. Full range of motion intact. Distal PMS intact. LOWER EXTREMITIES: Calves are equal size bilaterally and non-tender. No edema. No discoloration. NEURO: No focal sensory or motor deficits noted. Slightly garbled and dysarthric speech near baseline. SKIN: No rash or jaundice noted. Reid Gonzalez MD Past Med/Surg History Medical History (Updated 12/23/20 @ 01:51 by Braydon Leahy MD) Anxiety with depression BPH w urinary obs/LUTS Closed rib fracture Diabetes mellitus Dyslipidemia GERD (gastroesophageal reflux disease) Gout Mental retardation Seizure disorder Family History (Updated 12/22/20 @ 23:48 by Reid Gonzalez MD) Other Family history non-contributory Social History (System 01/11/20 @ 13:51 by Ly Nieves) Smoking Status: Never smoker Hx Alcohol Use: No Hx Substance Use: No Preferred Language: Lebanese Communication Ability: Impaired Communication Ability Comment: Hard to understand Gang Punch Operator Required: No Beliefs That Will Affect Care: None Current Living Situation: Legal Guardian Current Living Situation Comment: lives with sister Martha Michael Other Information That Helps Us Care for You: No Feels Safe at Home: Yes Safety Concerns: Feels Safe At This Time Assistive Devices: Walker Allergies Allergies Allergy/AdvReac Type Severity Reaction Status Date / Time bee venom protein (honey bee) Allergy Unknown RASH Verified 12/22/20 16:19 Penicillins Allergy Unknown RASH Verified 12/22/20 16:19 Home Meds Home Medications Medication Instructions Recorded Confirmed allopurinol 300 mg PO QAM 12/17/20 12/22/20 amlodipine 5 mg PO QAM 12/17/20 12/22/20 aspirin 81 mg PO QAM 12/17/20 12/22/20 ciprofloxacin HCl 500 mg PO BID 12/17/20 12/22/20 divalproex See Rx Instructions .ROUTE .COMPLEX 12/17/20 12/22/20 escitalopram oxalate 10 mg PO QAM 12/17/20 12/22/20 escitalopram oxalate 20 mg PO QPM 12/17/20 12/22/20 fenofibrate nanocrystallized 48 mg PO QPM 12/17/20 12/22/20 ferrous fumarate-vitamin C 1 tab PO QAM 12/17/20 12/22/20 [[id number]] ketoconazole 1 ea TOPICAL [id number] 12/17/20 12/22/20 metformin 500 mg PO QDD 12/17/20 12/22/20 multivitamin with minerals 1 tab PO QAM 12/17/20 12/22/20 omeprazole 20 mg PO QAM 12/17/20 12/22/20 rosuvastatin 10 mg PO QPM 12/17/20 12/22/20 tamsulosin 0.4 mg PO QAM 12/17/20 12/22/20 triamcinolone acetonide 1 applic TOPICAL BID 12/17/20 12/22/20 triamterene-hydrochlorothiazid 1 tab PO DAILY PRN 12/17/20 12/22/20 Previous Rx's Medication Instructions Recorded oxycodone 5 mg PO Q6H PRN #10 tab 12/17/20 Results & Data (ED) Vital Signs Vital Signs - 24 hr 12/22/20 15:12 12/22/20 15:30 12/22/20 15:31 Temperature 36.9 C Temperature Source Oral Pulse Rate 86 82 Pulse Rate [Right Finger] Pulse Rate from SpO2 Sensor 90 Pulse Rhythm Regular Pulse Strength Normal Respiratory Rate 16 20 Respiratory Effort / Characteristics Respiratory Depth Normal Blood Pressure 182/86 H 182/86 H Blood Pressure Mean 118 118 Pulse Oximetry 98 95 95 Oxygen Delivery Method Room Air Room Air Sepsis New/Unexplained Change in Mental Status Yes Sepsis Action Taken by Nursing No Action Required 12/22/20 15:38 12/22/20 15:45 12/22/20 16:00 Temperature Temperature Source Pulse Rate 78 89 76 Pulse Rate [Right Finger] Pulse Rate from SpO2 Sensor 79 84 77 Pulse Rhythm Pulse Strength Respiratory Rate 21 20 20 Respiratory Effort / Characteristics Respiratory Depth Blood Pressure Blood Pressure Mean Pulse Oximetry 93 94 91 Oxygen Delivery Method Sepsis New/Unexplained Change in Mental Status Sepsis Action Taken by Nursing 12/22/20 16:15 12/22/20 16:24 12/22/20 16:57 Temperature Temperature Source Pulse Rate 75 72 Pulse Rate [Right Finger] 67 Pulse Rate from SpO2 Sensor 74 Pulse Rhythm Pulse Strength Respiratory Rate 21 20 Respiratory Effort / Characteristics Non-Labored Spontaneous Respiratory Depth Blood Pressure Blood Pressure Mean Pulse Oximetry 95 98 Oxygen Delivery Method Room Air Sepsis New/Unexplained Change in Mental Status Sepsis Action Taken by Nursing 12/22/20 17:00 12/22/20 17:15 12/22/20 17:30 Temperature Temperature Source Pulse Rate 73 73 71 Pulse Rate [Right Finger] Pulse Rate from SpO2 Sensor Pulse Rhythm Pulse Strength Respiratory Rate 19 26 H 24 Respiratory Effort / Characteristics Respiratory Depth Blood Pressure Blood Pressure Mean Pulse Oximetry Oxygen Delivery Method Sepsis New/Unexplained Change in Mental Status Sepsis Action Taken by Nursing 12/22/20 17:45 12/22/20 17:48 12/22/20 18:00 Temperature Temperature Source Pulse Rate 75 69 Pulse Rate [Right Finger] Pulse Rate from SpO2 Sensor 74 69 Pulse Rhythm Pulse Strength Respiratory Rate 25 H 23 21 Respiratory Effort / Characteristics Respiratory Depth Blood Pressure 162/91 H Blood Pressure Mean 114 Pulse Oximetry 93 94 Oxygen Delivery Method Sepsis New/Unexplained Change in Mental Status Sepsis Action Taken by Nursing 12/22/20 18:01 12/22/20 18:15 12/22/20 18:16 Temperature Temperature Source Pulse Rate 72 75 75 Pulse Rate [Right Finger] Pulse Rate from SpO2 Sensor 72 75 74 Pulse Rhythm Pulse Strength Respiratory Rate 22 24 20 Respiratory Effort / Characteristics Respiratory Depth Blood Pressure 130/80 128/81 Blood Pressure Mean 96 96 Pulse Oximetry 91 94 91 Oxygen Delivery Method Sepsis New/Unexplained Change in Mental Status Sepsis Action Taken by Nursing 12/22/20 18:30 12/22/20 18:45 12/22/20 19:00 Temperature Temperature Source Pulse Rate 79 73 68 Pulse Rate [Right Finger] Pulse Rate from SpO2 Sensor 79 72 68 Pulse Rhythm Pulse Strength Respiratory Rate 16 19 18 Respiratory Effort / Characteristics Respiratory Depth Blood Pressure 147/66 H 135/79 139/101 H Blood Pressure Mean 93 97 113 Pulse Oximetry 92 91 95 Oxygen Delivery Method Room Air Sepsis New/Unexplained Change in Mental Status Sepsis Action Taken by Nursing 12/22/20 19:15 12/22/20 19:16 12/22/20 19:30 Temperature Temperature Source Pulse Rate 81 69 70 Pulse Rate [Right Finger] Pulse Rate from SpO2 Sensor 83 70 Pulse Rhythm Pulse Strength Respiratory Rate 18 16 24 Respiratory Effort / Characteristics Respiratory Depth Blood Pressure 151/78 H Blood Pressure Mean 102 Pulse Oximetry 96 93 Oxygen Delivery Method Room Air Room Air Sepsis New/Unexplained Change in Mental Status Sepsis Action Taken by Nursing 12/22/20 19:31 12/22/20 19:45 12/22/20 20:00 Temperature Temperature Source Pulse Rate 72 69 70 Pulse Rate [Right Finger] Pulse Rate from SpO2 Sensor Pulse Rhythm Pulse Strength Respiratory Rate 20 23 17 Respiratory Effort / Characteristics Respiratory Depth Blood Pressure 147/74 H Blood Pressure Mean 98 Pulse Oximetry Oxygen Delivery Method Sepsis New/Unexplained Change in Mental Status Sepsis Action Taken by Nursing 12/22/20 20:15 12/22/20 20:30 12/22/20 21:16 Temperature Temperature Source Pulse Rate 74 73 72 Pulse Rate [Right Finger] Pulse Rate from SpO2 Sensor Pulse Rhythm Pulse Strength Respiratory Rate 21 23 Respiratory Effort / Characteristics Respiratory Depth Blood Pressure Blood Pressure Mean Pulse Oximetry Oxygen Delivery Method Sepsis New/Unexplained Change in Mental Status Sepsis Action Taken by Nursing 12/22/20 21:30 12/22/20 21:45 12/22/20 22:00 Temperature Temperature Source Pulse Rate 73 76 78 Pulse Rate [Right Finger] Pulse Rate from SpO2 Sensor 72 77 76 Pulse Rhythm Pulse Strength Respiratory Rate 22 29 H 25 H Respiratory Effort / Characteristics Respiratory Depth Blood Pressure 137/103 H 133/77 Blood Pressure Mean 114 95 Pulse Oximetry 92 90 92 Oxygen Delivery Method Room Air Sepsis New/Unexplained Change in Mental Status Sepsis Action Taken by Nursing 12/22/20 22:01 Temperature Temperature Source Pulse Rate 78 Pulse Rate [Right Finger] Pulse Rate from SpO2 Sensor 79 Pulse Rhythm Pulse Strength Respiratory Rate 20 Respiratory Effort / Characteristics Respiratory Depth Blood Pressure 112/78 Blood Pressure Mean 89 Pulse Oximetry 91 Oxygen Delivery Method Room Air Sepsis New/Unexplained Change in Mental Status Sepsis Action Taken by Nursing Laboratory Data Attestation: I reviewed the patient's lab results. Result diagrams: 12/22/20 16:23 12/22/20 16:23 Lab Results 12/22/20 12/22/20 12/22/20 Range/Units 15:42 16:09 16:09 WBC (4.8-10.8) K/uL RBC (4.7-6.1) M/uL Hgb (14.0-18.0) g/dL Hct (42-52) % MCV (80-100) fL MCH (25-34) pg MCHC (32-36) g/dL RDW Std Deviation (36.4-46.3) fL RDW Coeff of Hortens[place] (11.5-14.5) % Plt Count (130-400) K/uL MPV (7.4-10.4) fL Immature Gran % (Auto) % Neut % (Auto) % Lymph % (Auto) % [place] % (Auto) % Eos % (Auto) % Baso % (Auto) % Neut # (Auto) (1.4-6.5) K/uL Lymph # (Auto) (1.2-3.4) K/uL [place] # (Auto) (0.11-0.59) K/uL Eos # (Auto) (0-0.5) K/uL Baso # (Auto) (0-0.2) K/uL Immature Gran # (Auto) (0.00-0.02) K/uL PT (9.0-12.0) Seconds INR (0.9-1.1) APTT (21.0-31.0) Seconds PTT Ratio Sodium (136-145) mmol/L Potassium (3.5-5.1) mmol/L Chloride (98-107) mmol/L Carbon Dioxide (21-32) mmol/L Anion Gap (3-11) BUN (7-18) mg/dl Creatinine (0.6-1.4) mg/dl Est Cr Clr Drug Dosing ml/min Est GFR ( Amer) ml/min Est GFR (Non-Af Amer) ml/min BUN/Creatinine Ratio (10-20) Glucose (70-99) mg/dl POC Glucose 243 H (70-99) mg/dl Calcium (8.5-10.1) mg/dl Phosphorus (2.5-4.9) mg/dl Magnesium (1.8-2.4) mg/dl Total Bilirubin (0.2-1) mg/dl Direct Bilirubin (0-0.2) mg/dl AST (15-37) U/L ALT (12-78) U/L Alkaline Phosphatase (45-117) U/L Ammonia (11-32) umol/L Total Creatine Kinase (39-308) U/L Troponin I (0-0.045) ng/ml NT-Pro-B Natriuret Pep (0-900) pg/ml Total Protein (6.4-8.2) gm/dl Albumin (3.4-5.0) gm/dl Globulin (2.5-4.0) gm/dl Albumin/Globulin Ratio (0.9-2) Lipase (73-393) U/L Urine Color Urine Appearance (Clear) Urine pH (4.5-7.5) Ur Specific [place] (1.000-1.030) Urine Protein (Negative) Urine Glucose (UA) (Negative) Urine Ketones (Negative) Urine Blood (Negative) Urine Nitrite (Negative) Urine Bilirubin (Negative) Urine Urobilinogen (Negative) Ur Leukocyte Esterase (Negative) Valproic Acid (50-100) mcg/ml COVID-19 Eval Order Covid19 at [facility] SARS-CoV-2 (PCR) NEGATIVE (Negative) 12/22/20 12/22/20 12/22/20 Range/Units 16:23 16:23 16:23 WBC 6.15 (4.8-10.8) K/uL RBC 4.45 L (4.7-6.1) M/uL Hgb 11.8 L (14.0-18.0) g/dL Hct 35.7 L (42-52) % MCV 80.2 (80-100) fL MCH 26.5 (25-34) pg MCHC 33.1 (32-36) g/dL RDW Std Deviation 44.5 (36.4-46.3) fL RDW Coeff of Hortensia 15.1 H (11.5-14.5) % Plt Count 298 (130-400) K/uL MPV 9.0 (7.4-10.4) fL Immature Gran % (Auto) 0.2 % Neut % (Auto) 70.2 % Lymph % (Auto) 11.7 % [place] % (Auto) 12.2 % Eos % (Auto) 5.5 % Baso % (Auto) 0.2 % Neut # (Auto) 4.32 (1.4-6.5) K/uL Lymph # (Auto) 0.72 L (1.2-3.4) K/uL [place] # (Auto) 0.75 H (0.11-0.59) K/uL Eos # (Auto) 0.34 (0-0.5) K/uL Baso # (Auto) 0.01 (0-0.2) K/uL Immature Gran # (Auto) 0.01 (0.00-0.02) K/uL PT 10.6 (9.0-12.0) Seconds INR 1.0 (0.9-1.1) APTT 28.6 (21.0-31.0) Seconds PTT Ratio 1.1 Sodium 136 (136-145) mmol/L Potassium 3.8 (3.5-5.1) mmol/L Chloride 103 (98-107) mmol/L Carbon Dioxide 24 (21-32) mmol/L Anion Gap 9.0 (3-11) BUN 27 H (7-18) mg/dl Creatinine 0.86 (0.6-1.4) mg/dl Est Cr Clr Drug Dosing 107.8 ml/min Est GFR ( Amer) 102.5 ml/min Est GFR (Non-Af Amer) 88.5 ml/min BUN/Creatinine Ratio 31.0 H (10-20) Glucose 227 H (70-99) mg/dl POC Glucose (70-99) mg/dl Calcium 8.7 (8.5-10.1) mg/dl Phosphorus 2.9 (2.5-4.9) mg/dl Magnesium 1.7 L (1.8-2.4) mg/dl Total Bilirubin 0.3 (0.2-1) mg/dl Direct Bilirubin < 0.1 (0-0.2) mg/dl AST 8 L (15-37) U/L ALT 19 (12-78) U/L Alkaline Phosphatase 63 (45-117) U/L Ammonia (11-32) umol/L Total Creatine Kinase 205 (39-308) U/L Troponin I < 0.015 (0-0.045) ng/ml NT-Pro-B Natriuret Pep 83 (0-900) pg/ml Total Protein 6.9 (6.4-8.2) gm/dl Albumin 3.0 L (3.4-5.0) gm/dl Globulin 3.9 (2.5-4.0) gm/dl Albumin/Globulin Ratio 0.8 L (0.9-2) Lipase 64 L (73-393) U/L Urine Color Urine Appearance (Clear) Urine pH (4.5-7.5) Ur Specific [place] (1.000-1.030) Urine Protein (Negative) Urine Glucose (UA) (Negative) Urine Ketones (Negative) Urine Blood (Negative) Urine Nitrite (Negative) Urine Bilirubin (Negative) Urine Urobilinogen (Negative) Ur Leukocyte Esterase (Negative) Valproic Acid (50-100) mcg/ml COVID-19 Eval Order SARS-CoV-2 (PCR) (Negative) 12/22/20 12/22/20 12/22/20 Range/Units 17:56 19:39 19:39 WBC (4.8-10.8) K/uL RBC (4.7-6.1) M/uL Hgb (14.0-18.0) g/dL Hct (42-52) % MCV (80-100) fL MCH (25-34) pg MCHC (32-36) g/dL RDW Std Deviation (36.4-46.3) fL RDW Coeff of Hortensia (11.5-14.5) % Plt Count (130-400) K/uL MPV (7.4-10.4) fL Immature Gran % (Auto) % Neut % (Auto) % Lymph % (Auto) % [place] % (Auto) % Eos % (Auto) % Baso % (Auto) % Neut # (Auto) (1.4-6.5) K/uL Lymph # (Auto) (1.2-3.4) K/uL [place] # (Auto) (0.11-0.59) K/uL Eos # (Auto) (0-0.5) K/uL Baso # (Auto) (0-0.2) K/uL Immature Gran # (Auto) (0.00-0.02) K/uL PT (9.0-12.0) Seconds INR (0.9-1.1) APTT (21.0-31.0) Seconds PTT Ratio Sodium (136-145) mmol/L Potassium (3.5-5.1) mmol/L Chloride (98-107) mmol/L Carbon Dioxide (21-32) mmol/L Anion Gap (3-11) BUN (7-18) mg/dl Creatinine (0.6-1.4) mg/dl Est Cr Clr Drug Dosing ml/min Est GFR ( Amer) ml/min Est GFR (Non-Af Amer) ml/min BUN/Creatinine Ratio (10-20) Glucose (70-99) mg/dl POC Glucose (70-99) mg/dl Calcium (8.5-10.1) mg/dl Phosphorus (2.5-4.9) mg/dl Magnesium (1.8-2.4) mg/dl Total Bilirubin (0.2-1) mg/dl Direct Bilirubin (0-0.2) mg/dl AST (15-37) U/L ALT (12-78) U/L Alkaline Phosphatase (45-117) U/L Ammonia 19.7 (11-32) umol/L Total Creatine Kinase (39-308) U/L Troponin I (0-0.045) ng/ml NT-Pro-B Natriuret Pep (0-900) pg/ml Total Protein (6.4-8.2) gm/dl Albumin (3.4-5.0) gm/dl Globulin (2.5-4.0) gm/dl Albumin/Globulin Ratio (0.9-2) Lipase (73-393) U/L Urine Color Yellow Urine Appearance Clear (Clear) Urine pH 5.0 (4.5-7.5) Ur Specific [place] 1.020 (1.000-1.030) Urine Protein Negative (Negative) Urine Glucose (UA) Negative (Negative) Urine Ketones Negative (Negative) Urine Blood Negative (Negative) Urine Nitrite Negative (Negative) Urine Bilirubin Negative (Negative) Urine Urobilinogen Negative (Negative) Ur Leukocyte Esterase Negative (Negative) Valproic Acid 21 L (50-100) mcg/ml COVID-19 Eval Order SARS-CoV-2 (PCR) (Negative) Administered Medications Acetaminophen (Acetaminophen 325 Mg Tab) 650 mg PO Q4H PRN PRN Reason: Pain or Fever Stop: 01/22/21 00:09 Last Admin: 12/23/20 01:05 Dose: 650 mg Documented by: [id number] Miscellaneous (Remove Lidoderm Patch) 1 ea N/A DAILY@2100 AMAN Stop: 01/21/21 20:59 Last Admin: 12/23/20 00:29 Dose: 1 ea Documented by: [id number] Ondansetron HCl (Ondansetron Inj 2 Mg/Ml 2 Ml Vial) 4 mg IV Q6H PRN PRN Reason: Nausea Stop: 01/22/21 00:09 Last Admin: 12/23/20 02:30 Dose: 4 mg Documented by: [id number] Discontinued Medications Albuterol (Albut/Ipratrop 3mg/0.5mg Neb 3 Ml Vial) 3 ml NEB NOW STA Stop: 12/22/20 15:53 Last Admin: 12/22/20 16:23 Dose: 3 ml Documented by: [id number] Sodium Chloride (Nss) 500 mls @ 999 mls/hr IV .Q31M ONE Stop: 12/22/20 16:18 Last Infusion: 12/22/20 16:40 Dose: 0 mls/hr Documented by: [id number] Admin: 12/22/20 16:07 Dose: 999 mls/hr Documented by: [id number] Acetaminophen (Ofirmev) 1,000 mg in 100 mls @ 400 mls/hr IV NOW STA Stop: 12/22/20 16:02 Last Infusion: 12/22/20 16:40 Dose: 0 mls/hr Documented by: [id number] Admin: 12/22/20 16:07 Dose: 400 mls/hr Documented by: [id number] Magnesium Sulfate/Dextrose (Magnesium Sulfate / D5w) 1 gm in 100 mls @ 100 mls/hr IV NOW STA Stop: 12/22/20 18:38 Last Infusion: 12/22/20 19:13 Dose: 0 mls/hr Documented by: [id number] Admin: 12/22/20 17:42 Dose: 100 mls/hr Documented by: [id number] Lidocaine (Lidocaine 5% 1 Patch) 1 patch TD NOW STA Stop: 12/22/20 18:53 Last Admin: 12/22/20 19:17 Dose: 1 patch Documented by: [id number] Imaging Data Radiologist's Impression: Head CT 12/22/20 15:48 CT SCAN OF THE BRAIN WITHOUT IV CONTRAST CLINICAL HISTORY: Change in mental status. Fall. COMPARISON STUDY: CT of the brain dated 12/17/2020. TECHNIQUE: Unenhanced axial CT scan of the brain is performed from the vertex to the skull base. A dose lowering technique was utilized adhering to the principles of ALARA. The skull base was scanned twice due to motion artifact. CT DOSE: 1031.85 mGy.cm FINDINGS: Brain parenchyma: There are age-related involutional changes noting mild subcortical and periventricular microangiopathic change. There is no hemorrhage, mass effect, or evidence of acute territorial ischemia by CT criteria. Godinez- white matter differentiation is preserved. No extra-axial fluid collection is seen. Ventricles, sulci, cisterns: Prominent secondary to involutional change. Intracranial vasculature: There is atherosclerotic calcification of the cavernous carotid and vertebral arteries. Calvarium: The skeletal structures are osteopenic. No depressed calvarial fracture is identified. Sinuses and mastoids: Trace mucosal thickening is noted in the right maxillary antrum. The remaining paranasal sinuses are clear. The mastoid air cells are well pneumatized. Orbits: The bony orbits are grossly intact. IMPRESSION: There is no hemorrhage, mass effect, or evidence of acute territorial ischemia by CT criteria. ACT 112: Negative or not required by law. Electronically signed by: Delvis Olson M.D. 12/22/2020 4:57 PM Chest X-Ray 12/22/20 15:50 XR chest 1V portable CLINICAL HISTORY: Atypical chest pain COMPARISON STUDY: 05/28/2017 FINDINGS: The heart is enlarged. There is mediastinal prominence, likely vascular. There is aortic tortuosity/ectasia. There is mild pulmonary vascular congestion. There are left basilar opacities, likely atelectatic. Clinical and radiographic follow-up are recommended.[ IMPRESSION: 1. Cardiomegaly and radiographic evidence of mild congestive failure/fluid overload 2. Mediastinal widening, likely vascular. There is aortic tortuosity/ectasia 3. Left basilar opacities, statistically atelectatic 4. Clinical and radiographic follow-up are recommended ACT 112: Negative or not required by law. Electronically signed by: Benny Viramontes M.D. 12/22/2020 5:36 PM Knee X-Ray 12/22/20 15:53 XR knee LT 1 or 2V routine CLINICAL HISTORY: Left knee pain status post trauma COMPARISON: None. DISCUSSION: Postsurgical changes are evident. There is evidence for a prior total left knee arthroplasty. Surgical changes are also present within the distal femur. There is prepatellar soft tissue edema. No acute fractures or dislocations are visualized. IMPRESSION: 1. Mildly limited study from a positioning standpoint 2. Postsurgical changes 2. No acute fractures identified ACT 112: Negative or not required by law. Electronically signed by: Benny Viramontes M.D. 12/22/2020 5:40 PM Discharge Plan Visit Data Chief Complaint: Altered Mental Status ED Provider: Reid Gonzalez Discharge Problem: Closed rib fracture, Change in mental status, Hypomagnesemia Patient Disposition: Admitted As Inpatient Discharge Instructions Interventions: ED Discharge Assessment Last Done: 12/22/20 22:42 Discharge Problem: Closed rib fracture Qualifiers: Encounter type: subsequent encounter Rib fracture type: multiple ribs Laterality: left Fracture healing: with routine healing Qualified Code(s): S22.42XD - Multiple fractures of ribs, left side, subsequent encounter for fracture with routine healing Change in mental status Qualifiers: Altered mental status type: unspecified Qualified Code(s): R41.82 - Altered mental status, unspecified
--- NOTE | 2020-12-22 16:37 | Electrocardiogram Report ---
Test Reason : Blood Pressure : / mmHG Vent. Rate : 081 BPM Atrial Rate : 081 BPM P-R Int : 230 ms QRS Dur : 090 ms QT Int : 384 ms P-R-T Axes : 035 007 073 degrees QTc Int : 446 ms Sinus rhythm with 1st degree A-V block Cannot rule out Inferior infarct (cited on or before 16-MAY-2010) Abnormal ECG When compared with ECG of 28-MAY-2017 13:44, QT has lengthened Confirmed by Chino Kilpatrick ([id number]) on 12/22/2020 4:37:08 PM Referred By: REFERRED SELF Confirmed By:Darinel Kilpatrick
[2020-12-22 16:44] LABS: Basophils # (auto) 0.01 K/uL (0-0.2); Basophils % (auto) 0.2 %; Eosinophils # (auto) 0.34 K/uL (0-0.5); Eosinophils % (auto) 5.5 %; Hematocrit (blood only) 35.7 % (42-52); Hemoglobin 11.8 g/dL (14.0-18.0); Immature Granulocytes # (auto) 0.01 K/uL (0.00-0.02); Immature Granulocytes % (auto) 0.2 %; Lymphocytes # (auto) 0.72 K/uL (1.2-3.4); Lymphocytes % (auto) 11.7 %; Mean Corpuscular Hemoglobin 26.5 pg (25-34); Mean Corpuscular Hgb Conc 33.1 g/dL (32-36); Mean Corpuscular Volume 80.2 fL (80-100); Monocytes # (auto) 0.75 K/uL (0.11-0.59); Monocytes % (auto) 12.2 %; Neutrophils # (auto) 4.32 K/uL (1.4-6.5); Neutrophils % (auto) 70.2 %; Platelet Count 298 K/uL (130-400); RDW Coefficient of Variation 15.1 % (11.5-14.5); RDW Standard Deviation 44.5 fL (36.4-46.3); Red Blood Count 4.45 M/uL (4.7-6.1); White Blood Count 6.15 K/uL (4.8-10.8)
--- NOTE | 2020-12-22 16:59 | CT Scan Report ---
CT SCAN OF THE BRAIN WITHOUT IV CONTRAST CLINICAL HISTORY: Change in mental status. Fall. COMPARISON STUDY: CT of the brain dated 12/17/2020. TECHNIQUE: Unenhanced axial CT scan of the brain is performed from the vertex to the skull base. A do se lowering technique was utilized adhering to the principles of ALARA. The skull base was scanned tw ice due to motion artifact. CT DOSE: 1031.85 mGy.cm FINDINGS: Brain parenchyma: There are age-related involutional changes noting mild subcortical and periventric ular microangiopathic change. There is no hemorrhage, mass effect, or evidence of acute territorial i schemia by CT criteria. Godinez-white matter differentiation is preserved. No extra-axial fluid collecti on is seen. Ventricles, sulci, cisterns: Prominent secondary to involutional change. Intracranial vasculature: There is atherosclerotic calcification of the cavernous carotid and vertebr al arteries. Calvarium: The skeletal structures are osteopenic. No depressed calvarial fracture is identified. Sinuses and mastoids: Trace mucosal thickening is noted in the right maxillary antrum. The remaining paranasal sinuses are clear. The mastoid air cells are well pneumatized. Orbits: The bony orbits are grossly intact. IMPRESSION: There is no hemorrhage, mass effect, or evidence of acute territorial ischemia by CT morrot yassine. ACT 112: Negative or not required by law. Electronically signed by: Delvis Olson M.D. 12/22/2020 4:57 PM
[2020-12-22 17:00] LABS: Alanine Aminotransferase 19 U/L (12-78); Aspartate Aminotransferase 8 U/L (15-37); Bilirubin Direct < 0.1 mg/dl (0-0.2); Blood Urea Nitrogen 27 mg/dl (7-18); Calcium 8.7 mg/dl (8.5-10.1); Carbon Dioxide 24 mmol/L (21-32); Chloride 103 mmol/L (98-107); Creatinine Clr Calc Pharmacy 107.8 ml/min; Est GFR (African American) 102.5 ml/min; Est GFR (Non-African American) 88.5 ml/min; Glucose 227 mg/dl (70-99); Lipase 64 U/L (73-393); Magnesium 1.7 mg/dl (1.8-2.4); Partial Thromboplastin Ratio 1.1; Partial Thromboplastin Time 28.6 Seconds (21.0-31.0); Potassium 3.8 mmol/L (3.5-5.1); Prothrombin Time 10.6 Seconds (9.0-12.0); Sodium 136 mmol/L (136-145)
[2020-12-22 17:04] LABS: Albumin Globulin Ratio 0.8 (0.9-2); Alkaline Phosphatase 63 U/L (45-117); Bilirubin,Total 0.3 mg/dl (0.2-1); Creatine Kinase 205 U/L (39-308); Globulin 3.9 gm/dl (2.5-4.0); NT Pro B Type Natriuretic Pept 83 pg/ml (0-900); Phosphorus 2.9 mg/dl (2.5-4.9); Total Protein 6.9 gm/dl (6.4-8.2); Troponin I < 0.015 ng/ml (0-0.045)
--- NOTE | 2020-12-22 17:37 | XRay Report ---
XR chest 1V portable CLINICAL HISTORY: Atypical chest pain COMPARISON STUDY: 05/28/2017 FINDINGS: The heart is enlarged. There is mediastinal prominence, likely vascular. There is aortic to rtuosity/ectasia. There is mild pulmonary vascular congestion. There are left basilar opacities, like ly atelectatic. Clinical and radiographic follow-up are recommended.[ IMPRESSION: 1. Cardiomegaly and radiographic evidence of mild congestive failure/fluid overload 2. Mediastinal widening, likely vascular. There is aortic tortuosity/ectasia 3. Left basilar opacities, statistically atelectatic 4. Clinical and radiographic follow-up are recommended ACT 112: Negative or not required by law. Electronically signed by: Benny Viramontes M.D. 12/22/2020 5:36 PM
[2020-12-22] MEDS ORDERED: MAGNESIUM SULFATE / D5W 1 GM/100 ML BAG IV STA (17:39)
--- NOTE | 2020-12-22 17:41 | XRay Report ---
XR knee LT 1 or 2V routine CLINICAL HISTORY: Left knee pain status post trauma COMPARISON: None. DISCUSSION: Postsurgical changes are evident. There is evidence for a prior total left knee arthropla sty. Surgical changes are also present within the distal femur. There is prepatellar soft tissue edema. No acute fractures or dislocations are visualized. IMPRESSION: 1. Mildly limited study from a positioning standpoint 2. Postsurgical changes 2. No acute fractures identified ACT 112: Negative or not required by law. Electronically signed by: Benny Viramontes M.D. 12/22/2020 5:40 PM
[2020-12-22 18:21] LABS: Appearance Urine Clear (Clear); Bilirubin Urine Negative (Negative); Blood Urine Negative (Negative); Color Urine Yellow; Glucose Urine UA Negative (Negative); Ketones Urine Negative (Negative); Leukocyte Esterase Urine Negative (Negative); Nitrite Urine Negative (Negative); Protein Urine Negative (Negative); Urobilinogen Urine Negative (Negative)
[2020-12-22] MEDS ORDERED: LIDOCAINE 5% 1 PATCH TD STA (18:52)
--- NOTE | 2020-12-22 22:14 | History & Physical Report ---
Date of Service December 22, 2020 Assessment & Plan (1) Change in mental status: Primary concern at this point is patient is having side effect of the pain medication oxycodone, which she is getting every 3 hours while awake at home. Present on Admission?: Yes (2) Mental retardation: Mental retardation/seizure disorder/anxiety with depression- Continue valproic acid, with level pending Continue Lexapro. Family provides primary information regarding history and alertness at home Present on Admission?: Yes (3) Closed rib fracture: Acute closed rib fractures on the left, 7-9. Discontinue oxycodone. Placed on Lidoderm patch during the day, and Voltaren gel up to 4 times daily when Lidoderm patch is not on Tramadol 50 mg p.o. every 6 hours as needed severe pain Present on Admission?: Yes (4) Hypertension: Hold triamterene/HCTZ. Continue amlodipine and aspirin Present on Admission?: Yes (5) Gout: Continue allopurinol. Monitor left elbow for possible gouty attack development Present on Admission?: Yes (6) Seizure disorder: See above Present on Admission?: Yes (7) Anxiety with depression: See above Present on Admission?: Yes (8) Diabetes mellitus: Hold Metformin. Placed in Accu-Cheks before meals and at bedtime with NovoLog coverage per scale Present on Admission?: Yes (9) Dyslipidemia: Continue rosuvastatin and fenofibrate Present on Admission?: Yes (10) BPH w urinary obs/LUTS: Continue tamsulosin Present on Admission?: Yes (11) GERD (gastroesophageal reflux disease): Continue omeprazole Present on Admission?: Yes History of Present Illness Chief Complaint: The patient presents to the emergency department due to family concerns regarding worsening confusion shortness of breath and painful recent acute rib fractures. Primary Care Provider: NEETU Nieto The patient is a 69-year-old male with a past medical history including developmental delay, closed rib fractures 7- 9, hypertension, acute renal failure, anemia, dehydration, hypoxia, infected left hip prosthesis, seizure disorder, anxiety with depression, dyslipidemia, diabetes mellitus, GERD, BPH with LUTS and obesity. Patient was seen in the emergency department on December 17 for mechanical fall, and was diagnosed with acute rib fractures on the left seventh through ninth ribs. He was sent home with a prescription for oxycodone to use as needed. Family reports concerns that over the past day since that visit, the patient has become less animated, less interactive, with worsening confusion and are not sure if it is rib cage pain is being controlled. Allergies Allergy/AdvReac Type Severity Reaction Status Date / Time bee venom protein (honey bee) Allergy Unknown RASH Verified 12/22/20 16:19 Penicillins Allergy Unknown RASH Verified 12/22/20 16:19 Home Medications Medication Instructions Recorded Confirmed Type allopurinol 300 mg PO QAM 12/17/20 12/22/20 History amlodipine 5 mg PO QAM 12/17/20 12/22/20 History aspirin 81 mg PO QAM 12/17/20 12/22/20 History ciprofloxacin HCl 500 mg PO BID 12/17/20 12/22/20 History divalproex See Rx Instructions .ROUTE .COMPLEX 12/17/20 12/22/20 History escitalopram oxalate 10 mg PO QAM 12/17/20 12/22/20 History escitalopram oxalate 20 mg PO QPM 12/17/20 12/22/20 History fenofibrate nanocrystallized 48 mg PO QPM 12/17/20 12/22/20 History ferrous fumarate-vitamin C 1 tab PO QAM 12/17/20 12/22/20 History [Urpuzx-Q-Lugl] ketoconazole 1 ea TOPICAL 3XWK 12/17/20 12/22/20 History metformin 500 mg PO QDD 12/17/20 12/22/20 History multivitamin with minerals 1 tab PO QAM 12/17/20 12/22/20 History omeprazole 20 mg PO QAM 12/17/20 12/22/20 History oxycodone 5 mg PO Q6H PRN #10 tab 12/17/20 12/22/20 Rx rosuvastatin 10 mg PO QPM 12/17/20 12/22/20 History tamsulosin 0.4 mg PO QAM 12/17/20 12/22/20 History triamcinolone acetonide 1 applic TOPICAL BID 12/17/20 12/22/20 History triamterene-hydrochlorothiazid 1 tab PO DAILY PRN 12/17/20 12/22/20 History Past Med/Surg History Medical History (Updated 12/23/20 @ 01:51 by Braydon Leahy MD) Anxiety with depression BPH w urinary obs/LUTS Closed rib fracture Diabetes mellitus Dyslipidemia GERD (gastroesophageal reflux disease) Gout Mental retardation Seizure disorder Family History (Updated 12/22/20 @ 23:48 by Reid Gonzalez MD) Other Family history non-contributory Social History (System 01/11/20 @ 13:51 by Ly Nieves) Smoking Status: Never smoker Hx Alcohol Use: No Hx Substance Use: No Preferred Language: Thai Communication Ability: Impaired Communication Ability Comment: Hard to understand Director Financial Systems Required: No Beliefs That Will Affect Care: None Current Living Situation: Legal Guardian Current Living Situation Comment: lives with sister Martha Michael Other Information That Helps Us Care for You: No Feels Safe at Home: Yes Safety Concerns: Feels Safe At This Time Assistive Devices: Walker Review of Systems Review of Systems: Unobtainable due to mental health condition Patient's family supplies information as noted. Physical Exam Physical Exam: The patient is awake, well developed and well nourished, normocephalic and atraumatic, lying in bed and in no acute distress. HEENT--PERRL, EOMI, mucous membranes and oropharynx dry. Neck--supple. No JVD. No bruits. Thyroid normal, trachea midline, no adenopathy. Heart--normal S1 and S2. No murmurs, rubs or gallops. Lungs--decreased breath sounds on left. No respiratory distress, no accessory muscle use. Abdomen--normal bowel sounds and soft. Nontender. Nondistended. Obese. Extremities--no cyanosis or clubbing. No edema. Dermatologic--normal skin turgor, normal color, no abnormal lymph nodes, no rash. Neurologic--cranial nerves II through XII grossly intact. Rheumatologic--normal range of motion. Psychiatric--normal affect. Results & Data Results & Data ([facility]) Vital Signs (Past 12 Hours) Vital Signs Temp Pulse Pulse Resp BP Pulse Ox 12/22/20 21:45 76 29 H 133/77 90 12/22/20 21:30 73 22 137/103 H 92 12/22/20 21:16 72 12/22/20 20:30 73 23 12/22/20 20:15 74 21 12/22/20 20:00 70 17 12/22/20 19:45 69 23 12/22/20 19:31 72 20 147/74 H 12/22/20 19:30 70 24 12/22/20 19:16 69 16 151/78 H 93 12/22/20 19:15 81 18 96 12/22/20 19:00 68 18 139/101 H 95 12/22/20 18:45 73 19 135/79 91 12/22/20 18:30 79 16 147/66 H 92 12/22/20 18:16 75 20 128/81 91 12/22/20 18:15 75 24 94 12/22/20 18:01 72 22 130/80 91 12/22/20 18:00 69 21 94 12/22/20 17:48 75 23 162/91 H 93 12/22/20 17:45 25 H 12/22/20 17:30 71 24 12/22/20 17:15 73 26 H 12/22/20 17:00 73 19 12/22/20 16:57 72 20 12/22/20 16:24 67 98 12/22/20 16:15 75 21 95 12/22/20 16:00 76 20 91 12/22/20 15:45 89 20 94 12/22/20 15:38 78 21 93 12/22/20 15:31 98.4 F 82 20 182/86 H 95 12/22/20 15:30 86 16 182/86 H 95 12/22/20 15:12 98 Laboratory Results Laboratory Results WBC 6.15 K/uL (4.8-10.8) 12/22/20 16:23 RBC 4.45 M/uL (4.7-6.1) L 12/22/20 16:23 Hgb 11.8 g/dL (14.0-18.0) L 12/22/20 16:23 Hct 35.7 % (42-52) L 12/22/20 16:23 MCV 80.2 fL (80-100) 12/22/20 16:23 MCH 26.5 pg (25-34) 12/22/20 16:23 MCHC 33.1 g/dL (32-36) 12/22/20 16:23 RDW Std Deviation 44.5 fL (36.4-46.3) 12/22/20 16:23 RDW Coeff of Hortensia 15.1 % (11.5-14.5) H 12/22/20 16:23 Plt Count 298 K/uL (130-400) 12/22/20 16: MPV 9.0 fL (7.4-10.4) 12/22/20 16:23 Immature Gran % (Auto) 0.2 % 12/22/20 16:23 Neut % (Auto) 70.2 % 12/22/20 16:23 Lymph % (Auto) 11.7 % 12/22/20 16:23 Hamlin % (Auto) 12.2 % 12/22/20 16:23 Eos % (Auto) 5.5 % 12/22/20 16:23 Baso % (Auto) 0.2 % 12/22/20 16:23 Neut # (Auto) 4.32 K/uL (1.4-6.5) 12/22/20 16:23 Lymph # (Auto) 0.72 K/uL (1.2-3.4) L 12/22/20 16:23 Hamlin # (Auto) 0.75 K/uL (0.11-0.59) H 12/22/20 16:23 Eos # (Auto) 0.34 K/uL (0-0.5) 12/22/20 16:23 Baso # (Auto) 0.01 K/uL (0-0.2) 12/22/20 16:23 Immature Gran # (Auto) 0.01 K/uL (0.00-0.02) 12/22/20 16:23 PT 10.6 Seconds (9.0-12.0) 12/22/20 16:23 INR 1.0 (0.9-1.1) 12/22/20 16:23 APTT 28.6 Seconds (21.0-31.0) 12/22/20 16:23 PTT Ratio 1.1 12/22/20 16:23 Sodium 136 mmol/L (136-145) 12/22/20 16:23 Potassium 3.8 mmol/L (3.5-5.1) 12/22/20 16: Chloride 103 mmol/L (98-107) 12/22/20 16:23 Carbon Dioxide 24 mmol/L (21-32) 12/22/20 16:23 Anion Gap 9.0 (3-11) 12/22/20 16:23 BUN 27 mg/dl (7-18) H 12/22/20 16:23 Creatinine 0.86 mg/dl (0.6-1.4) 12/22/20 16:23 Est Cr Clr Drug Dosing 107.8 ml/min 12/22/20 16:23 Est GFR ( Amer) 102.5 ml/min 12/22/20 16:23 Est GFR (Non-Af Amer) 88.5 ml/min 12/22/20 16:23 BUN/Creatinine Ratio 31.0 (10-20) H 12/22/20 16:23 Glucose 227 mg/dl (70-99) H 12/22/20 16:23 POC Glucose 243 mg/dl (70-99) H 12/22/20 15:42 Calcium 8.7 mg/dl (8.5-10.1) 12/22/20 16:23 Phosphorus 2.9 mg/dl (2.5-4.9) 12/22/20 16:23 Magnesium 1.7 mg/dl (1.8-2.4) L 12/22/20 16:23 Total Bilirubin 0.3 mg/dl (0.2-1) 12/22/20 16:23 Direct Bilirubin < 0.1 mg/dl (0-0.2) 12/22/20 16:23 AST 8 U/L (15-37) L 12/22/20 16:23 ALT 19 U/L (12-78) 12/22/20 16:23 Alkaline Phosphatase 63 U/L (45-117) 12/22/20 16:23 Ammonia 19.7 umol/L (11-32) 12/22/20 19:39 Total Creatine Kinase 205 U/L (39-308) 12/22/20 16:23 Troponin I < 0.015 ng/ml (0-0.045) 12/22/20 16:23 NT-Pro-B Natriuret Pep 83 pg/ml (0-900) 12/22/20 16:23 Total Protein 6.9 gm/dl (6.4-8.2) 12/22/20 16:23 Albumin 3.0 gm/dl (3.4-5.0) L 12/22/20 16:23 Globulin 3.9 gm/dl (2.5-4.0) 12/22/20 16:23 Albumin/Globulin Ratio 0.8 (0.9-2) L 12/22/20 16:23 Lipase 64 U/L (73-393) L 12/22/20 16:23 Urine Color Yellow 12/22/20 17:56 Urine Appearance Clear (Clear) 12/22/20 17:56 Urine pH 5.0 (4.5-7.5) 12/22/20 17:56 Ur Specific Angie 1.020 (1.000-1.030) 12/22/20 17:56 Urine Protein Negative (Negative) 12/22/20 17:56 Urine Glucose (UA) Negative (Negative) 12/22/20 17:56 Urine Ketones Negative (Negative) 12/22/20 17:56 Urine Blood Negative (Negative) 12/22/20 17:56 Urine Nitrite Negative (Negative) 12/22/20 17:56 Urine Bilirubin Negative (Negative) 12/22/20 17:56 Urine Urobilinogen Negative (Negative) 12/22/20 17:56 Ur Leukocyte Esterase Negative (Negative) 12/22/20 17:56 Valproic Acid 21 mcg/ml (50-100) L 12/22/20 19:39 COVID-19 Eval Order Covid19 at [facility] 12/22/20 16:09 SARS-CoV-2 (PCR) NEGATIVE (Negative) 12/22/20 16:[address] 12/22/20 15:48 CT SCAN OF THE BRAIN WITHOUT IV CONTRAST CLINICAL HISTORY: Change in mental status. Fall. COMPARISON STUDY: CT of the brain dated 12/17/2020. TECHNIQUE: Unenhanced axial CT scan of the brain is performed from the vertex to the skull base. A dose lowering technique was utilized adhering to the principles of ALARA. The skull base was scanned twice due to motion artifact. CT DOSE: 1031.85 mGy.cm FINDINGS: Brain parenchyma: There are age-related involutional changes noting mild subcortical and periventricular microangiopathic change. There is no hemorrhage, mass effect, or evidence of acute territorial ischemia by CT criteria. Godinez- white matter differentiation is preserved. No extra-axial fluid collection is seen. Ventricles, sulci, cisterns: Prominent secondary to involutional change. Intracranial vasculature: There is atherosclerotic calcification of the cavernous carotid and vertebral arteries. Calvarium: The skeletal structures are osteopenic. No depressed calvarial fracture is identified. Sinuses and mastoids: Trace mucosal thickening is noted in the right maxillary antrum. The remaining paranasal sinuses are clear. The mastoid air cells are well pneumatized. Orbits: The bony orbits are grossly intact. IMPRESSION: There is no hemorrhage, mass effect, or evidence of acute territorial ischemia by CT criteria. ACT 112: Negative or not required by law. Electronically signed by: Delvis Olson M.D. 12/22/2020 4:57 PM Chest X-Ray 12/22/20 15:50 XR chest 1V portable CLINICAL HISTORY: Atypical chest pain COMPARISON STUDY: 05/28/2017 FINDINGS: The heart is enlarged. There is mediastinal prominence, likely vascular. There is aortic tortuosity/ectasia. There is mild pulmonary vascular congestion. There are left basilar opacities, likely atelectatic. Clinical and radiographic follow-up are recommended.[ IMPRESSION: 1. Cardiomegaly and radiographic evidence of mild congestive failure/fluid overload 2. Mediastinal widening, likely vascular. There is aortic tortuosity/ectasia 3. Left basilar opacities, statistically atelectatic 4. Clinical and radiographic follow-up are recommended ACT 112: Negative or not required by law. Electronically signed by: Benny Viramontes M.D. 12/22/2020 5:36 PM Knee X-Ray 12/22/20 15:53 XR knee LT 1 or 2V routine CLINICAL HISTORY: Left knee pain status post trauma COMPARISON: None. DISCUSSION: Postsurgical changes are evident. There is evidence for a prior total left knee arthroplasty. Surgical changes are also present within the distal femur. There is prepatellar soft tissue edema. No acute fractures or dislocations are visualized. IMPRESSION: 1. Mildly limited study from a positioning standpoint 2. Postsurgical changes 2. No acute fractures identified ACT 112: Negative or not required by law. Electronically signed by: Benny Viramontes M.D. 12/22/2020 5:40 PM [facility] Patient: ZAYRA MICHAEL (Male) : 50 Status: ER Date: 12/22/20 21:14 Room #: History: possible aspiration Slices: [phone] Priors: Tech: Bryce Mcdermott @ [phone] Exams: CT CHEST Without Contrast Contrast: Accession Numbers: [id number] Preliminary Findings Only See Final Report For Complete Findings CT CHEST Without Contrast: Comparison is made to CT chest on 12/17/2020. Exam is limited by motion artifact. Mildly displaced fractures of the left lateral seventh, eighth, and ninth ribs. Increased small left pleural effusion. Mild dependent atelectasis bilaterally. No focal consolidation. Enlarged heterogeneous thyroid could be further evaluated with nonemergent dedicated ultrasound if clinically indicated. Small hiatal hernia. Cardiomegaly. Coronary artery and mitral annular calcifications. Radiologist: Mendle Vargas M.D. Study ready at 21:22 and initial results transmitted at 21:44 *This report constitutes a preliminary interpretation only. Non-acute findings felt to be unrelated to the clinical presentation may not be discussed in this report. The study will be interpreted and a final report will be generated by the local Radiologist the following shift. To reach the hospital radiology department call [phone]. If a discrepancy is found between the preliminary and final interpretations of this study, please notify us via our Client Portal at [email or web address] under QA [email or web address].You can also fax this report with a description of the discrepancy, or include the final report, to our daytime fax number [phone].If faxing, please indicate the severity of discrepancy using one of the following categories: [ ] 1 - Agree/Informational [ ] 2 - Unlikely to Affect Management [ ] 3 - Possible Eventual Change of Management [ ] 4 - Probable Immediate Change of Management For all other patient related information, please fax us at [phone]. [id number] Code Status & VTE Plan Code Status Full code VTE Prophylaxis Plan VTE Prophylaxis will be ordered: Yes PG Care Time/CCT Total # of Minutes Spent Total Time Spent with Patient: Total time spent is greater than 50% in coordin ation of care (as documented) at patient's floor/unit and/or counseling patient: Coding Level of Care Code 85963 OBS Care - Level 3 Diagnoses Change in mental status R41.82 Altered mental status type: unspecified Mental retardation F79 Closed rib fracture S22.42XD Encounter type: subsequent encounter Fracture healing: with routine healing Laterality: left Rib fracture type: multiple ribs Hypertension I10 Gout M10.9 Seizure disorder G40.909 Anxiety with depression F41.8 Diabetes mellitus E11.9 Dyslipidemia E78.5 BPH w urinary obs/LUTS N40.1; N13.8 GERD (gastroesophageal reflux disease) K21.9 (1) Change in mental status Altered mental status type: unspecified Qualified Code(s): R41.82 - Altered mental status, unspecified (2) Closed rib fracture Encounter type: subsequent encounter Fracture healing: with routine healing Laterality: left Rib fracture type: multiple ribs Qualified Code(s): S22.42XD - Multiple fractures of ribs, left side, subsequent encounter for fracture with routine healing
[2020-12-22] MEDS ORDERED: ALBUT/IPRATROP 3MG/0.5MG NEB 3 ML VIAL NEB PRN (22:16)
[2020-12-23] MEDS ORDERED: GLUCOSE 10 TABS/TUBE PO PRN (00:10)
[2020-12-23] MEDS ORDERED: GLUCAGON FOR INJ 1 MG VIAL SQ PRN (00:10)
[2020-12-23] MEDS ORDERED: NON-FORMULARY MEDICATION (Ketoconazole 2 % Shampoo) TOP SCH (00:10)
[2020-12-23] MEDS ORDERED: GLUCOSE 40% GEL 15 GM TUBE PO PRN (00:10)
[2020-12-23] MEDS ORDERED: ONDANSETRON INJ 2 MG/ML 2 ML VIAL IV PRN (00:10)
[2020-12-23] MEDS ORDERED: traMADol HCL 50 MG TABLET PO PRN (00:10)
[2020-12-23] MEDS ORDERED: DEXTROSE 50% 50 ML SYRINGE IV PRN (00:10)
[2020-12-23] MEDS ORDERED: DICLOFENAC SOD 1% GEL 100 GM TUBE EXT PRN (00:10)
[2020-12-23] MEDS ORDERED: CARBOHYDRATES FOR HYPOGLYCEMIA PO PRN (00:10)
[2020-12-23] MEDS ORDERED: ACETAMINOPHEN 325 MG TAB PO PRN (00:10)
[2020-12-23] MEDS: HEPARIN SOD 5,000 UNIT/0.5 ML VIAL SQ SCH ×3 (05:36→21:54)
--- NOTE | 2020-12-23 08:08 | Hospitalist Progress Note ---
Date of Service December 23, 2020 Assessment & Plan (1) Change in mental status: Primary concern at this point is patient is having side effect of the pain medication oxycodone, which she is getting every 3 hours while awake at home. this will be stopped, also stop tramadol, use scheduled tylenol lidoderm and perhaps topical voltaren Initial work-up including CT head which has been negative chest x-ray which is negative CT chest which was negative for infectious etiologies. There is some tortuosity and cardiomegaly seen on imaging but there is no evidence of pneumonia or fluid collection. Incidentally there are thyroid nodules present in his rehab demonstration of her fractures on the left 6 through 9. Urinalysis is negative valproic acid level is low LFTs are unremarkable and regular serum chemistries are unremarkable Plan to be to wait for an additional day for toxic encephalopathy to clear could also consider using Narcan at this time however we will not do the due to unpleasant effects if this were to cause to treat her gait withdrawal in the patient. (2) Mental retardation: Mental retardation/seizure disorder/anxiety with depression- Continue valproic acid, with level is low however this is not used for antiepileptic effects Continue Lexapro. Family provides primary information regarding history and alertness at home, stating the patient is usually alert interactive and conversive (3) Closed rib fracture: Acute closed rib fractures on the left, 7-9. Discontinue oxycodone. Placed on Lidoderm patch during the day, and Voltaren gel up to 4 times daily when Lidoderm patch is not on Tramadol 50 mg p.o. every 6 hours as needed severe pain (4) Hypertension: Hold triamterene/HCTZ. 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 This was not ordered on admission and will restart on the evening of 12/23/2020 family did point this out and they were displeased with the fact that this was not started (6) Gout: Continue allopurinol. Monitor left elbow for possible gouty attack development (7) Seizure disorder: See above (8) Anxiety with depression: See above (9) Diabetes mellitus: Hold Metformin. Placed in Accu-Cheks before meals and at bedtime with NovoLog coverage per scale (10) Dyslipidemia: Continue rosuvastatin and fenofibrate (11) BPH w urinary obs/LUTS: Continue tamsulosin (12) GERD (gastroesophageal reflux disease): Continue omeprazole Admission and Anticipated Discharge Date Admission Date: December 22, 2020 Subjective Patient is interactive with me he does have some slurred speech he can communicate his needs he does sleep easily. I spent 35 minutes at the bedside after my initial evaluation and chart review this morning with the sisters who are displeased with his progress so far undergo overall of his results and wanted to give me information that was not included in the chart including chronic suppressive antibiotics for chronic hip infection Review of Systems Review of Systems: Unobtainable due to cognitive status Physical Exam Physical Exam: The patient appeared well nourished and normally developed. He has obviously developmental delay Vital signs as documented. Head exam is normocephalic atraumatic Neck is without JVD, thyromegaly, or carotid bruits. Lungs are clear to auscultation, no focal loss of breath sounds Cardiac exam, Rhythm is regular.. No murmurs, rubs or gallops. Abdominal exam reveals normal bowel sounds, soft non tender, no masses Extremities are nonedematous and both pedal pulses are present Neurologic exam is alert and follows commands is cooperative has some limitations of interaction seems to have some ambulatory limitations at baseline Results & Data Results & Data ([facility]) Vital Signs (Past 12 Hours) Vital Signs Temp Pulse Pulse Resp BP BP Pulse Ox 12/23/20 07:54 98.1 F 61 20 117/94 93 12/23/20 07:13 85 12/23/20 03:36 98.6 F 77 18 157/84 H 96 12/23/20 00:32 98.6 F 72 76 20 145/82 H 94 12/22/20 22:42 78 24 145/97 H 91 12/22/20 22:31 78 24 145/97 H 91 12/22/20 22:30 74 27 H 91 12/22/20 22:15 72 23 92 12/22/20 22:01 78 20 112/78 91 12/22/20 22:00 78 25 H 92 12/22/20 21:45 76 29 H 133/77 90 12/22/20 21:30 73 22 137/103 H 92 12/22/20 21:16 72 12/22/20 20:30 73 23 12/22/20 20:15 74 21 PG Care Time/CCT Total # of Minutes Spent Total Time Spent with Patient: Total time spent is greater than 50% in coordination of care (as documented) at patient's floor/unit and/or counseling patient: Coding Level of Care Code 54153 Subseq Hosp Care Lvl 2 (25 - SIGNIFICANT, SEPARATELY IDENTIFIABLE ) Diagnoses Change in mental status R41.82 Altered mental status type: unspecified Mental retardation F79 Closed rib fracture S22.42XD Encounter type: subsequent encounter Fracture healing: with routine healing Laterality: left Rib fracture type: multiple ribs Hypertension I10 Infected prosthesis of left hip T84.52XA Gout M10.9 Seizure disorder G40.909 Anxiety with depression F41.8 Diabetes mellitus E11.9 Dyslipidemia E78.5 BPH w urinary obs/LUTS N40.1; N13.8 GERD (gastroesophageal reflux disease) K21.9 Time Spent (min) 65 (1) Closed rib fracture Encounter type: subsequent encounter Fracture healing: with routine healing Laterality: left Rib fracture type: multiple ribs Qualified Code(s): S22.42XD - Multiple fractures of ribs, left side, subsequent encounter for fracture with routine healing (2) Change in mental status Altered mental status type: unspecified Qualified Code(s): R41.82 - Altered mental status, unspecified
[2020-12-23] MEDS: allopurinoL 300 MG TAB PO SCH (08:11)
[2020-12-23] MEDS: amLODIPine BESYLATE 5 MG TAB PO SCH (08:11)
[2020-12-23] MEDS: ASCORBIC ACID 500 MG TAB PO SCH (08:11)
[2020-12-23] MEDS: ASPIRIN 81 MG ECTAB PO SCH (08:12)
[2020-12-23] MEDS: ESCITALOPRAM OXALATE 10 MG TAB PO SCH (08:12)
[2020-12-23] MEDS: DIVALPROEX EXTENDED RELEASE 250 MG TABCR PO SCH ×2 (08:13→21:56)
[2020-12-23] MEDS: PANTOprazole 40 MG TAB PO SCH (08:13)
[2020-12-23] MEDS: TAMSULOSIN HCL 0.4 MG CAP PO SCH (08:13)
[2020-12-23] MEDS: CEROVITE ADV FORMULA TAB PO SCH (08:13)
[2020-12-23] MEDS: FERROUS SULFATE 325 MG TAB PO SCH (08:14)
[2020-12-23] MEDS: TRIAMCINOLONE ACET 0.1% CR 15 GM TUBE TOP SCH ×2 (08:14→21:53)
--- NOTE | 2020-12-23 08:16 | CT Scan Report ---
CT OF THE CHEST WITHOUT IV CONTRAST CLINICAL HISTORY: Possible aspiration. COMPARISON STUDY: Chest CT December 17, 2020. Chest radiograph December 22, 2020. CT DOSE: 1045.59 mGy.cm TECHNIQUE: Axial images of the chest were obtained without IV contrast. Images were reviewed in the axial, sagittal, and coronal planes. IV contrast was not administered for this examination. Automat ed exposure control was utilized for the study. A dose lowering technique was utilized adhering to t he principles of ALARA. FINDINGS: Multinodular thyroid gland is noted. This is better depicted on contrast enhanced CT of Ju 2020. Thoracic aorta is suboptimally assessed on this unenhanced exam. There is no mediastinal hematoma. Dilatation of the ascending aorta is unchanged, and 4.3 cm per there is moderate cardiomeg jennifer. There is no pericardial effusion. A small left pleural effusion is noted. Lungs are suboptimally assessed due to respiratory motion. There is no consolidation to suggest pneumonia. Subpleural opaci ties favor atelectasis. There is no pneumothorax. Left-sided rib fractures are again noted. There is an acute nondisplaced fractures of the anterolateral left sixth rib. There are acute mildly displaced fractures of the lateral left seventh, eighth and ninth ribs. No acute thoracic spine fracture is pr esent.] Fractures. IMPRESSION: 1. Small left pleural effusion. No pneumothorax. 2. Lungs suboptimally assessed due to motion artifact. However, no consolidation to suggest pneumonia . Subpleural opacities favor atelectasis. 3. Acute fractures of the left sixth through 10th ribs. ACT 112: Negative or not required by law. Electronically signed by: Skyler Manzanares M.D. 12/23/2020 8:15 AM
[2020-12-23] MEDS: ACETAMINOPHEN 500 MG TAB PO SCH ×3 (08:36→21:56)
[2020-12-23] MEDS: INSULIN ASPART 100 UNITS/ML 3 ML PEN SC SCH ×4 (08:39→21:57)
[2020-12-23 08:42] LABS: Basophils # (auto) 0.02 K/uL (0-0.2); Basophils % (auto) 0.3 %; Eosinophils # (auto) 0.39 K/uL (0-0.5); Eosinophils % (auto) 6.5 %; Hematocrit (blood only) 36.9 % (42-52); Immature Granulocytes # (auto) 0.03 K/uL (0.00-0.02); Immature Granulocytes % (auto) 0.5 %; Lymphocytes # (auto) 0.96 K/uL (1.2-3.4); Lymphocytes % (auto) 15.9 %; Mean Corpuscular Hemoglobin 26.1 pg (25-34); Mean Corpuscular Hgb Conc 32.5 g/dL (32-36); Mean Corpuscular Volume 80.2 fL (80-100); Mean Platelet Volume 9.1 fL (7.4-10.4); Monocytes # (auto) 0.52 K/uL (0.11-0.59); Monocytes % (auto) 8.6 %; Neutrophils % (auto) 68.2 %; Platelet Count 323 K/uL (130-400); RDW Standard Deviation 43.7 fL (36.4-46.3); White Blood Count 6.02 K/uL (4.8-10.8)
[2020-12-23 09:06] LABS: Estimated Average Glucose 194 mg/dl; Hemoglobin A1C 8.4 % (4.5-5.6)
[2020-12-23 09:07] LABS: Albumin Level 3.4 gm/dl (3.4-5.0); BUN Creatinine Ratio 24.1 (10-20); Calcium 8.7 mg/dl (8.5-10.1); Creatinine Clr Calc Pharmacy 124.1 ml/min; Est GFR (African American) 107.9 ml/min; Est GFR (Non-African American) 93.1 ml/min; Potassium 3.8 mmol/L (3.5-5.1)
[2020-12-23 09:10] LABS: Albumin Globulin Ratio 0.9 (0.9-2); Bilirubin,Total 0.3 mg/dl (0.2-1); Total Protein 7.4 gm/dl (6.4-8.2)
[2020-12-23] MEDS: LIDOCAINE 5% 1 PATCH TD SCH (18:28)
[2020-12-23] MEDS: ROSUVASTATIN CALCIUM 10 MG TAB PO SCH (21:55)
[2020-12-23] MEDS: ESCITALOPRAM OXALATE 20 MG TAB PO SCH (21:56)
[2020-12-23] MEDS: CIPROFLOXACIN 500 MG TAB PO SCH (21:56)
[2020-12-23] MEDS: FENOFIBRATE NANOCRYSTALLIZED 48 MG TABLET PO SCH (21:56)
[2020-12-24] MEDS: HEPARIN SOD 5,000 UNIT/0.5 ML VIAL SQ SCH ×3 (06:04→21:31)
[2020-12-24 07:43] LABS: Basophils # (auto) 0.01 K/uL (0-0.2); Basophils % (auto) 0.2 %; Eosinophils # (auto) 0.34 K/uL (0-0.5); Eosinophils % (auto) 6.5 %; Hematocrit (blood only) 36.2 % (42-52); Hemoglobin 11.5 g/dL (14.0-18.0); Immature Granulocytes # (auto) 0.02 K/uL (0.00-0.02); Immature Granulocytes % (auto) 0.4 %; Lymphocytes # (auto) 1.04 K/uL (1.2-3.4); Lymphocytes % (auto) 19.7 %; Mean Corpuscular Hemoglobin 25.7 pg (25-34); Mean Corpuscular Hgb Conc 31.8 g/dL (32-36); Mean Corpuscular Volume 80.8 fL (80-100); Mean Platelet Volume 8.9 fL (7.4-10.4); Monocytes # (auto) 0.44 K/uL (0.11-0.59); Monocytes % (auto) 8.3 %; Neutrophils # (auto) 3.42 K/uL (1.4-6.5); Neutrophils % (auto) 64.9 %; Platelet Count 312 K/uL (130-400); RDW Coefficient of Variation 14.7 % (11.5-14.5); RDW Standard Deviation 43.3 fL (36.4-46.3); Red Blood Count 4.48 M/uL (4.7-6.1); White Blood Count 5.27 K/uL (4.8-10.8)
[2020-12-24 08:17] LABS: BUN Creatinine Ratio 26.2 (10-20); Calcium 8.5 mg/dl (8.5-10.1); Creatinine Clr Calc Pharmacy 125.3 ml/min; Est GFR (African American) 109.5 ml/min; Est GFR (Non-African American) 94.5 ml/min; Potassium 4.1 mmol/L (3.5-5.1)
[2020-12-24 08:20] LABS: Albumin Globulin Ratio 0.8 (0.9-2); Bilirubin,Total 0.4 mg/dl (0.2-1); Globulin 3.7 gm/dl (2.5-4.0); Total Protein 6.7 gm/dl (6.4-8.2)
[2020-12-24] MEDS ORDERED: hydrALAZINE HCL 20 MG/ML VIAL IV PRN (08:59)
[2020-12-24] MEDS ORDERED: cloNIDine HCL 0.1 MG TAB PO PRN (08:59)
[2020-12-24] MEDS: PANTOprazole 40 MG TAB PO SCH (09:09)
[2020-12-24] MEDS: ASPIRIN 81 MG ECTAB PO SCH (09:09)
[2020-12-24] MEDS: amLODIPine BESYLATE 5 MG TAB PO SCH (09:09)
[2020-12-24] MEDS: allopurinoL 300 MG TAB PO SCH (09:09)
[2020-12-24] MEDS: CEROVITE ADV FORMULA TAB PO SCH (09:09)
[2020-12-24] MEDS: FERROUS SULFATE 325 MG TAB PO SCH (09:09)
[2020-12-24] MEDS: ASCORBIC ACID 500 MG TAB PO SCH (09:09)
[2020-12-24] MEDS: ACETAMINOPHEN 500 MG TAB PO SCH ×3 (09:10→21:30)
[2020-12-24] MEDS: CIPROFLOXACIN 500 MG TAB PO SCH ×2 (09:10→21:29)
[2020-12-24] MEDS: ESCITALOPRAM OXALATE 10 MG TAB PO SCH (09:10)
[2020-12-24] MEDS: TAMSULOSIN HCL 0.4 MG CAP PO SCH (09:11)
[2020-12-24] MEDS: TRIAMCINOLONE ACET 0.1% CR 15 GM TUBE TOP SCH ×2 (09:12→21:26)
[2020-12-24] MEDS: INSULIN ASPART 100 UNITS/ML 3 ML PEN SC SCH ×4 (09:13→21:33)
[2020-12-24] MEDS: DIVALPROEX EXTENDED RELEASE 250 MG TABCR PO SCH ×2 (09:22→21:30)
[2020-12-24] MEDS: LIDOCAINE 5% 1 PATCH TD SCH (17:59)
--- NOTE | 2020-12-24 17:59 | Hospitalist Progress Note ---
Date of Service December 24, 2020 Assessment & Plan (1) Change in mental status: Primary concern at this point is patient is having side effect of the pain medication oxycodone, which she was getting every 3 hours while awake at home. thiswas be stopped, also stop tramadol, use scheduled tylenol lidoderm and perhaps topical voltaren Initial work-up including CT head which has been negative chest x-ray which is negative CT chest which was negative for infectious etiologies. There is some tortuosity and cardiomegaly seen on imaging but there is no evidence of pneumonia or fluid collection. Incidentally there are thyroid nodules present in his rehab demonstration of her fractures on the left 6 through 9. Urinalysis is negative valproic acid level is low LFTs are unremarkable and regular serum chemistries are unremarkable toxic encephalopathy is resolving still need to just confirm the patient is ambulatory to a satisfactory extent with a walker prior to returning home to his sister's care (2) Mental retardation: Mental retardation/seizure disorder/anxiety with depression- Continue valproic acid, with level is low however this is not used for antiepileptic effects Continue Lexapro. Family provides primary information regarding history and alertness at home, stating the patient is usually alert interactive and conversive though having speech limitations (3) Closed rib fracture: Acute closed rib fractures on the left, 7-9. Discontinue oxycodone. Placed on Lidoderm patch during the day, and Voltaren gel up to 4 times daily when Lidoderm patch is not on may consider Lidoderm or Voltaren for home (4) Hypertension: Hold triamterene/HCTZ. 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 This was not ordered on admission and will restart on the evening of 12/23/2020 family did point this out and they were displeased with the fact that this was not started Cipro was begun the evening of (6) Gout: Continue allopurinol. Monitor left elbow for possible gouty attack development (7) Seizure disorder: See above (8) Anxiety with depression: See above (9) Diabetes mellitus: Hold Metformin. Placed in Accu-Cheks before meals and at bedtime with NovoLog coverage per scale (10) Dyslipidemia: Continue rosuvastatin and fenofibrate (11) BPH w urinary obs/LUTS: Continue tamsulosin (12) GERD (gastroesophageal reflux disease): Continue omeprazole Admission and Anticipated Discharge Date Admission Date: December 22, 2020 Subjective Patient is interactive with me he does have some slurred speech he can communicate his needs family is at the bedside and is pleased with his progress Review of Systems Review of Systems: Mild distress and fatigue no headache, no visual changes As his baseline slurred speech per his family Complains of left chest wall pain no shortness of breath, cough or wheezes no abdominal pain, nausea or vomiting, diarrhea or constipation no dysuria, hematuria or frequency Mild left elbow knee pain from his previous falls no back pain, CVA tenderness or radicular pain no bruising, bleeding or rashes no focal signs of weakness or numbness or altered sensation no complaints of anxiety or depression.. Physical Exam Physical Exam: The patient appeared well nourished and normally developed. Vital signs as documented. Head exam is normocephalic atraumatic Neck is without JVD, thyromegaly, or carotid bruits. Lungs are clear to auscultation, no focal loss of breath sounds Cardiac exam, Rhythm is regular.. No murmurs, rubs or gallops. Abdominal exam reveals normal bowel sounds, soft non tender, no masses Extremities are nonedematous and both pedal pulses are present Neurologic exam is alert and oriented, no focal loss of strength or sensation Skin is without bruises or rashes Psychologically is with developmental delay memory impairment Results & Data Results & Data ([facility]) Vital Signs (Past 12 Hours) Vital Signs Temp Pulse Pulse Resp BP BP Pulse Ox 12/24/20 15:29 98.2 F 91 H 18 159/95 H 93 12/24/20 12:09 97.9 F 72 18 150/92 H 91 12/24/20 08:34 98.4 F 77 20 180/100 H 91 12/24/20 08:00 63 PG Care Time/CCT Total # of Minutes Spent Total Time Spent with Patient: Total time spent is greater than 50% in coordination of care (as documented) at patient's floor/unit and/or counseling patient: Coding Level of Care Code 27423 Subseq Hosp Care Lvl 2 Diagnoses Change in mental status R41.82 Altered mental status type: unspecified Mental retardation F79 Closed rib fracture S22.42XD Encounter type: subsequent encounter Fracture healing: with routine healing Laterality: left Rib fracture type: multiple ribs Hypertension I10 Infected prosthesis of left hip T84.52XA Gout M10.9 Seizure disorder G40.909 Anxiety with depression F41.8 Diabetes mellitus E11.9 Dyslipidemia E78.5 BPH w urinary obs/LUTS N40.1; N13.8 GERD (gastroesophageal reflux disease) K21.9 (1) Change in mental status Altered mental status type: unspecified Qualified Code(s): R41.82 - Altered mental status, unspecified (2) Closed rib fracture Encounter type: subsequent encounter Fracture healing: with routine healing Laterality: left Rib fracture type: multiple ribs Qualified Code(s): S22.42XD - Multiple fractures of ribs, left side, subsequent encounter for fracture with routine healing
[2020-12-24] MEDS: FENOFIBRATE NANOCRYSTALLIZED 48 MG TABLET PO SCH (21:29)
[2020-12-24] MEDS: ESCITALOPRAM OXALATE 20 MG TAB PO SCH (21:29)
[2020-12-24] MEDS: ROSUVASTATIN CALCIUM 10 MG TAB PO SCH (21:31)
[2020-12-25] MEDS: HEPARIN SOD 5,000 UNIT/0.5 ML VIAL SQ SCH (05:53)
[2020-12-25 06:36] LABS: Basophils # (auto) 0.02 K/uL (0-0.2); Basophils % (auto) 0.3 %; Eosinophils # (auto) 0.35 K/uL (0-0.5); Eosinophils % (auto) 5.4 %; Hematocrit (blood only) 37.8 % (42-52); Hemoglobin 12.4 g/dL (14.0-18.0); Immature Granulocytes # (auto) 0.02 K/uL (0.00-0.02); Immature Granulocytes % (auto) 0.3 %; Lymphocytes # (auto) 0.87 K/uL (1.2-3.4); Lymphocytes % (auto) 13.5 %; Mean Corpuscular Hemoglobin 26.4 pg (25-34); Mean Corpuscular Hgb Conc 32.8 g/dL (32-36); Mean Corpuscular Volume 80.4 fL (80-100); Mean Platelet Volume 9.1 fL (7.4-10.4); Monocytes # (auto) 0.68 K/uL (0.11-0.59); Monocytes % (auto) 10.6 %; Neutrophils # (auto) 4.49 K/uL (1.4-6.5); Neutrophils % (auto) 69.9 %; Platelet Count 375 K/uL (130-400); RDW Coefficient of Variation 14.6 % (11.5-14.5); RDW Standard Deviation 43.4 fL (36.4-46.3); White Blood Count 6.43 K/uL (4.8-10.8)
[2020-12-25 07:06] LABS: Albumin Level 3.2 gm/dl (3.4-5.0); BUN Creatinine Ratio 22.3 (10-20); Calcium 9.1 mg/dl (8.5-10.1); Creatinine Clr Calc Pharmacy 118.7 ml/min; Est GFR (African American) 107.1 ml/min; Est GFR (Non-African American) 92.4 ml/min; Potassium 4.1 mmol/L (3.5-5.1)
[2020-12-25 07:08] LABS: Albumin Globulin Ratio 0.8 (0.9-2); Bilirubin,Total 0.3 mg/dl (0.2-1); Globulin 4.1 gm/dl (2.5-4.0); Total Protein 7.3 gm/dl (6.4-8.2)
[2020-12-25] MEDS: ACETAMINOPHEN 500 MG TAB PO SCH (09:23)
[2020-12-25] MEDS: amLODIPine BESYLATE 5 MG TAB PO SCH (09:23)
[2020-12-25] MEDS: DIVALPROEX EXTENDED RELEASE 250 MG TABCR PO SCH (09:23)
[2020-12-25] MEDS: allopurinoL 300 MG TAB PO SCH (09:23)
[2020-12-25] MEDS: ESCITALOPRAM OXALATE 10 MG TAB PO SCH (09:23)
[2020-12-25] MEDS: ASCORBIC ACID 500 MG TAB PO SCH (09:23)
[2020-12-25] MEDS: ASPIRIN 81 MG ECTAB PO SCH (09:23)
[2020-12-25] MEDS: CIPROFLOXACIN 500 MG TAB PO SCH (09:23)
[2020-12-25] MEDS: FERROUS SULFATE 325 MG TAB PO SCH (09:24)
[2020-12-25] MEDS: CEROVITE ADV FORMULA TAB PO SCH (09:24)
[2020-12-25] MEDS: TRIAMCINOLONE ACET 0.1% CR 15 GM TUBE TOP SCH (09:24)
[2020-12-25] MEDS: PANTOprazole 40 MG TAB PO SCH (09:24)
[2020-12-25] MEDS: TAMSULOSIN HCL 0.4 MG CAP PO SCH (09:24)
[2020-12-25] MEDS: INSULIN ASPART 100 UNITS/ML 3 ML PEN SC SCH ×2 (09:25→12:30)
--- NOTE | 2020-12-25 13:31 | Discharge Summary ---
Date of Service December 25, 2020 Admission HPI Per Admitting Provider The patient is a 69-year-old male with a past medical history including developmental delay, closed rib fractures 7- 9, hypertension, acute renal failure, anemia, dehydration, hypoxia, infected left hip prosthesis, seizure disorder, anxiety with depression, dyslipidemia, diabetes mellitus, GERD, BPH with LUTS and obesity. Patient was seen in the emergency department on December 17 for mechanical fall, and was diagnosed with acute rib fractures on the left seventh through ninth ribs. He was sent home with a prescription for oxycodone to use as needed. Family reports concerns that over the past day since that visit, the patient has become less animated, less interactive, with worsening confusion and are not sure if it is rib cage pain is being controlled. Admission Exam Per Admitting Provider Physical Exam: The patient is awake, well developed and well nourished, normocephalic and atraumatic, lying in bed and in no acute distress. HEENT--PERRL, EOMI, mucous membranes and oropharynx dry. Neck--supple. No JVD. No bruits. Thyroid normal, trachea midline, no adenopathy. Heart--normal S1 and S2. No murmurs, rubs or gallops. Lungs--decreased breath sounds on left. No respiratory distress, no accessory muscle use. Abdomen--normal bowel sounds and soft. Nontender. Nondistended. Obese. Extremities--no cyanosis or clubbing. No edema. Dermatologic--normal skin turgor, normal color, no abnormal lymph nodes, no rash. Neurologic--cranial nerves II through XII grossly intact. Rheumatologic--normal range of motion. Psychiatric--normal affect. Principal Diagnosis Altered mental status secondary to opiates Discharge Exam Constitutional WD/WN, vitals as above Eyes + anicteric sclerae; normal pupil size Respiratory normal respiratory effort, lungs clear to auscultation Cardiovascular RRR, no murmur, no edema Neurologic moves all extremities and awake; no focal motor deficits (no lateralizing deficit) and not confused Psychiatric A+Ox3, euthymic affect Discharge Data Allergies Allergy/AdvReac Type Severity Reaction Status Date / Time bee venom protein (honey bee) Allergy Unknown RASH Verified 12/22/20 16:19 Penicillins Allergy Unknown RASH Verified 12/22/20 16:19 Consultations 12/22/20 18:51 ED Decision to Admit Stat Ordered Studies 12/22/20 15:48 CT head/brain wo con Stat IMPRESSION: There is no hemorrhage, mass effect, or evidence of acute territorial ischemia by CT criteria. 12/22/20 20:05 CT chest diagnostic wo con Urgent IMPRESSION: 1. Small left pleural effusion. No pneumothorax. 2. Lungs suboptimally assessed due to motion artifact. However, no consolidation to suggest pneumonia. Subpleural opacities favor atelectasis. 3. Acute fractures of the left sixth through 10th ribs. Hospital Course (1) Change in mental status: Don Posey is a 70 year old male observed at [facility] from December 22-2020 due to altered mental status. This improved over 2 days with holding his recently prescribed oxycodone therefore suspect your symptoms were secondary to this medication. After physical therapy assessment he was determined to be back to your baseline and are now medically stable for discharge. Recommend using acetaminophen regularly and/or a lidocaine patch for any ongoing pain. (2) Mental retardation: (3) Closed rib fracture: Acute closed rib fractures on the left, 7-9. Discontinue oxycodone. Placed on Lidoderm patch during the day, and Voltaren gel up to 4 times daily when Lidoderm patch is not on may consider Lidoderm or Voltaren for home (4) Hypertension: (5) Infected prosthesis of left hip: (6) Gout: (7) Seizure disorder: (8) Anxiety with depression: (9) Diabetes mellitus: (10) Dyslipidemia: (11) BPH w urinary obs/LUTS: (12) GERD (gastroesophageal reflux disease): Total Time Total Time Spent Total Time Spent (In Minutes): 35 Total Time Includes: Examination of the Patient, Discharge Planning and Medication Reconciliation Discharge Plan Discharge Items Patient Disposition: Home - Self-Care Reason For Visit: AMS Discharge Diagnosis: Altered mental status secondary to opiates Activity: Resume your previous activity Non-emergency contact: Primary Care Provider Call non-emergency contact if: you have any medication questions and your sympto ms worsen Follow-up/Referrals: Kassy Jacinto CRNP [Primary Care Provider] - Diet: Carb Consistent or DM2 Diet Texture: Easy to Chew Addtl Attending Provider Instructions: You were observed at [facility] from December 22-2020 due to altered mental status. This improved over 2 days of holding your recently prescribed oxycodone therefore suspect your symptoms were secondary to this medication. After physical therapy assessment you were determined to be back to your baseline and are now medically stable for discharge. Please use acetaminophen regularly and/or a lidocaine patch for any ongoing pain. Kind regards, Dr Hussain Ceballos Pending Studies at Discharge: No Stand-Alone Forms: My [facility], Smoking Cessation Medications and DC Order Prescriptions: Continued ketoconazole 2 % Shampoo 1 ea TOPICAL 3XWK RF: 0 amlodipine 5 mg Tablet 5 mg PO QAM RF: 0 ciprofloxacin HCl 500 mg tablet 500 mg PO BID RF: 0 aspirin 81 mg Tablet,Delayed Release (Dr/Ec) 81 mg PO QAM RF: 0 triamcinolone acetonide 0.1 % cream 1 applic TOPICAL BID RF: 0 tamsulosin 0.4 mg capsule 0.4 mg PO QAM RF: 0 triamterene-hydrochlorothiazid 37.5-25 mg Tablet 1 tab PO DAILY PRN (Reason: LOWER LEG SWELLING) RF: 0 omeprazole 20 mg Capsule,Delayed Release(Dr/Ec) 20 mg PO QAM RF: 0 allopurinol 300 mg Tablet 300 mg PO QAM RF: 0 multivitamin with minerals Tablet 1 tab PO QAM RF: 0 metformin 500 mg tablet extended release 24 hr 500 mg PO QDD RF: 0 ferrous fumarate-vitamin C 132-250 mg Tablet 1 tab PO QAM RF: 0 escitalopram oxalate 10 mg tablet 10 mg PO QAM RF: 0 escitalopram oxalate 20 mg Tablet 20 mg PO QPM RF: 0 divalproex 250 mg tablet extended release 24 hr See Rx Instructions .ROUTE .COMPLEX RF: 0 rosuvastatin 10 mg Tablet 10 mg PO QPM RF: 0 fenofibrate nanocrystallized 48 mg Tablet 48 mg PO QPM RF: 0 Discontinued oxycodone 5 mg tablet 5 mg PO Q6H PRN (Reason: pain) Qty: 10 RF: 0 Discharge Orders: Discharge Order (Routine); Ordered 12/25/20 Ordered By: Hussain Edmondson/Other Patient Handouts: High Blood Sugar (Hyperglycemia), Hypoglycemia (Low Blood Sugar), Managing Type 2 Diabetes, A1C Admission Data Admit Date/Time: 12/22/20 22:13 Attending Provider: Hussain Ceballos Admit Provider: Braydon Leahy Primary Care Provider: Kassy Jacinto Other Providers: Braydon Leahy Other Interventions: Discharge Summary Assessment (RN) Last Done: 12/25/20 13:39 Coding Level of Care Code 13058 OBS Care - Discharge Diagnoses Change in mental status R41.82 Altered mental status type: unspecified Mental retardation F79 Closed rib fracture S22.42XD Encounter type: subsequent encounter Fracture healing: with routine healing Laterality: left Rib fracture type: multiple ribs Hypertension I10 Infected prosthesis of left hip T84.52XA Gout M10.9 Seizure disorder G40.909 Anxiety with depression F41.8 Diabetes mellitus E11.9 Dyslipidemia E78.5 BPH w urinary obs/LUTS N40.1; N13.8 GERD (gastroesophageal reflux disease) K21.9
== END 2020-12-25 14:31 | disposition home or self-care (01) ==
LOC: ED 15:22 → 2N 15:22 → SUATTDRO 22:13 → 2N 22:42
DX: E83.42 Hypomagnesemia; R41.82 Altered mental status, unspecified; M10.9 Gout, unspecified; T84.52XA Infection and inflammatory reaction due to internal left hip prosthesis, initial encounter; G40.909 Epilepsy, unspecified, not intractable, without status epilepticus; Y83.1 Surgical operation with implant of artificial internal device as the cause of abnormal reaction of the patient, or of later complication, without mention of misadventure at the time of the procedure; I10 Essential (primary) hypertension; E78.5 Hyperlipidemia, unspecified; Z79.84 Long term (current) use of oral hypoglycemic drugs; F79 Unspecified intellectual disabilities; Z91.030 Bee allergy status; N40.1 Benign prostatic hyperplasia with lower urinary tract symptoms; N13.8 Other obstructive and reflux uropathy; K21.9 Gastro-esophageal reflux disease without esophagitis; S22.42XD Multiple fractures of ribs, left side, subsequent encounter for fracture with routine healing; Z79.899 Other long term (current) drug therapy; E11.9 Type 2 diabetes mellitus without complications; T40.2X5A Adverse effect of other opioids, initial encounter; Z88.0 Allergy status to penicillin; X58.XXXD Exposure to other specified factors, subsequent encounter